=== PATIENT | male | born 1965 | race Caucasian/White ===

== ENCOUNTER → 2017-07-05 11:59 | Outpatient (CLI) | payer OTHER, SELFPAY ==
[2017-07-05 13:11] LABS: Hemoglobin A1c 5.4 % (4.2-6.3)
[2017-07-05 13:17] LABS: Anion Gap 8 (5-15); BUN 14 mg/dL (7-18); Calcium,Total 8.9 mg/dL (8.5-10.1); Chloride 105 mmol/L (98-107); Cholesterol 189 mg/dL (200); Creatinine, Serum 0.94 mg/dL (0.70-1.30); EST Glomerular Filtration Rate 90 mL/min (>60); Est Glom Filt Rate - Afr Amer 109 mL/min (>60); Free T3 3.3 pg/mL (2.18-3.98); Glucose 93 mg/dL (70-110); High Density Lipoprotein 37 mg/dL; Potassium 3.5 mmol/L (3.5-5.1); Sodium Level 140 mmol/L (136-145); T4 Free Direct 0.97 ng/dL (0.76-1.46); Thyroid Stim Hormone (TSH) 0.47 uIU/mL (0.358-3.74); Triglycerides 124 mg/dL; Very Low Density Lipoprotein 25 mg/dL (5-40)
== END ==
PROVIDERS: Family Provider Family Medicine; PCP Family Medicine; Visit Provider Psychiatry & Neurology Psychiatry
DX: F25.9 Schizoaffective disorder, unspecified (principal); Z51.81 Encounter for therapeutic drug level monitoring; Z79.899 Other long term (current) drug therapy
CPT/HCPCS: 36415; 80048; 80061; 80178; 83036; 84439; 84443; 84481

== ENCOUNTER → 2018-01-06 11:14 | Outpatient (CLI) | payer OTHER, SELFPAY ==
[2018-01-06 13:18] LABS: Anion Gap 10 (5-15); BUN 21 mg/dL (7-18); BUN/Creat Ratio 21.8 RATIO (10-20); Calcium,Total 9.1 mg/dL (8.5-10.1); Chloride 106 mmol/L (98-107); Creatinine, Serum 0.96 mg/dL (0.70-1.30); EST Glomerular Filtration Rate 87 mL/min (>60); Est Glom Filt Rate - Afr Amer 105 mL/min (>60); Free T3 3.2 pg/mL (2.18-3.98); Glucose 87 mg/dL (74-106); Potassium 3.7 mmol/L (3.5-5.1); Sodium Level 142 mmol/L (136-145); T4 Free Direct 0.89 ng/dL (0.76-1.46); Thyroid Stim Hormone (TSH) 1.42 uIU/mL (0.358-3.74)
== END ==
PROVIDERS: Family Provider Family Medicine; PCP Family Medicine; Visit Provider Psychiatry & Neurology Psychiatry
DX: F25.9 Schizoaffective disorder, unspecified (principal)
CPT/HCPCS: 36415; 80048; 80178; 84439; 84443; 84481

== ENCOUNTER 2018-01-26 11:40 | Emergency (ER) | payer OTHER, SELFPAY ==
[2018-01-26 11:42] VITALS: BP 154/85; PULSE 63; RESP 18; TEMP 36.9; O2SAT 99; BMI 32.5
--- NOTE | 2018-01-26 12:10 | ED.VISSUMM ---
- ER Visit Summary Date of Service: 01/26/18 Chief Complaint: Nausea, vomiting History of Present Illness: The patient is a 52 M presenting with nausea, vomiting. He states this started around midnight. He has had approximately 8 episodes of vomiting. He denies diarrhea. Denies blood in his emesis. He has epigastric abdominal pain. He had subjective fever initially but he states this has since resolved. He denies sick contacts. He states he ate fried chicken last night. He has a history of hiatal hernia and acid reflux. He was switched from Prevacid to Zantac and would like to be switched back to Prevacid. He has history of appendectomy. No other complaints. Physical Examination: Vitals are stable. Patient is afebrile. Alert no acute distress. HEENT exam scleral icterus Neck is supple. Lungs are clear and equal bilaterally. Heart is regular rate and rhythm. Abdomen is soft mild epigastric tenderness with no rebound or guarding Extremities are unremarkable. Skin is warm and dry. No focal neurologic deficit. Remainder of exam is unremarkable. Emergency Department Course and Treatment: Patient given IV fluids, Zofran. EKG is sinus rate 71 with no acute ischemic changes. CBC shows a white count of 14.4. Chemistries show glucose 153. Liver enzymes show total bili 2.7, direct bili 1.3, alk phos 210, ALT 847, AST 643, lipase 8368. Troponin is negative. CT abdomen and pelvis shows there is new peripancreatic mild inflammation consistent with acute pancreatitis. Gallbladder ultrasound shows there are multiple gallstones and sludge, gallbladder wall thickening, gallbladder distention. Common bile duct is dilated. He is given Zosyn IV. [facility]. Discussed with [facility] for transfer. Disposition: Transfer [facility] Impression: Gallstone pancreatitis This note was generated with [employer] dictation software. It may contain incorrect words, spelling, and punctuation that were not noted in review of the chart prior to signing ED Disposition - Plan for ED Patient: Chief Complaint: Nausea/Vomiting Referrals: Alfred Torres III, MD [Primary Care Provider] -
[2018-01-26] MEDS: 0.9% Normal Saline 1,000 ML 1000 ML IV (12:28)
[2018-01-26] MEDS: Ondansetron 4 MG/2 ML Vial IV ×2 (12:29→16:35)
[2018-01-26 12:31] LABS: Absolute Neutrophil Count 12.8 X10^3/uL (2.0-7.7); Basophil# 0.01 X10^3/uL; Basophil% 0.1 % (0-1); Hemoglobin 14.6 g/dl (13.0-16.5); Lymphocyte % 5.5 % (19-41); Mean Corp Hgb Conc 34.8 g/gl (32-36); Mean Corpuscular Hgb 29.3 pg (27.0-32.0); Mean Corpuscular Volume 84.3 fL (80-94); Mean Platelet Vol. 9.3 fl (6.2-12.0); Monocyte# 0.74 X10^3/uL; Monocyte% 5.1 % (0-10); Neutrophil # 12.84 X10^3/uL (2.7-7.7); Neutrophil % 89.1 % (47-70); Platelet Count 288 K/mm3 (150-450); RBC Distribution Width CV 12.9 % (11.6-14.6); RBC Distribution Width SD 39.5 fl (35.1-43.9); Red Blood Count 4.98 M/mm3 (4.6-6.2); White Blood Count 14.4 K/mm3 (4.4-11.0)
[2018-01-26 12:36] LABS: POSITIVE COUNT NO; POSITIVE DIFFERENTIAL NO; POSITIVE MORPHOLOGY NO
[2018-01-26 12:51] LABS: AST(SGOT) 643 U/L (15-37); Alanine Aminotransfer ALT/SGPT 847 U/L (16-61); Albumin, Serum 3.7 g/dL (3.2-5.0); Alkaline Phosphatase 210 U/L (45-117); Anion Gap 7 (5-15); BUN 15 mg/dL (7-18); BUN/Creat Ratio 16.1 RATIO (10-20); Chloride 104 mmol/L (98-107); Creatinine, Serum 0.93 mg/dL (0.70-1.30); EST Glomerular Filtration Rate 90 mL/min (>60); Est Glom Filt Rate - Afr Amer 109 mL/min (>60); Estimated Creatinine Clearance 92.92 ml/min; Globulin 4.6 g/dL (2.2-4.2); Glucose 153 mg/dL (74-106); Lipase 8368 U/L (73-393); Potassium 3.5 mmol/L (3.5-5.1); Protein, Total 8.3 g/dL (6.4-8.2); Sodium Level 139 mmol/L (136-145)
[2018-01-26 13:24] VITALS: BP 155/79; PULSE 51; RESP 18; O2SAT 97
[2018-01-26 15:47] VITALS: BP 137/76; PULSE 50; RESP 16; O2SAT 97
[2018-01-26] MEDS: Piperacil/Tazobactam 3.375 GM/50 ML ML IV (16:59)
[2018-01-26 17:49] VITALS: BP 153/88; PULSE 87; RESP 16; TEMP 36.6; O2SAT 99
== END 2018-01-26 17:51 | disposition short-term general hospital (02) ==
LOC: ED 12:42
PROVIDERS: Emergency Provider Emergency Medicine; Family Provider Family Medicine; PCP Family Medicine
DX: K85.10 Biliary acute pancreatitis without necrosis or infection (principal); K44.9 Diaphragmatic hernia without obstruction or gangrene; R10.13 Epigastric pain; K21.9 Gastro-esophageal reflux disease without esophagitis; F25.9 Schizoaffective disorder, unspecified; Z79.899 Other long term (current) drug therapy
CPT/HCPCS: 74177; 76705; 80048; 80076; 83690; 84484; 85025; 93005; 96361; 96365; 96375; 96376; 99284; J7030; J7040; Q9967; A4216; J2405

== ENCOUNTER → 2018-04-14 09:05 | Outpatient (CLI) | payer OTHER, SELFPAY ==
[2018-04-14 10:08] LABS: PSA,Total - Annual Screen 4.41 ng/mL (0.00-4.00)
== END ==
PROVIDERS: Family Provider Family Medicine; PCP Family Medicine; Referring Provider Urology; Visit Provider Urology
DX: R97.20 Elevated prostate specific antigen [PSA] (principal)
CPT/HCPCS: 36415; 84153; G0103

== ENCOUNTER → 2018-06-27 11:55 | Outpatient (CLI) | payer OTHER, SELFPAY ==
[2018-06-27 13:34] LABS: Anion Gap 9 (5-15); BUN 17 mg/dL (7-18); BUN/Creat Ratio 15.9 RATIO (10-20); Calcium,Total 8.7 mg/dL (8.5-10.1); Chloride 105 mmol/L (98-107); Creatinine, Serum 1.07 mg/dL (0.70-1.30); EST Glomerular Filtration Rate 77 mL/min (>60); Est Glom Filt Rate - Afr Amer 93 mL/min (>60); Free T3 2.7 pg/mL (2.18-3.98); Glucose 106 mg/dL (74-106); Potassium 3.5 mmol/L (3.5-5.1); Sodium Level 141 mmol/L (136-145); T4 Free Direct 0.88 ng/dL (0.76-1.46); Thyroid Stim Hormone (TSH) 2.04 uIU/mL (0.358-3.74)
== END ==
PROVIDERS: Family Provider Family Medicine; PCP Family Medicine; Referring Provider Psychiatry & Neurology Psychiatry; Visit Provider Psychiatry & Neurology Psychiatry
DX: F25.9 Schizoaffective disorder, unspecified (principal); E03.9 Hypothyroidism, unspecified; Z79.899 Other long term (current) drug therapy
CPT/HCPCS: 36415; 80048; 80178; 84439; 84443; 84481

== ENCOUNTER → 2018-10-10 16:16 | Outpatient (CLI) | payer OTHER, SELFPAY ==
[2018-10-10 17:41] LABS: PSA,Total- Diagnostic 4.02 ng/mL (0.0-4.0)
== END ==
PROVIDERS: Family Provider Family Medicine; PCP Family Medicine; Referring Provider Urology; Visit Provider Urology
DX: R97.20 Elevated prostate specific antigen [PSA] (principal)
CPT/HCPCS: 36415; 84153

== ENCOUNTER → 2019-01-02 07:34 | Outpatient (CLI) | payer OTHER, SELFPAY ==
[2019-01-02 08:58] LABS: Anion Gap 7 (5-15); BUN 16 mg/dL (7-18); BUN/Creat Ratio 14.2 RATIO (10-20); Calcium,Total 9.1 mg/dL (8.5-10.1); Chloride 107 mmol/L (98-107); Creatinine, Serum 1.13 mg/dL (0.70-1.30); EST Glomerular Filtration Rate 72 mL/min (>60); Est Glom Filt Rate - Afr Amer 87 mL/min (>60); Glucose 82 mg/dL (74-106); Potassium 3.9 mmol/L (3.5-5.1); Sodium Level 143 mmol/L (136-145); T4 Free Direct 0.84 ng/dL (0.76-1.46); Thyroid Stim Hormone (TSH) 0.91 uIU/mL (0.358-3.74)
== END ==
PROVIDERS: Family Provider Family Medicine; PCP Family Medicine; Referring Provider Psychiatry & Neurology Psychiatry; Visit Provider Psychiatry & Neurology Psychiatry
DX: E03.9 Hypothyroidism, unspecified (principal)
CPT/HCPCS: 36415; 80048; 80178; 84439; 84443; 84481

== ENCOUNTER → 2019-02-25 07:31 | Outpatient (CLI) | payer OTHER, SELFPAY ==
[2019-02-25 09:29] LABS: T4 Free Direct 0.93 ng/dL (0.76-1.46); Thyroid Stim Hormone (TSH) 0.87 uIU/mL (0.358-3.74)
== END ==
PROVIDERS: Family Provider Family Medicine; PCP Family Medicine; Referring Provider Psychiatry & Neurology Psychiatry; Visit Provider Psychiatry & Neurology Psychiatry
DX: E03.9 Hypothyroidism, unspecified (principal)
CPT/HCPCS: 36415; 84439; 84443; 84481

== ENCOUNTER → 2019-06-30 08:18 | Outpatient (CLI) | payer OTHER, SELFPAY ==
[2019-06-30 10:57] LABS: Anion Gap 2 (5-15); BUN 13 mg/dL (7-18); BUN/Creat Ratio 12.1 RATIO (10-20); Calcium,Total 9.9 mg/dL (8.5-10.1); Chloride 101 mmol/L (98-107); Creatinine, Serum 1.07 mg/dL (0.70-1.30); EST Glomerular Filtration Rate 77 mL/min (>60); Est Glom Filt Rate - Afr Amer 93 mL/min (>60); Free T3 3.1 pg/mL (2.18-3.98); Glucose 74 mg/dL (74-106); Potassium 3.6 mmol/L (3.5-5.1); Sodium Level 134 mmol/L (136-145); T4 Free Direct 1.08 ng/dL (0.76-1.46); Thyroid Stim Hormone (TSH) 0.27 uIU/mL (0.358-3.74)
== END ==
PROVIDERS: PCP Family Medicine; Referring Provider Psychiatry & Neurology Psychiatry; Visit Provider Psychiatry & Neurology Psychiatry
DX: E03.9 Hypothyroidism, unspecified (principal); Z51.81 Encounter for therapeutic drug level monitoring; Z79.899 Other long term (current) drug therapy
CPT/HCPCS: 36415; 80048; 80178; 84439; 84443; 84481

== ENCOUNTER → 2020-01-11 11:18 | Outpatient (CLI) | payer OTHER, SELFPAY ==
[2020-01-11 13:15] LABS: ALB/GLOB Ratio 0.9 RATIO (0.9-2.4); AST(SGOT) 17 U/L (15-37); Alanine Aminotransfer ALT/SGPT 25 U/L (16-61); Albumin, Serum 3.7 g/dL (3.2-5.0); Alkaline Phosphatase 57 U/L (45-117); Anion Gap 6 (5-15); BUN 19 mg/dL (7-18); BUN/Creat Ratio 19.3 RATIO (10-20); Chloride 107 mmol/L (98-107); Cholesterol 177 mg/dL (200); Creatinine, Serum 0.98 mg/dL (0.70-1.30); EST Glomerular Filtration Rate 84 mL/min (>60); Est Glom Filt Rate - Afr Amer 102 mL/min (>60); Free T3 2.9 pg/mL (2.18-3.98); Globulin 3.9 g/dL (2.2-4.2); Glucose 92 mg/dL (74-106); High Density Lipoprotein 39 mg/dL; Potassium 3.7 mmol/L (3.5-5.1); Protein, Total 7.6 g/dL (6.4-8.2); Sodium Level 139 mmol/L (136-145); T4 Free Direct 0.99 ng/dL (0.76-1.46); Thyroid Stim Hormone (TSH) 0.71 uIU/mL (0.358-3.74); Triglycerides 115 mg/dL; Very Low Density Lipoprotein 23 mg/dL (5-40)
== END ==
PROVIDERS: PCP Family Medicine; Visit Provider Psychiatry & Neurology Psychiatry
DX: E03.9 Hypothyroidism, unspecified (principal); Z79.899 Other long term (current) drug therapy
CPT/HCPCS: 36415; 80053; 80061; 80178; 84439; 84443; 84481

== ENCOUNTER → 2020-03-03 12:32 | Outpatient (CLI) | payer OTHER, SELFPAY ==
[2020-03-03 15:33] LABS: PSA,Total- Diagnostic 3.24 ng/mL (0.0-4.0)
== END ==
PROVIDERS: PCP Family Medicine; Referring Provider Urology; Visit Provider Urology
DX: R97.20 Elevated prostate specific antigen [PSA] (principal)
CPT/HCPCS: 36415; 84153

== ENCOUNTER → 2020-08-22 07:30 | Outpatient (CLI) | payer OTHER, SELFPAY ==
[2020-08-22 08:38] LABS: AST(SGOT) 19 U/L (15-37); Alanine Aminotransfer ALT/SGPT 35 U/L (16-61); Albumin, Serum 3.7 g/dL (3.2-5.0); Alkaline Phosphatase 60 U/L (45-117); Anion Gap 4 (5-15); BUN 22 mg/dL (7-18); BUN/Creat Ratio 22.6 RATIO (10-20); Calcium,Total 8.9 mg/dL (8.5-10.1); Chloride 108 mmol/L (98-107); Cholesterol 179 mg/dL (200); Creatinine, Serum 0.97 mg/dL (0.70-1.30); EST Glomerular Filtration Rate 85 mL/min (>60); Est Glom Filt Rate - Afr Amer 103 mL/min (>60); Free T3 2.8 pg/mL (2.18-3.98); Globulin 3.8 g/dL (2.2-4.2); Glucose 95 mg/dL (74-106); High Density Lipoprotein 38 mg/dL; Potassium 4.1 mmol/L (3.5-5.1); Protein, Total 7.5 g/dL (6.4-8.2); Sodium Level 139 mmol/L (136-145); T4 Free Direct 0.93 ng/dL (0.76-1.46); Thyroid Stim Hormone (TSH) 0.85 uIU/mL (0.358-3.74); Triglycerides 105 mg/dL; Very Low Density Lipoprotein 21 mg/dL (5-40)
== END ==
PROVIDERS: PCP Family Medicine
DX: E88.81 Metabolic syndrome and other insulin resistance (principal)
CPT/HCPCS: 36415; 80053; 80061; 84439; 84443; 84481

== ENCOUNTER 2022-12-22 08:55 | Emergency (ER) | payer OTHER, SELFPAY ==
[2022-12-22 08:56] VITALS: BP 123/80; PULSE 73; RESP 16; TEMP 36.2; O2SAT 98; BMI 28.0
--- NOTE | 2022-12-22 09:21 | EX.ED.DYSGE1 ---
HPI History of Present Illness Chief Complaint: Dizziness Narrative Narrative: 57-year-old male past medical history of previous vertigo episode 15 years ago presents with dizziness that he has had since evening, 2-1/2 days ago. He states that at work, he began feeling vertiginous-like symptoms. It was worse when he bent forward, and when he looks up or down. He does describe a mild spinning sensation associated with nausea but no vomiting. No other neurological symptoms, he states he gets more dizzy when he turns his head side to side as well. This is very similar to his vertigo when he states that he had a maneuver performed and was given the medication to take for when it flares up. He really has not had problems in years, but this feels very similar. He denies any paresthesias, or any other symptoms. PFSH PFSH Home Medications lamotrigine 100 mg tablet,extended release 24 hr (Lamictal XR) 100 mg PO DAILY 09/16/16 [History Last Taken 09/16/16 04:00] levothyroxine 88 mcg tablet 88 mcg PO DAILY 09/16/16 [History Last Taken 09/16/16 04:00] liothyronine 5 mcg tablet 10 mcg PO BREAKFAST 09/16/16 [History Last Taken 09/16/16 04:00] lithium carbonate 300 mg tablet,extended release 600 mg PO QHS 09/16/16 [History Last Taken 02/22/17] methylphenidate HCl 10 mg tablet,extended release 10 mg PO BID 09/16/16 [History Last Taken 09/16/16 21:00] propranolol 10 mg tablet 20 mg PO BREAKFAST 09/16/16 [History Last Taken 09/16/16 21:00] risperidone 3 mg tablet (Risperdal) 3 mg PO QHS 09/16/16 [History Last Taken 09/16/16 21:00] liothyronine 5 mcg tablet 5 mcg PO DINNER 09/17/16 [History Last Taken 09/16/16 16:30] propranolol 10 mg tablet 20 mg PO 1700 02/23/17 [History Last Taken Unknown] Ranitidine [Zantac] 150 mg PO DAILY 01/26/18 [History Last Taken Unknown] meclizine 25 mg tablet 25 mg PO 4X/DAY PRN PRN Dizziness #20 tabs 12/22/22 [Rx Last Taken Unknown] Allergy/AdvReac Type Severity Reaction Status Date / Time latex Allergy Rash Verified 12/22/22 08:59 red dye Allergy Rash Verified 12/22/22 08:59 Sulfa (Sulfonamide Allergy Unknown Verified 12/22/22 08:59 Antibiotics) flonase AdvReac Mild nose bleed Uncoded 12/22/22 08:59 Social History Smoking Status: Never smoker ROS ROS ED ROS Narrative Constitutional: No fever, no chills. HEENT: No sore throat. No neck pain. No loss of vision. No rhinorrhea. Cardiovascular: No chest pain. No palpitations. No pedal edema. Respiratory: No cough, no shortness of breath. Abdominal: No abdominal pain. Positive nausea. No vomiting. Genitourinary: No dysuria. No hematuria. Musculoskeletal: No myalgias. No arthralgias. Neurologic: No headaches. Positive vertigo worse with looking up and down, bending forward, and moving head [id number]. No lightheadedness. Skin: No rash. No change in color. Psychiatric: No depression. No anxiety. EXAM Physical Exam Narrative Exam Narrative: Afebrile. Vital signs noted. HEENT: Normocephalic. Atraumatic. PERRL, EOMI. Neck soft and supple. No point tenderness or step off. Cardiovascular: Regular rate and rhythm. No murmurs, rubs, or gallops appreciated. Respiratory: No tachypnea. Lungs clear to auscultation bilaterally. Gastrointestinal: Abdomen soft, nontender, with normoactive bowel sounds. No rebound or guarding. Neurological: Awake. Alert. Oriented x3. Nonfocal, nonlateralizing. DTRs equal and symmetric. Skin: No rash. Normal color. No pallor. Musculoskeletal: No pedal edema. Full range of motion extremities. Const Vital Signs: 12/22/22 08:56 Temperature 97.2 F L Temperature Source Temporal Pulse Rate 73 Respiratory Rate 16 Blood Pressure 123/80 H Blood Pressure Mean 94 Pulse Ox 98 Oxygen Delivery Method Room Air MDM MDM MDM Narrative Medical decision making narrative: I reviewed the patient's prior records. Although he has history of schizoaffective disorder and takes lithium, I do not feel that this is lithium toxicity. Chinyere maneuver was performed, and the patient showed mild to moderate improvement. He was given a meclizine tablet here in the emergency department and I wrote him a prescription to take 4 times a day as needed. I do not feel that CT imaging of the brain is indicated, nor do I feel that currently any laboratory work is indicated. He showed improvement with the maneuver and with meclizine. Upon repeat examination at approximately 10:15 AM, he is feeling improved. His is comfortable taking him home. I feel he can be discharged safely home with follow-up to his primary care provider. He was given a prescription for meclizine as stated previously. Return instructions to the emergency department were reviewed. Disposition is discharged home in improved and stable condition. Discharge Plan Triage Chief Complaint: Dizziness ED Provider: Manoj Fritz Dx/Rx/DC Orders Clinical Impression: Vertigo, Bipolar disorder Instructions: ED BPV Vertigo Prescriptions: New meclizine 25 mg tablet 25 mg PO 4X/DAY PRN PRN (Reason: Dizziness) Qty: 20 0RF No Action methylphenidate HCl 10 MG tablet extended release 10 mg PO BID Patient Comments: helps with concentration - states he usually only takes during week when he needs to concentrate lithium carbonate 300 MG tablet extended release 600 mg PO QHS Patient Comments: supplement liothyronine 5 MCG tablet 10 mcg PO BREAKFAST Patient Comments: thyroid risperidone [Risperdal] 3 MG tablet 3 mg PO QHS Patient Comments: bipolar levothyroxine 88 MCG tablet 88 mcg PO DAILY Patient Comments: thyroid propranolol 10 MG tablet 20 mg PO BREAKFAST Patient Comments: tremors lamotrigine [Lamictal XR] 100 MG tablet extended release 24hr 100 mg PO DAILY Patient Comments: bipolar liothyronine 5 MCG tablet 5 mcg PO DINNER Patient Comments: thyroid propranolol 10 MG tablet 20 mg PO 1700 Patient Comments: TREMORS Ranitidine [Zantac] 150 MG tablet 150 mg PO DAILY Primary Care Provider: Ziyad Antunez Disposition Disposition: Home, Self Care
[2022-12-22] MEDS: Meclizine HCl 25 MG Tablet PO (09:28)
== END 2022-12-22 10:19 | disposition home or self-care (01) ==
PROVIDERS: Emergency Provider Emergency Medicine; PCP Family Medicine; Visit Provider Emergency Medicine
DX: R42 Dizziness and giddiness (principal); F25.9 Schizoaffective disorder, unspecified; F31.9 Bipolar disorder, unspecified; Z79.899 Other long term (current) drug therapy
CPT/HCPCS: 99283

== ENCOUNTER 2023-01-05 21:50 | Emergency (ER) | payer OTHER, SELFPAY ==
[2023-01-05 21:50] VITALS: BP 125/82; PULSE 94; RESP 15; TEMP 36.7; O2SAT 96; BMI 27.3
--- NOTE | 2023-01-05 22:38 | EDS_ITS ---
HPI History of Present Illness Chief Complaint: Nausea/Vomiting/Diarrhea Informant: patient and spouse/S.O. Narrative Narrative: Patient presents with nausea vomiting diarrhea. Patient states he felt fine yesterday. Last evening about 8 PM he had some [place] food. In less than 30 minutes he started with nausea vomiting. He has been vomiting anything he tries to eat or drink since. He has had some watery diarrhea that is also developed. He has never had blood in the stool or vomitus. No fevers. He states his stomach does not hurt he just cannot keep anything down. This is not a recurrent problem or something he has had issues with before. He does have GERD but this does not at all feel like it. He is on medicines for psychiatric illness as well as thyroid disease but none of these are new or different meds or dosages. Prior surgeries include both gallbladder and appendectomy. [facility] Medical History Bipolar 1 disorder Hypothyroid Home Medications lamotrigine 100 mg tablet,extended release 24 hr (Lamictal XR) 100 mg PO DAILY 09/16/16 [History Last Taken 01/04/23] levothyroxine 88 mcg tablet 88 mcg PO DAILY 09/16/16 [History Last Taken 01/04/23] liothyronine 5 mcg tablet 10 mcg PO BREAKFAST 09/16/16 [History Last Taken 01/04/23] methylphenidate HCl 10 mg tablet,extended release 15 mg PO BID 09/16/16 [History Last Taken 09/16/16 21:00] propranolol 10 mg tablet 10 mg PO Q12H 09/16/16 [History Last Taken 01/04/23] risperidone 3 mg tablet (Risperdal) 3 mg PO QHS 09/16/16 [History Last Taken 01/04/23] liothyronine 5 mcg tablet 5 mcg PO DINNER 09/17/16 [History Last Taken 01/04/23] meclizine 25 mg tablet 25 mg PO 4X/DAY PRN PRN Dizziness #20 tabs 12/22/22 [Rx Last Taken Unknown] famotidine 20 mg tablet (Acid Controller) 20 mg PO BID 01/05/23 [History Last Taken Unknown] ondansetron 4 mg disintegrating tablet 4 mg PO Q8H PRN PRN Nausea #10 tabs 01/06/23 [Rx Last Taken Unknown] promethazine 25 mg tablet 25 mg PO Q6H PRN PRN Nausea #10 TABLETS 01/06/23 [Rx Last Taken Unknown] Allergy/AdvReac Type Severity Reaction Status Date / Time latex Allergy Rash Verified 12/22/22 08:59 red dye Allergy Rash Verified 01/05/23 21:54 Sulfa (Sulfonamide Allergy Unknown Verified 01/05/23 21:54 Antibiotics) flonase AdvReac Mild nose bleed Uncoded 12/22/22 08:59 Social History Smoking Status: Never smoker ROS ROS ED ROS Narrative A complete review of systems was performed and is negative except as documented in the history of present illness. Some specific details below. Constitutional: No recent fevers or chills. EYE: No visual complaints or pain. ENT: No difficulty swallowing. No swelling. No pain. No GERD symptoms. CV: No chest pain or palpitations. Respiratory: No dyspnea. No hemoptysis. No difficulty taking breaths. GI: Please see history of present illness. : No frequency dysuria or hematuria. He is still making urine. Musculoskeletal: No recent trauma. No pains. Skin: No rash. Nondiaphoretic. Neuro: No weakness or numbness. Endocrine: No polyuria or polydipsia. EXAM Physical Exam Narrative Exam Narrative: CONSTITUTIONAL: Patient is nontoxic in appearance. The patient looks comfortable. HEENT: No notable trauma. Mucous membranes do look dry. No thrush. No indication of pain with swallowing. EYES: No conjunctival injection. No proptosis. CARDIOVASCULAR: Regular rate. Regular rhythm. No notable murmur. No JVD. He is not tachycardic. RESPIRATORY: No respiratory distress. Breathing is unlabored. No wheezes. No rhonchi. No rales. No pain with a deep breath. GASTROINTESTINAL: Not distended. Bowel sounds are normal to possibly just slightly increased. No tenderness. No guarding. No rebound. No palpable mass. No bruit. Overall his abdomen is quite benign. GENITOURINARY: No tenderness over the bladder. No CVA tenderness. MUSCULOSKELETAL: Atraumatic. No peripheral edema. No cord. No tenderness along the deep venous system. No asymmetry. NEUROLOGICAL: Patient is alert and appropriate. No focal deficit noted. SKIN: No noted rashes. No diaphoresis. PSYCHIATRIC: Patient is calm. Mood is appropriate. Const Vital Signs: 01/05/23 21:50 01/05/23 23:50 Temperature 98.1 F 98.2 F Temperature Source Temporal Oral Pulse Rate 94 66 Respiratory Rate 15 16 Blood Pressure 125/82 H 133/80 H Blood Pressure Mean 96 97 Pulse Ox 96 98 Oxygen Delivery Method Room Air Room Air MDM MDM MDM Narrative Medical decision making narrative: Patient may have viral illness or reaction to food. MSG reaction is possible but he does not have palpitations chest pain headache tingling or, no other symptoms. We will do some basic blood work to make sure he does not have a markedly abnormal white count, anemia or acute kidney injury or electrolyte abnormalities of significance. I did not do a liver function test that there is no indication of jaundice or hepatic tenderness. I did not do lipase as there is no abdominal or back pain or tenderness. There is no history of pancreatitis. 12: 40 Patient has gotten IV fluids and Zofran. He has no nausea at all now. He does feel better. He looks better. We will try him on some p.o. fluids. Patient CBC shows no acute abnormalities. Patient's electrolytes show mild elevation in the BUN and BUN to creatinine ratio consistent with dehydration but creatinine is preserved. Patient's glucose was a bit high at 113 but this should self correct. 01: 40 Patient is rechecked. He has been drinking liquids. The nausea is gone. He is still having some diarrhea with the liquid. But he feels much better. We will get him home. I explained that we usually do not give much stop the diarrhea in the first few days. Hopefully this will be gone within 1 to 3 days. I will write for Zofran and Phenergan so he has options. We discussed reasons to return. Lab Data Attestation: I reviewed the patient's lab results. Labs: Laboratory Results - last 24 hr 01/05/23 23:40 WBC 8.1 RBC 5.27 Hgb 15.1 Hct 46.2 MCV 87.7 MCH 28.7 MCHC 32.7 RDW Std Deviation 43.1 RDW Coeff of Monica 13.3 Plt Count 290 MPV 9.5 Immature Gran % (Auto) 0.200 Neut % (Auto) 60.0 Lymph % (Auto) 24.6 [place] % (Auto) 14.3 H Eos % (Auto) 0.5 Baso % (Auto) 0.4 Absolute Neuts (auto) 4.9 Absolute Lymphs (auto) 2.00 Nucleated RBC % 0 Sodium 141 Potassium 3.6 Chloride 109 H Carbon Dioxide 26.0 Anion Gap 6 BUN 31 H Creatinine 0.98 Estim Creat Clear Calc 83.16 Est GFR (MDRD) Af Amer 101 Est GFR (MDRD) Non-Af 84 BUN/Creatinine Ratio 31.6 H Glucose 113 H Calcium 9.3 Discharge Plan Triage Chief Complaint: Nausea/Vomiting/Diarrhea ED Provider: Zay Olivarez Dx/Rx/DC Orders Clinical Impression: Nausea vomiting and diarrhea, Acute dehydration Instructions: ED Diet Vomiting Diarrhea, ED Food Poisoning (Adult) Prescriptions: New promethazine [promethazine] 25 mg tablet 25 mg PO Q6H PRN PRN (Reason: Nausea) Qty: 10 0RF ondansetron [ondansetron] 4 mg tablet,disintegrating 4 mg PO Q8H PRN PRN (Reason: Nausea) Qty: 10 0RF No Action methylphenidate HCl 10 MG tablet extended release 15 mg PO BID Patient Comments: helps with concentration - states he usually only takes during week when he needs to concentrate liothyronine 5 MCG tablet 10 mcg PO BREAKFAST Patient Comments: thyroid risperidone [Risperdal] 3 MG tablet 3 mg PO QHS Patient Comments: bipolar levothyroxine 88 MCG tablet 88 mcg PO DAILY Patient Comments: thyroid propranolol 10 MG tablet 10 mg PO Q12H Patient Comments: tremors lamotrigine [Lamictal XR] 100 MG tablet extended release 24hr 100 mg PO DAILY Patient Comments: bipolar liothyronine 5 MCG tablet 5 mcg PO DINNER Patient Comments: thyroid meclizine 25 mg tablet 25 mg PO 4X/DAY PRN PRN (Reason: Dizziness) Qty: 20 0RF famotidine [Acid Controller] 20 mg tablet 20 mg PO BID Primary Care Provider: Ziyad Antunez Referrals: Ziyad Antunez MD [Primary Care Provider] - 1-2 Days if not improving Disposition Disposition: Home, Self Care
[2023-01-05 23:50] VITALS: BP 133/80; PULSE 66; RESP 16; TEMP 36.8; O2SAT 98
[2023-01-06 00:03] LABS: Absolute Neutrophil Count 4.9 X10^3/uL (2.0-7.7); Basophil# 0.03 X10^3/uL; Basophil% 0.4 % (0-1); Eosinophil# 0.04 X10^3/uL; Eosinophils% 0.5 % (0-5); Hematocrit 46.2 % (40-54); Hemoglobin 15.1 g/dL (13.0-16.5); Lymphocyte % 24.6 % (19-41); Mean Corp Hgb Conc 32.7 g/dL (32-36); Mean Corpuscular Hgb 28.7 pg (27.0-32.0); Mean Corpuscular Volume 87.7 fL (80-94); Mean Platelet Vol. 9.5 fl (6.2-12.0); Monocyte# 1.16 X10^3/uL; Monocyte% 14.3 % (0-10); NRBC Flagged by Analyzer 0 % (0-5); Neutrophil # 4.89 X10^3/uL (2.7-7.7); Platelet Count 290 K/mm3 (150-450); RBC Distribution Width CV 13.3 % (11.6-14.6); RBC Distribution Width SD 43.1 fl (35.1-43.9); Red Blood Count 5.27 M/mm3 (4.6-6.2); White Blood Count 8.1 K/mm3 (4.4-11.0)
[2023-01-06] MEDS: 0.9% Normal Saline 1,000 ML 1000 ML IV (00:14)
[2023-01-06] MEDS: Ondansetron 4 MG/2 ML Vial IV (00:15)
[2023-01-06 00:20] LABS: Anion Gap 6 (5-15); BUN 31 mg/dL (7-18); BUN/Creat Ratio 31.6 RATIO (10-20); Calcium,Total 9.3 mg/dL (8.5-10.1); Chloride 109 mmol/L (98-107); Creatinine, Serum 0.98 mg/dL (0.70-1.30); EST Glomerular Filtration Rate 84 mL/min (>60); Est Glom Filt Rate - Afr Amer 101 mL/min (>60); Estimated Creatinine Clearance 83.16 ml/min; Glucose 113 mg/dL (74-106); Potassium 3.6 mmol/L (3.5-5.1); Sodium Level 141 mmol/L (136-145)
[2023-01-06 01:00] VITALS: BP 128/80; PULSE 68; RESP 16; TEMP 36.6; O2SAT 98
[2023-01-06 02:08] VITALS: BP 122/80; PULSE 67; RESP 16; TEMP 36.6; O2SAT 99
== END 2023-01-06 02:10 | disposition home or self-care (01) ==
PROVIDERS: Emergency Provider Emergency Medicine; PCP Family Medicine; Visit Provider Emergency Medicine
DX: R11.2 Nausea with vomiting, unspecified (principal); F31.9 Bipolar disorder, unspecified; E86.0 Dehydration; R19.7 Diarrhea, unspecified; E03.9 Hypothyroidism, unspecified; K21.9 Gastro-esophageal reflux disease without esophagitis; Z79.899 Other long term (current) drug therapy; Z79.890 Hormone replacement therapy
CPT/HCPCS: 80048; 85025; 96361; 96374; 99282; J7030; A4216; J2405

== ENCOUNTER 2024-04-22 13:43 | Emergency (ER) | payer OTHER, SELFPAY ==
[2024-04-22 13:44] VITALS: BP 143/89; PULSE 90; RESP 16; TEMP 37.3; O2SAT 98; BMI 30.2
[2024-04-22 14:24] LABS: Absolute Lymphocyte Count 1.47 X10^3/uL (0.83-4.51); Absolute Neutrophil Count 3.3 X10^3/uL (2.0-7.7); Basophil# 0.03 X10^3/uL; Basophil% 0.6 % (0-1); Eosinophil# 0.08 X10^3/uL; Eosinophils% 1.5 % (0-5); Hemoglobin 14.2 g/dL (13.0-16.5); Lymphocyte # 1.47 X10^3/ul (0.83-4.51); Lymphocyte % 27.3 % (19-41); Mean Corp Hgb Conc 33.8 g/dL (32-36); Mean Corpuscular Volume 85.9 fL (80-94); Mean Platelet Vol. 9.1 fl (6.2-12.0); Monocyte# 0.47 X10^3/uL; Monocyte% 8.7 % (0-10); NRBC Flagged by Analyzer 0 % (0-5); Neutrophil # 3.31 X10^3/uL (2.7-7.7); Neutrophil % 61.5 % (47-70); Platelet Count 259 K/mm3 (150-450); RBC Distribution Width SD 40.1 fl (35.1-43.9); Red Blood Count 4.89 M/mm3 (4.6-6.2); White Blood Count 5.4 K/mm3 (4.4-11.0)
[2024-04-22 14:44] VITALS: BP 134/80; PULSE 76; RESP 23; O2SAT 95
[2024-04-22 14:47] LABS: Anion Gap 6 (5-15); BUN 18 mg/dL (7-18); Calcium,Total 9.3 mg/dL (8.5-10.1); Chloride 107 mmol/L (98-107); Creatinine, Serum 1.29 mg/dL (0.70-1.30); EST Glomerular Filtration Rate 61 mL/min (>60); Est Glom Filt Rate - Afr Amer 73 mL/min (>60); Estimated Creatinine Clearance 69.37 ml/min; Glucose 95 mg/dL (74-106); Potassium 4.3 mmol/L (3.5-5.1); Sodium Level 139 mmol/L (136-145); Troponin-I HS (w/2H Reflex) < 3 pg/mL (3.0-78.0)
[2024-04-22 15:00] VITALS: BP 137/74; PULSE 74; RESP 23; O2SAT 96
[2024-04-22 15:20] VITALS: BP 137/74; PULSE 74; RESP 23; TEMP 36.8; O2SAT 96
[2024-04-22 16:17] LABS: Reflex Troponin-HS? (from REC) Y
== END 2024-04-22 15:25 | disposition home or self-care (01) ==
PROVIDERS: Emergency Provider Emergency Medicine; PCP Family Medicine; Referring Provider Emergency Medicine; Visit Provider Emergency Medicine
DX: R07.89 Other chest pain (principal); T47.1X5A Adverse effect of other antacids and anti-gastric-secretion drugs, initial encounter; K21.9 Gastro-esophageal reflux disease without esophagitis; Z79.899 Other long term (current) drug therapy
CPT/HCPCS: 71046; 80048; 84484; 85025; 93005; 99285

== ENCOUNTER 2024-05-25 16:47 | Emergency (ER) | payer OTHER, SELFPAY ==
[2024-05-25 16:48] VITALS: BP 152/74; PULSE 86; RESP 16; TEMP 36.6; O2SAT 96; BMI 28.4
--- NOTE | 2024-05-25 17:10 | EKG12_ITS ---
Test Reason : MEDICAL CLEARANCE Blood Pressure : */* mmHG Vent. Rate : 84 BPM Atrial Rate : 84 BPM P-R Int : 188 ms QRS Dur : 94 ms QT Int : 386 ms P-R-T Axes : 18 9 17 degrees QTcB Int : 456 ms Normal sinus rhythm Inferior infarct , age undetermined Abnormal ECG Confirmed by MILTON JAIME, NAM ([id number]), film and video editor BISI HERNANDEZ ([id number]) on 05/27/2024 6:33:35 AM Referred By: Confirmed By: NAM ROSE MD
--- NOTE | 2024-05-25 17:19 | EX.ED.VIS.PS ---
HPI HPI - Psych History of Present Illness Chief Complaint: Mental Health Narrative Narrative: Chief complaint and HPI: Paranoia. 59-year-old male with past medical history of schizoaffective disorder, bipolar disorder presents for evaluation of paranoia. History taken by patient as well as daughter over the phone and in the room. Patient states that he has not been taking his medication correctly. He states that he has been hearing voices but cannot make out what they are saying. He states that he is worried about the AI on his phone as he is concerned they are going to try and kill people. His daughter over the phone states that her father has had a flat affect today. He told her today that he has been having nightmares that the world is going to end. states that he has been very paranoid today and states that he does not trust her. She states that he is usually not like this. She states he is having difficulty concentrating. He denies any suicidal or homicidal ideations. Denies any visual hallucinations. Denies any fever, chills, shortness of breath, chest pain abdominal pain, nausea, vomiting, dysuria Review of systems: See HPI Medications: As listed on the chart Allergies: As listed on the chart PFSH: Per chart Vital signs: As listed on the chart. Reviewed. Physical exam: Gen: NAD Head: Normocephalic, atraumatic Eyes: No sclera icterus, conjunctiva clear, PERRL,EOMI ENT: Moist mucous membranes Neck: Trachea midline, No JVD CV: RRR, no murmurs, no peripheral edema Resp: Lungs CTA BL, no w/r/c GI: Abd soft, non-distended, non-tender, no r/r/g Musc: Full ROM, no deformity Skin: Warm, dry Neuro: Alert, grossly intact, sensation intact Psych: Paranoid, flat [facility] History Catatonia C. difficile colitis Cholecystectomy planned Thyroid disease Pneumonia High cholesterol Generalized headaches Gastrointestinal problem Gallstones Cataracts, bilateral Bone fracture Back problem Asthma Arthritis Alcohol abuse Bipolar 1 disorder Hypothyroid Home Medications ?Medication ?Instructions ?Recorded ?Last Taken ?Type liothyronine 5 mcg tablet 5 mcg PO BID 09/16/16 01/04/23 History propranolol 10 mg tablet 10 mg PO Q12H 09/16/16 01/04/23 History lamotrigine 100 mg disintegrating 100 mg PO QDAY 01/14/24 Unknown History tablet levothyroxine 100 mcg tablet 100 mcg PO QDAY disorder of 01/14/24 Unknown History thyroid gland alfuzosin 10 mg tablet,extended 10 mg PO DAILY 04/22/24 Unknown History release 24 hr lansoprazole 30 mg capsule,delayed 30 mg PO BID 04/22/24 Unknown History release tadalafil 5 mg tablet 5 mg PO DAILY 04/22/24 Unknown History paliperidone 3 mg tablet,extended 3 mg PO QHS 05/21/24 Unknown History release 24 hr trazodone 50 mg tablet 50 mg PO QHS PRN sleep #30 tabs 05/21/24 Unknown Rx cephalexin 500 mg capsule 500 mg PO Q6H 7 days #28 caps 05/25/24 Unknown Rx esomeprazole magnesium 40 mg 40 mg PO BID 05/25/24 Unknown History capsule,delayed release Allergy/AdvReac Type Severity Reaction Status Date / Time fluticasone (From Flonase) Allergy nose bleed Verified 05/25/24 16:48 latex Allergy Rash Verified 05/25/24 16:48 red dye Allergy Rash Verified 05/25/24 16:48 Sulfa (Sulfonamide Allergy Unknown Verified 05/25/24 16:48 Antibiotics) Family History Other Arthritis Cancer Colon cancer Diabetes Heart disease Hypertension Skin cancer Uterine cancer Surgical History History of appendectomy H/O wisdom tooth extraction Social History Smoking Status: Never smoker alcohol intake: never substance use type: does not use what type of physical activity do you participate in: none EXAM Physical Exam Const Vital Signs: 05/25/24 16:48 05/25/24 17:47 05/25/24 20:30 Temperature 97.8 F 97.9 F Temperature Source Oral Pulse Rate 86 88 Respiratory Rate 16 16 18 Blood Pressure 152/74 H 137/77 H Blood Pressure Mean 100 97 Pulse Ox 96 95 Oxygen Delivery Method Room Air Room Air MDM MDM MDM Narrative Medical decision making narrative: 59-year-old male with past medical history of schizoaffective disorder, bipolar disorder presents for evaluation of paranoia. Patient has a flat affect and admits to auditory hallucinations. He is paranoid. Differential diagnosis includes but is not limited to exacerbation of schizoaffective disorder, exacerbation of his bipolar disorder. Suspect less likely intoxication or electrolyte abnormality. Patient will be pink slipped. Patient would benefit from inpatient psychiatric placement. agrees. Laboratory workup ordered for clearance. CBC unremarkable without leukocytosis or anemia. BMP relatively unremarkable. UA positive for UTI. Patient denies any dysuria. Urine culture sent. Keflex ordered per EMRA recommendations given that patient had no recent antibiotics use and has a low risk for resistance. He will be prescribed a 7-day course. UA positive for benzos. Patient is medically cleared for inpatient psychiatric placement. Patient and were updated at the plan. Patient was evaluated by crisis and they agree. Patient was accepted to [facility]. Patient will be transferred. EKG: Interpreted by me/EM physician: EKG shows normal sinus rhythm without any acute ischemic changes. Heart rate 84. Impression: 1. Schizoaffective disorder exacerbation 2. Acute paranoia 3. UTI Lab Data Labs: Laboratory Results - last 24 hr 05/25/24 05/25/24 05/25/24 17:10 17:13 17:15 WBC 4.6 RBC 4.61 Hgb 13.2 Hct 40.0 MCV 86.8 MCH 28.6 MCHC 33.0 RDW Std Deviation 40.5 RDW Coeff of Monica 12.9 Plt Count 219 MPV 9.3 Immature Gran % (Auto) 0.400 Neut % (Auto) 66.2 Lymph % (Auto) 22.7 [place] % (Auto) 9.7 Eos % (Auto) 0.4 Baso % (Auto) 0.6 Absolute Neuts (auto) 3.1 Absolute Lymphs (auto) 1.05 Nucleated RBC % 0 Sodium 137 Potassium 3.4 L Chloride 106 Carbon Dioxide 24.0 Anion Gap 7 BUN 23 H Creatinine 0.86 Estim Creat Clear Calc 101.22 Est GFR (MDRD) Af Amer 118 Est GFR (MDRD) Non-Af 97 BUN/Creatinine Ratio 26.8 H Glucose 105 Calcium 9.2 Urine Color Yellow Urine Clarity Clear Urine pH 5.0 Ur Specific [place] 1.025 Urine Protein 15 H Urine Glucose (UA) Normal Urine Ketones 150 A* Urine Occult Blood 10 H Urine Nitrite Negative Urine Bilirubin Negative Urine Urobilinogen Normal Ur Leukocyte Esterase 25 H Urine RBC 0-5 SEEN Urine WBC 5-10 SEEN Ur Squamous Epith Cells 0-5 SEEN Urine Bacteria 1+ Urine Mucus 1+ Urine Opiates Screen NEGATIVE Urine Methadone Screen NEGATIVE Ur Barbiturates Screen NEGATIVE Ur Phencyclidine Scrn NEGATIVE Ur Amphetamines Screen NEGATIVE MDMA (Ecstasy) Screen NEGATIVE U Benzodiazepines Scrn POSITIVE H Urine Cocaine Screen NEGATIVE U Cannabinoids Screen NEGATIVE Ur Drug Screen Comment Ethyl Alcohol 5.0 Discharge Plan Triage Chief Complaint: Mental Health ED Provider: Juan Ramon Avalos Dx/Rx/DC Orders Prescriptions: New cephalexin 500 mg capsule 500 mg PO Q6H 7 Days Qty: 28 0RF No Action levothyroxine 100 mcg tablet 100 mcg PO QDAY lamotrigine 100 mg tablet,disintegrating 100 mg PO QDAY paliperidone 3 mg tablet extended release 24hr 3 mg PO QHS trazodone 50 mg tablet 50 mg PO QHS PRN (Reason: sleep) Qty: 30 2RF liothyronine 5 MCG tablet 5 mcg PO BID Patient Comments: thyroid propranolol 10 MG tablet 10 mg PO Q12H Patient Comments: tremors tadalafil 5 mg tablet 5 mg PO DAILY alfuzosin 10 mg tablet extended release 24 hr 10 mg PO DAILY lansoprazole 30 mg capsule,delayed release(DR/EC) 30 mg PO BID esomeprazole magnesium 40 mg capsule,delayed release(DR/EC) 40 mg PO BID Primary Care Provider: Ziyad Antunez Referrals: Ziyad Antunez MD [Primary Care Provider] - Print Language: Azeri Disposition Disposition: Psychiatric Hospital or Unit Discharge Location: [facility] Discharge Date/Time: 05/25/24 20:50
[2024-05-25 17:21] LABS: Absolute Lymphocyte Count 1.05 X10^3/uL (0.83-4.51); Absolute Neutrophil Count 3.1 X10^3/uL (2.0-7.7); Basophil# 0.03 X10^3/uL; Basophil% 0.6 % (0-1); Eosinophil# 0.02 X10^3/uL; Eosinophils% 0.4 % (0-5); Hemoglobin 13.2 g/dL (13.0-16.5); Lymphocyte # 1.05 X10^3/ul (0.83-4.51); Lymphocyte % 22.7 % (19-41); Mean Corpuscular Hgb 28.6 pg (27.0-32.0); Mean Corpuscular Volume 86.8 fL (80-94); Mean Platelet Vol. 9.3 fl (6.2-12.0); Monocyte# 0.45 X10^3/uL; Monocyte% 9.7 % (0-10); NRBC Flagged by Analyzer 0 % (0-5); Neutrophil # 3.05 X10^3/uL (2.7-7.7); Neutrophil % 66.2 % (47-70); Platelet Count 219 K/mm3 (150-450); RBC Distribution Width CV 12.9 % (11.6-14.6); RBC Distribution Width SD 40.5 fl (35.1-43.9); Red Blood Count 4.61 M/mm3 (4.6-6.2); White Blood Count 4.6 K/mm3 (4.4-11.0)
[2024-05-25 17:35] LABS: Anion Gap 7 (5-15); BUN 23 mg/dL (7-18); BUN/Creat Ratio 26.8 RATIO (10-20); Calcium,Total 9.2 mg/dL (8.5-10.1); Chloride 106 mmol/L (98-107); Creatinine, Serum 0.86 mg/dL (0.70-1.30); EST Glomerular Filtration Rate 97 mL/min (>60); Est Glom Filt Rate - Afr Amer 118 mL/min (>60); Estimated Creatinine Clearance 101.22 ml/min; Glucose 105 mg/dL (74-106); Potassium 3.4 mmol/L (3.5-5.1); Sodium Level 137 mmol/L (136-145)
[2024-05-25 17:41] LABS: Color, Urine Yellow (Yellow); Glucose, Dipstick Normal (Normal); Leukocyte Esterase-Dipstick 25 /ul (Negative); Nitrite-Dipstick Negative (Negative); Occult Blood-Urine 10 /ul (Negative); Protein-Dipstick 15 mg/dl (Negative); Specific Gravity, Urine 1.025 (1.002-1.030); Urine Bilirubin Dipstick Negative (Negative); Urine Clarity Clear (Clear); Urine Urobilinogen Normal (Normal)
[2024-05-25 17:47] VITALS: RESP 16
[2024-05-25 17:47] LABS: Amphetamine Urine VISTA NEGATIVE (<1000 ng/mL); Barbiturate Urine VISTA NEGATIVE (< 200 ng/mL); Benzodiazepine Urine VISTA POSITIVE (< 200 ng/mL); Cocaine Urine VISTA NEGATIVE (< 300 ng/mL); Ecstacy Urine VISTA NEGATIVE (< 500 ng/mL); Methadone Urine VISTA NEGATIVE (< 300 ng/mL); PCP Urine VISTA NEGATIVE (< 25 ng/mL); THC Urine VISTA NEGATIVE (< 50 ng/mL); Vista UDS pH Range 5
[2024-05-25 17:57] LABS: Ketone-Dipstick 150 mg/dl (Negative)
[2024-05-25 18:02] LABS: Red Blood Cells-Urine 0-5 SEEN /hpf (0-5); Squamous Epithelial Cells - UA 0-5 SEEN /hpf (0-5); White Blood Cells 5-10 SEEN /hpf (0-5)
[2024-05-25 18:03] LABS: Bacteria 1+ /hpf (None Seen); Mucous, Urine 1+ /hpf (<or=2+)
[2024-05-25] MEDS: Cephalexin 250 MG Capsule 500 MG PO (18:52)
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
--- NOTE | 2024-05-25 19:40 | CM.ED ---
Social Work Patients requesting [facility] as first choice for inpatient treatment. SW called [facility], no male beds open this evening. Referral sent to [facility]. and patient notified of same. Plan: Inpatient psychiatric hospitalization pending acceptance. Zuleyka Gabriel, DIETARY DIRECTOR, SALES OUTFITTER
--- NOTE | 2024-05-25 19:55 | CM.ED ---
Social Work Patient accepted at [facility], going to [facility]. Accepting physician, Dr. Suarez. Nurse to nurse number [phone]. All information given to community mental health social worker. [place] slip faxed. Patient and notified of [facility] accepting patient. Zuleyka Gabriel, SCALP SPECIALIST, MERCHANDISE MANAGER
--- NOTE | 2024-05-25 20:01 | ED.RN ---
Xavier called, spoke with Kim from [facility]. She stated eta is 45-60 min ().
[2024-05-25 20:30] VITALS: BP 137/77; PULSE 88; RESP 18; TEMP 36.6; O2SAT 95
== END 2024-05-25 20:50 ==
LOC: ED 17:19
PROVIDERS: Emergency Provider Surgery; PCP Family Medicine; Visit Provider Surgery
DX: F25.9 Schizoaffective disorder, unspecified (principal); F31.9 Bipolar disorder, unspecified; N39.0 Urinary tract infection, site not specified; E03.9 Hypothyroidism, unspecified; Z79.899 Other long term (current) drug therapy
CPT/HCPCS: 80048; 80307; 81001; 82077; 85025; 87086; 93005; 99285

== ENCOUNTER → 2024-06-18 | Outpatient (CLI) | payer OTHER, SELFPAY | END | disposition home or self-care (01) | LOC: LABSPEC 13:13 | PROVIDERS: PCP Family Medicine; Referring Provider Nurse Practitioner; Visit Provider Nurse Practitioner | DX: R30.0 Dysuria (principal) | CPT/HCPCS: 87086 ==

== ENCOUNTER 2024-11-27 11:01 | Emergency (ER) | payer OTHER, SELFPAY ==
[2024-11-27 11:02] VITALS: BP 122/79; PULSE 95; RESP 16; TEMP 36.6; O2SAT 99; BMI 27.1
[2024-11-27 11:35] VITALS: BP 120/64; PULSE 77; RESP 15; O2SAT 98
--- NOTE | 2024-11-27 11:47 | EDS_ITS ---
HPI <BERNY Smith - Last Filed: 11/27/24 19:09> HPI - Psych History of Present Illness Chief Complaint: Mental Health Narrative Narrative: 59-year-old male with PMH of schizoaffective disorder brought in by EMS for evaluation. He lives with his Christina. She states he has had schizoaffective disorder for over 20 years. Over the last week he has been more anxious, paranoid, and angry at her for trying to help him manage his medications because he is not taking them properly. He is saying that he is trying to take some new sleeping pill but either misses it or it is not working. He denies suicidal or homicidal ideation. He denies hallucinations. His says that he has not been doing well since he quit his job in January 2024 because he does not have a routine. Family has tried to help him become employed again but he is resistant. He sees Dr. Hunter Baumann at [facility] and a counselor but missed his last counseling appointment. She states that he has been admitted 3 times in the last year for inpatient mental health, most recently in May 2024. PFSH <BERNY Smith - Last Filed: 11/27/24 19:09> [facility] Medical History Catatonia C. difficile colitis Cholecystectomy planned Thyroid disease Pneumonia High cholesterol Generalized headaches Gastrointestinal problem Gallstones Cataracts, bilateral Bone fracture Back problem Asthma Arthritis Alcohol abuse Bipolar 1 disorder Hypothyroid Home Medications ?Medication ?Instructions ?Recorded ?Last Taken ?Type alfuzosin 10 mg tablet,extended 10 mg PO DAILY 4 Unknown History release 24 hr paliperidone palmitate 156 mg/mL 156 mg IM QMONTH 28 d ays #1 mL 08/26/24 Unknown Rx intramuscular syringe (Invega Sustenna) olanzapine 5 mg tablet 5 mg PO QHS #30 tabs 5 Unknown Rx levothyroxine 125 mcg tablet 125 mcg PO DAILY disorder of 11/27/24 Unknown History thyroid gland omeprazole 40 mg capsule,delayed 40 mg PO BID 11/27/24 Unknown History release tamsulosin 0.4 mg capsule 0.4 mg PO QHS 11/27/24 Unkno wn History zolpidem 5 mg tablet 5 mg PO QHS PRN PRN insomnia 11/27/24 Unknown History Allergy/AdvReac Type Severity Reaction Status Date / Time fluticasone (From Flonase) Allergy nose bleed Verified 11/27/24 20:07 latex Allergy Rash Verified 11/27/24 20:07 red dye Allergy Rash Verified 11/27/24 20:07 Sulfa (Sulfonamide Allergy Unknown Verified 11/27/24 20:07 Antibiotics) lorazepam (From Ativan) AdvReac Mild paranoid Verified 11/27/24 20:07 Family History Other Arthritis Cancer Colon cancer Diabetes Heart disease Hypertension Skin cancer Uterine cancer Surgical History History of appendectomy H/O wisdom tooth extraction Social History Smoking Status: Never smoker alcohol intake: never substance use type: does not use what type of physical activity do you participate in: none ROS <BERNY Smith - Last Filed: 11/27/24 19:09> ROS ED ROS Narrative Constitutional: Negative for fever, chills, malaise. CVS: Negative for chest pain Respiratory: Negative for shortness of breath. GI: Negative for abdominal pain, nausea, vomiting. EXAM <BERNY Smith - Last Filed: 11/27/24 19:09> Physical Exam Narrative Exam Narrative: CONST: Patient sitting in no acute distress. EYES: Normal inspection. NECK: Normal inspection. RESP: No respiratory distress, CTAB. CVS: Regular rate and rhythm, no murmur, no gallop. SKIN: Color normal, no rash, warm, dry, intact. EXTREMITIES: Normal appearance, no pedal edema. NEURO: Alert and oriented, rambles when asked historical questions. PSYCH: Normal affect. Const Vital Signs: 11/27/24 11:02 11/27/24 11:35 11/27/24 18:50 Temperature 97.9 F 98.9 F Temperature Source Oral Pulse Rate 95 77 83 Respiratory Rate 16 15 16 Blood Pressure 122/79 H 120/64 138/77 H Blood Pressure Mean 93 82 97 Pulse Ox 99 98 97 Oxygen Delivery Method Room Air <Manoj Fritz MD - Last Filed: 11/29/24 00:25> Physical Exam Const Vital Signs: 11/27/24 11:02 11/27/24 11:35 11/27/24 18:50 Temperature 97.9 F 98.9 F Temperature Source Oral Pulse Rate 95 77 83 Respiratory Rate 16 15 16 Blood Pressure 122/79 H 120/64 138/77 H Blood Pressure Mean 93 82 97 Pulse Ox 99 98 97 Oxygen Delivery Method Room Air MDM <BERNY Smith - Last Filed: 11/27/24 19:09> [facility] MDM Narrative Medical decision making narrative: History gathered from: Patient and his Differential includes but not limited to schizoaffective disorder, electrolyte derangement, infection 59-year-old male with schizoaffective disorder and has been noncompliant with his medications and has increasing agitation and paranoia over the last week. He appears well and nontoxic. Vital stable. Overall his exam is benign. He is more calm and cooperative here after receiving IM Versed 5 mg from EMS. CBC and CMP are unremarkable. Urine tox positive for benzodiazepines consistent with Versed administration. Alcohol is negative. Patient is medically cleared for psychiatric treatment. After discussion with patient and his spouse and evaluation by social work he needs placed and is pink slipped. The director of social media marketing is trying to place him at [facility] and they are requesting a CT brain, chest x-ray, EKG and COVID test. All this testing is unremarkable. EKG is norm al sinus rhythm 83 bpm. There are no acute ischemic changes. He is again medically cleared for placement. Lab Data Attestation: I reviewed the patient's lab results. Labs: Laboratory Results - last 24 hr 11/27/24 11/27/24 12:27 12:35 WBC 6.2 RBC 5.10 Hgb 14.8 Hct 43.8 MCV 85.9 MCH 29.0 MCHC 33.8 RDW Std Deviation 39.2 RDW Coeff of Monica 12.6 Plt Count 280 MPV 9.2 Immature Gran % (Auto) 0.300 Neut % (Auto) 65.4 Lymph % (Auto) 24.6 [place] % (Auto) 8.9 Eos % (Auto) 0.3 Baso % (Auto) 0.5 Absolute Neuts (auto) 4.1 Absolute Lymphs (auto) 1.52 Nucleated RBC % 0 Sodium 140 Potassium 3.8 Chloride 104 Carbon Dioxide 22.7 Anion Gap 13 BUN 15 Creatinine 0.84 Estim Creat Clear Calc 94.69 Est GFR (MDRD) Non-Af 101 BUN/Creatinine Ratio 17.6 Glucose 92 Calcium 9.5 Total Bilirubin 0.59 AST 25 ALT 23 Alkaline Phosphatase 78 Total Protein 7.7 Albumin 4.4 Globulin 3.2 Albumin/Globulin Ratio 1.4 Urine Opiates Screen NEGATIVE U Buprenorphine Qual NEGATIVE Ur Oxycodone Screen NEGATIVE Urine Methadone Screen NEGATIVE Urine Fentanyl Screen NEGATIVE Ur Barbiturates Screen NEGATIVE Ur Phencyclidine Scrn NEGATIVE Ur Amphetamines Screen NEGATIVE U Benzodiazepines Scrn PRESUMPTIVE POSITIVE Urine Cocaine Screen NEGATIVE U Cannabinoids Screen NEGATIVE Ethyl Alcohol < 10.1 Radiography Diagnostic Testing: Clinical Impression(s) from Imaging Studies Chest X-Ray 11/27/24 14:44 IMPRESSION: No acute process noted. [facility] Brain [facility] 11/27/24 15:00 IMPRESSION: No acute process detected. Reading [facility] <Manoj Fritz MD - Last Filed: 11/29/24 00:25> [facility] Lab Data Labs: Laboratory Results - last 24 hr 11/27/24 11/27/24 12:27 12:35 WBC 6.2 RBC 5.10 Hgb 14.8 Hct 43.8 MCV 85.9 MCH 29.0 MCHC 33.8 RDW Std Deviation 39.2 RDW Coeff of Monica 12.6 Plt Count 280 MPV 9.2 Immature Gran % (Auto) 0.300 Neut % (Auto) 65.4 Lymph % (Auto) 24.6 [place] % (Auto) 8.9 Eos % (Auto) 0.3 Baso % (Auto) 0.5 Absolute Neuts (auto) 4.1 Absolute Lymphs (auto) 1.52 Nucleated RBC % 0 Sodium 140 Potassium 3.8 Chloride 104 Carbon Dioxide 22.7 Anion Gap 13 BUN 15 Creatinine 0.84 Estim Creat Clear Calc 94.69 Est GFR (MDRD) Non-Af 101 BUN/Creatinine Ratio 17.6 Glucose 92 Calcium 9.5 Total Bilirubin 0.59 AST 25 ALT 23 Alkaline Phosphatase 78 Total Protein 7.7 Albumin 4.4 Globulin 3.2 Albumin/Globulin Ratio 1.4 Urine Opiates Screen NEGATIVE U Buprenorphine Qual NEGATIVE Ur Oxycodone Screen NEGATIVE Urine Methadone Screen NEGATIVE Urine Fentanyl Screen NEGATIVE Ur Barbiturates Screen NEGATIVE Ur Phencyclidine Scrn NEGATIVE Ur Amphetamines Screen NEGATIVE U Benzodiazepines Scrn PRESUMPTIVE POSITIVE Urine Cocaine Screen NEGATIVE U Cannabinoids Screen NEGATIVE Ethyl Alcohol < 10.1 Radiography Chest X-Ray - ED: Read by ED Physician, Read by Radiologist and No Infiltrates Diagnostic Testing: Clinical Impression(s) from Imaging Studies Chest X-Ray 11/27/24 14:44 IMPRESSION: No acute process noted. Reading [facility] 11/27/24 15:00 IMPRESSION: No acute process detected. Reading [facility] Treatment and Re-Evaluation Narrative: Dr. Fritz: I have personally performed a face to face assessment of the patient and have reviewed the MONSTER Note. I performed a substantive portion of the visit including all aspects of the following. My nesbitt findings include: History is schizoaffective disorder. Medication noncompliance according to . Received Versed from EMS for anxiety and mild psychosis. Exam is afebrile. Vital signs noted. Nontoxic-appearing. Cardiovascular examination regular rate and rhythm. Lungs clear to auscultation bilaterally. Abdomen soft and nontender with normoactive bowel sounds. Currently calm, cooperative. Medical Decision Making: Check labs. Discussed with social work/case management. It was felt that he requires admission for stabilization. Being considered as geriatric psychiatric according to [facility] where he is trying to be placed. They requested CT of the brain, COVID swab, and chest x- ray. Chest x-ray interpreted by myself independently shows no evidence of acute process. I reviewed the radiology report which confirms my independent interpretation. I reviewed the radiology report of the CT of the brain and is negative for acute process as well. disposition is transfer. Patient is in stable condition. Other additions or changes: [None] Discharge Plan Triage Chief Complaint: Mental Health ED Midlevel Provider: Alexia Chase ED Provider: Manoj Fritz Dx/Rx/DC Orders Clinical Impression: Schizoaffective disorder, Noncompliance with medications, Acute paranoia Prescriptions: No Action Invega Sustenna 156 mg/mL syringe 156 mg IM QMONTH 28 Days Qty: 1 4RF alfuzosin 10 mg tablet extended release 24 hr 10 mg PO DAILY levothyroxine 125 mcg tablet 125 mcg PO DAILY omeprazole 40 mg capsule,delayed release(DR/EC) 40 mg PO BID tamsulosin 0.4 mg capsule 0.4 mg PO QHS zolpidem 5 mg tablet 5 mg PO QHS PRN PRN (Reason: insomnia) olanzapine 5 mg tablet 5 mg PO QHS Qty: 30 1RF Primary Care Provider: Ziyad Antunez Referrals: Ziyad Antunez MD [Primary Care Provider] - Print Language: Ghanaian Disposition Disposition: Psychiatric Hospital or Unit Discharge Location: [facility] Discharge Date/Time: 11/27/24 21:22
[2024-11-27 12:42] LABS: Absolute Lymphocyte Count 1.52 X10^3/uL (0.83-4.51); Absolute Neutrophil Count 4.1 X10^3/uL (2.0-7.7); Basophil# 0.03 X10^3/uL; Basophil% 0.5 % (0-1); Eosinophil# 0.02 X10^3/uL; Eosinophils% 0.3 % (0-5); Hematocrit 43.8 % (40-54); Hemoglobin 14.8 g/dL (13.0-16.5); Lymphocyte # 1.52 X10^3/ul (0.83-4.51); Lymphocyte % 24.6 % (19-41); Mean Corp Hgb Conc 33.8 g/dL (32-36); Mean Corpuscular Volume 85.9 fL (80-94); Mean Platelet Vol. 9.2 fl (6.2-12.0); Monocyte# 0.55 X10^3/uL; Monocyte% 8.9 % (0-10); NRBC Flagged by Analyzer 0 % (0-5); Neutrophil # 4.05 X10^3/uL (2.7-7.7); Neutrophil % 65.4 % (47-70); Platelet Count 280 K/mm3 (150-450); RBC Distribution Width CV 12.6 % (11.6-14.6); RBC Distribution Width SD 39.2 fl (35.1-43.9); White Blood Count 6.2 K/mm3 (4.4-11.0)
[2024-11-27 13:20] LABS: Amphetamine Urine NEGATIVE (<1000 ng/mL); Barbiturate Urine NEGATIVE (< 200 ng/mL); Benzodiazepine Urine PRESUMPTIVE POSITIVE (< 200 ng/mL); Buprenorphine Urine NEGATIVE (< 200 ng/mL); Cocaine Urine NEGATIVE (< 300 ng/mL); Fentanyl, Urine NEGATIVE; Methadone Urine NEGATIVE (< 300 ng/mL); Opiates Urine NEGATIVE (< 300 ng/mL); Oxycodone, Urine NEGATIVE (< 100 ng/mL); PCP Urine NEGATIVE (< 25 ng/mL); THC Urine NEGATIVE (< 50 ng/mL)
[2024-11-27 13:21] LABS: Alcohol, Blood (Medical)-Serum < 10.1 mg/dL (<=10.0)
[2024-11-27 13:22] LABS: ALB/GLOB Ratio 1.4 RATIO (0.9-2.4); AST(SGOT) 25 U/L (<=37); Alanine Aminotransfer ALT/SGPT 23 U/L (<=46); Albumin, Serum 4.4 g/dL (3.5-5.0); Alkaline Phosphatase 78 U/L (40-129); Anion Gap 13 (5-15); BUN 15 mg/dL (4-19); BUN/Creat Ratio 17.6 RATIO (10-20); Calcium,Total 9.5 mg/dL (7.6-11.0); Carbon Dioxide 22.7 mmol/L (21.0-32.0); Chloride 104 mmol/L (98-108); Creatinine, Serum 0.84 mg/dL (0.70-1.20); EST Glomerular Filtration Rate 101 (>60); Estimated Creatinine Clearance 94.69 ml/min (50-250); Globulin 3.2 g/dL (2.2-4.2); Glucose 92 mg/dL (70-99); Potassium 3.8 mmol/L (3.3-5.1); Protein, Total 7.7 g/dL (5.9-8.4); Sodium Level 140 mmol/L (133-145); Total Bilirubin 0.59 mg/dL (0.00-1.30)
--- NOTE | 2024-11-27 13:49 | CM.ED ---
Social Work Psychiatric Assessment Reason for consult: mental health Informant(s): patient, medical records, patient's (Christina) Chief Complaint: Patient presented to [facility] ED today with patient's , Christina, for increased paranoia. Per EMS, patient presented with increased paranoia and anxiety. Patient was observed by SW sitting comfortably in bed, but patient appeared to be responding to internal stimuli. Patient refused to let patient's leave the room and patient looked to patient's often for answers. Patient's consistently redirected patient's attention to this SW for patient to answer. Patient would smile and then would answer many of the questions. Per patient's , patient has been out of work and out of a routine since January 2024. Patient's stated reported patient's paranoia has been increasing and patient has not been sleeping well. Patient's mental health has reportedly been a struggle for 20 years, though patient has recently been struggling more often with increasing paranoia and lack of sleep. Patient denies hallucinations and delusions. Patient's endorses racing thoughts and what appears to be patient responding to internal stimuli. Patient reports appetite to be decent, though patient's stated it could be better. Patient denies suicidal and homicidal thoughts, plans, intent, or attempts. Marital/Social History/Sexual Orientation/Gender Identity: patient is a 59 year old male. Later this year, patient will be to patient's , Christina, for 36 years. Living Situation: patient lives with patient's , Christina. Support/Resources: patient lists patient's , patient's daughter, and a friend, Osito, as supports. History: none Education and Employment History: patient has a degree in [employer] and patient's states patient graduated top of patient's classes in both high school and college. Patient reportedly has no job currently, though patient states the most recent employment was for a [employer]. Mental Health Treatment/History: patient currently sees Dr. Baumann at [facility] and [facility] at [facility]. Patient currently diagnosed with bipolar and schizoaffective disorders. Patient reportedly has history of 2 inpatient psychiatric placements within the last year with the latest being in May 2024. Patient reportedly has paranoia and this was observed by this SW as well. Patient reportedly has no DD history. Triggers/Stressors to mental health: patient states life stress to be recently stressful, but patient refused to go into detail. Patient's reported patient has had difficulty with being paranoid about everything, including patient's . Patient reportedly quit patient's job in January 2024 which has added to patient's stress level. Coping Skills: patient listed prayer, aidan, and visiting family to be coping skills. History of Abuse (physical/sexual/verbal/emotional): patient denied. Substance Abuse Current/Historical: patient denied. Risk to Self/Others: ? Suicidal (thought/plan/intent/attempt): patient denied. ? Access to Lethal Means: patient denied. ? Homicidal (thought/plan/intent/attempt): patient denied. ? History of Violence (self/others/objects): patient denied. Mental Status Exam: ??? Orientation: patient could not answer orientation questions. ??? Memory: poor Appearance/General Behavior: disheveled, non-directable by SW (more easily directable by ) Mood/Affect: flat, smiling at inappropriate times. Communication Pattern: does not initiate, does not answer at times Thought Process: paranoid General Intellectual Functioning: below average, but not connected to Board of DD (per ) Judgment: poor Insight: poor Assessment Summary: due to patient's reported and witnessed increased paranoia, responses to internal stimuli, report of racing thoughts, inability to care for self properly, poor insight into current situation, and patient's 's unwillingness to safety plan, patient would benefit from inpatient treatment for stabilization and evaluation of medication. Spoke with doctor who agrees. Plan: inpatient mental health treatment. Lee Ann Alexis, MEETING FACILITATOR, ENGAGEMENT EXECUTIVE
--- NOTE | 2024-11-27 14:44 | RAD_ITS ---
PROCEDURE: CHEST PA AND LATERAL 11/27/2024 REASON FOR EXAM: WEAKNESS TECHNIQUE: CHEST PA AND LATERAL COMPARISON: Chest radiograph from April 22, 2024 FINDINGS: Hardware: None. Heart: Normal size Mediastinum: Normal contour Lungs: Clear Bones: No aggressive bone lesion Cholecystectomy clips in the right upper quadrant of the abdomen. RAD/Chest PA and Lateral IMPRESSION: No acute process noted. Reading Location: [facility]
--- NOTE | 2024-11-27 14:56 | EKG12_ITS ---
Test Reason : Blood Pressure : */* mmHG Vent. Rate : 83 BPM Atrial Rate : 83 BPM P-R Int : 174 ms QRS Dur : 96 ms QT Int : 374 ms P-R-T Axes : 31 27 33 degrees QTcB Int : 439 ms Normal sinus rhythm Poor R wave progression Borderline Confirmed by Damaso Leigh ([id number]), publications editor TORRES CADET ([id number]) on 12/01/2024 11:38:53 AM Referred By: Confirmed By: Damaso Leigh
--- NOTE | 2024-11-27 15:00 | CT_ITS ---
PROCEDURE: BRAIN/HEAD WITHOUT CONTRAST 11/27/2024 REASON FOR EXAM: AMS TECHNIQUE: BRAIN/HEAD WITHOUT CONTRAST Coronal and Sagittal reconstruction series were provided. One or more dose reduction techniques were used (e.g., Automated exposure control, adjustment of the mA and/or kV according to patient size, use of iterative reconstruction technique. RADIATION DOSE SUMMARY: CTDlvol: 47.06 mGy DLP: 296.20 mGycm COMPARISON: 996.2 FINDINGS: Brain: No intra-axial or extra-axial hemorrhage, mass, mass effect or midline shift. Ventricles and sulci are mildly enlarged. Mild small-vessel ischemic disease. Sinuses/Mastoids: Predominantly clear Bones: No acute process CT/Brain/Head without Contrast IMPRESSION: No acute process detected. Reading Location[facility]
--- NOTE | 2024-11-27 16:36 | PCA ---
MAN SENT EVERYTHING OVER TO [facility]. WAITING TO HEAR BACK.
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
--- NOTE | 2024-11-27 18:07 | PCA ---
[place] [id number]
--- NOTE | 2024-11-27 18:12 | CM.ED ---
Social [facility] 1430: [facility]: [phone][facility] asking if patient was eligible for rajat-psych due to patient's age. Staff there stated not knowing if age started at 55+ or 60+ but was willing to take patient's information. Staff at [facility] needed additional testing which was asked for by this SW. Patient's referral packet faxed by 1545 once results were in. 1630: SW called [facility] to get an update; staff were still reviewing the documents prior to sending to the physician. 1715: [facility] staff called to see if patient's EKG was signed off on by a doctor due to a discrepancy noted. SW checked with Alexia ARRIETA who made a slight change to documentation. SW called [facility] back to confirm EKG was signed off on. 1800: Alexandria from [facility] called SW back stating ability to accept patient. Accepting physician: Dr. Valente Palacio N2N: [phone] [address] Doctor, RN, and screening unit registered nurse were updated. Patient was sleeping, so patient's was updated as well. Plan: [facility], pending transport. Lee Ann Alexis, VIBRATOR OPERATOR, [employer]
[2024-11-27 18:50] VITALS: BP 138/77; PULSE 83; RESP 16; TEMP 37.2; O2SAT 97
== END 2024-11-27 21:22 ==
PROVIDERS: Physician Assistant; Emergency Provider Emergency Medicine; PCP Family Medicine; Visit Provider Emergency Medicine
DX: F25.9 Schizoaffective disorder, unspecified (principal); F22 Delusional disorders; E78.00 Pure hypercholesterolemia, unspecified; Z91.148 Patient's other noncompliance with medication regimen for other reason; Z90.49 Acquired absence of other specified parts of digestive tract; E03.9 Hypothyroidism, unspecified; Z79.899 Other long term (current) drug therapy
CPT/HCPCS: 70450; 71046; 80053; 80307; 82077; 85025; 87811; 93005; 99285

== ENCOUNTER 2024-12-30 08:00 | Outpatient (RCR) | payer OTHER, SELFPAY ==
--- NOTE | 2024-12-30 10:10 | BH.SGPN.GN ---
Behaviors/Verbalizations/Mental Status: [] Eye contact is good. Motor activity is appropriate. Appearance is casual. Speech is Appropriate. Mood is anxious. Affect is congruent. Thoughts are linear and logical. No evidence of psychosis. Client Response/Progress/Benefit: [] Pt responded well to session AEB actively participating throughout group. Pt was attentive throughout group activity discussing famous individuals and how they overcame failure to be successful. Pt helped group define fear of failure as well as how it can impact mental health and relationships. Participated in experiential activity and worked with group members to problem solve. Appeared to benefit from increased knowledge of what causes fear of failure and how it impacts people. Will continue IOP tx to prevent decompensation, improve healthy coping skills, and challenge negative thoughts.
--- NOTE | 2024-12-30 11:10 | BH.SGPN.GN ---
Behaviors/Verbalizations/Mental Status: []Pt alert and oriented, neatly dressed and groomed. Eye contact good. Motor activity appropriate. Speech within normal limits. Affect congruent, mood anxious and confused. Thoughts linear, logical, no signs of hallucinations or delusions. Client Response/Progress/Benefit: [] Pt responded well to session, engaged in the experiential activity and attentive throughout group processing. Pt reported fear of failure has kept Pt from trying to get a job. Pt completed fear of failure worksheet and was able to identify thoughts and behaviors that reinforce personal fear of failure including not asking for help and being too dependent on others. Pt participated in small group discussion regarding strategies to overcome fear of failure. Identified wanting to work on utilizing dismissing negative self-talk. Appeared to benefit from increased knowledge of strategies to combat fear of failure and gaining self-awareness. Pt will continue IOP tx to prevent decompensation and gain healthy coping skills. Narrative Note: []
--- NOTE | 2025-01-01 07:52 | PCM.BH.PSYEV ---
Intake Vital Signs 12/22/24 14:32 01/01/25 07:53 01/01/25 12:24 Height 5 ft 9 in 5 ft 9 in 5 ft 8 in Weight: 191 lb 186 lb BMI 28.2 BP 105/68 139/86 H Blood Pressure Location Lt brachial Position Sitting Respiration 16 Pulse 90 65 Pulse Source Monitor Intake Visit Reasons: iop intake Allergies fluticasone (From Flonase) Allergy (Verified 12/22/24 14:34) nose bleed latex Allergy (Verified 12/22/24 14:34) Rash red dye Allergy (Verified 12/22/24 14:34) Rash Sulfa (Sulfonamide Antibiotics) Allergy (Verified 12/22/24 14:34) Unknown benztropine Adverse Reaction (Severe, Verified 01/01/25 09:44) vision changes lorazepam (From Ativan) Adverse Reaction (Mild, Verified 12/22/24 14:34) paranoid Medications ?Medication ?Instructions ?Recorded ?Confirmed ?Type olanzapine 5 mg tablet 5 mg PO QHS #30 tabs 11/26/24 12/22/24 Rx omeprazole 40 mg capsule,delayed 40 mg PO BID 11/27/24 01/01/25 History release levothyroxine 125 mcg tablet 100 mcg PO DAILY disorder of 12/10/24 01/01/25 History thyroid gland paliperidone 3 mg tablet,extended 3 mg PO QAM #30 tabs 12/21/24 01/01/25 Rx release 24 hr (Invega) paliperidone palmitate 234 mg/1.5 234 mg (1.5 mL) IM QMONTH 28 days 12/21/24 01/01/25 Rx mL intramuscular syringe #1.5 mL lamotrigine 150 mg tablet 150 mg PO QDAY #30 tabs 12/22/24 01/01/25 Rx zolpidem 10 mg tablet 10 mg PO QHS PRN insomnia #30 tabs 12/22/24 01/01/25 Rx alfuzosin 10 mg tablet,extended 10 mg PO 01/01/25 History release 24 hr meclizine 25 mg tablet 25 mg PO TID PRN dizziness 01/01/25 01/01/25 History PFSH () Medical History Catatonia C. difficile colitis Cholecystectomy planned Thyroid disease Pneumonia High cholesterol Generalized headaches Gastrointestinal problem Gallstones Cataracts, bilateral Bone fracture Back problem Asthma Arthritis Alcohol abuse Bipolar 1 disorder Hypothyroid Surgical History History of appendectomy H/O wisdom tooth extraction Family History Other Arthritis Cancer Colon cancer Diabetes Heart disease Hypertension Skin cancer Uterine cancer Social History Smoking Status: Never smoker alcohol intake: never substance use type: does not use what type of physical activity do you participate in: none HPI () History of Present Illness History provided by: patient HPI: Conner Serrano is a 59 year old male who presents today for IOP intake evaluation. Patient reports that he has been in a lot of pain in the recent past. Patient reports that he feels like his lamotrigine is causing tremor, and previously did better when he split the dosing in the past. Tremor does appear largely similar to previous evaluations. Still having a hard time sleeping even with the use of increased dose of zolpidem at 10 mg. Will be laying in bed for hours before actually falling asleep. Does have some significant pain in neck and back which has been worsening symptoms of sleep. Has felt some dizziness in regards to neck pain. Has physically received his next dose of Invega at the increased dose of 234, but has not actually gotten the injection. Denies significant depression right now. Does admit to intermittent anxiety. Plans to go to marriage counseling with in the near future. Plans to start his alfuzosin in the near future which has helped with sleep in the past. [facility] AND UPDATED APPROPRIATE Developmental History Developmental History: Siblings - admits to having an older brother, and younger sister Born/Raised - [place], [place] Education - [employer], degree in [email or web address] Living Situation - lives with Legal Issues - denies Employment - unemployeed, difficulty with sustaining meaningful work since leaving job last year Psychiatric History Previous psychiatric treatment history: Yes (several admissions in recent past; previously at [facility] ~1999) Previous psychiatric diagnoses: Schizoaffective Disorder, Bipolar Type Previous psychiatric treatment programs: none Family Psychiatric History: Paternal grandfather - committed suicide Paternal uncle - committed suicide Suicidal Ideation Current: No Past: Yes History of suicide attempt: No Suicide Risk Assessment Suicide risk factors: depression, psychosis, isolation and perceived burden to family Suicide protective factors: future looking, responsibility for family and family support Self Injurious Behavior Current: none Past: none Medication Trials Previous psychiatric medication trials: lithium paliperidone Current/Previous Provider Psychiatrist: Myself Other Substance Use History Nicotine- denies Alcohol- denies Marijuana- denies Stimulants- denies Opioids- denies Other- denies Review of systems () Constitutional Denies: fever(s), chills, change in weight or fatigue Eyes Denies: change in vision or blurry vision Ears, Nose, Mouth, Throat Denies: throat pain, neck pain or change in hearing Cardiovascular Denies: chest pain, palpitations or dyspnea Respiratory Denies: dyspnea, cough or wheezing Gastrointestinal Denies: abdominal pain, nausea, vomiting, diarrhea or constipation Genitourinary Denies: dysuria or urinary frequency Musculoskeletal Denies: back pain, neck pain, joint pain or muscle weakness Integumentary/Breast Denies: rash or new lesions Neurological Denies: headache(s), dizziness or confusion Endocrine Denies: fatigue or excessive sweating Hematologic/Lymphatic Denies: easy bruising or easy bleeding Allergic/Immunologic Denies: wheezing Exam () Mental Status Exam- Psych () Appearance unkempt Attitude cooperative Activity/Motor Behavior MSE activity/motor behavior finding no adventitious movements Speech regular rate, regular volume, regular prosody and other (somewhat verbose) Mood OK Affect congruent Thought Process linear, logical and coherent Thought Content no delusions and no hallucinations Suicidal Ideation none Homicidal Ideation none Attention intact Concentration intact Sensorium/Orientation awake, alert and oriented x3 Memory/Cognition other (appropriate for stated age) Insight fair Judgement good Exam () Constitutional Documenting provider has reviewed patient's vital signs: yes Common normals: no acute distress, patient oriented x3 and alert General appearance: well developed Neuro Common normals: patient oriented x3 Sensorium/orientation: alert Gait (neuro): normal gait Assessment & Plan () Assessment & Plan (1) Schizoaffective disorder: Plan: - will increase paliperidone to 234 mg at next injection time; will discontinue oral overlap at that time - reports to feeling like he did better with splitting lamotrigine dosing time; will do so to see if feeling less tremulous - The patient will start the IOP in [facility] at [facility] as the structure, support, education and grou therapy with ideally prevent worsening of patient's symptoms whihc could result in admission to higher level of care such as [facility] or psychiatric admission. I have reasonable expectation that the patient will make timely and significant improvement in the presenting acute symptoms as a result of the program and eventually be discharged to a lower level of care. (2) Catatonia: Plan: - History of; no evidence at this time Charges/Coding Multi Select Codes Behavior Health Behavior Health EST Pt E/M: 13337 Est Pt Level IV
--- NOTE | 2025-01-01 09:05 | BH.SGPN.GN ---
Behaviors/Verbalizations/Mental Status: [] Pt alert and oriented, neatly dressed and groomed. Eye contact good. Motor activity appropriate. Speech within normal limits. Affect congruent, mood anxious. Thoughts linear, logical, no signs of hallucinations or delusions. Reviewed pt?s symptom tracker, no risk for suicidal ideation, plan, or intent 01/01/25. Client Response/Progress/Benefit: []Pt was an active participant in group discussions. Attentive. Able to identify mental health wins including ?I did lots of cleaning and organizing and I like coming here, I like learning.? Pt's stressor today is ?some issues with boundaries in my family.? The group offered pt encouragement and emotional support which pt reported was helpful. Pt is feeling relaxed and tired.? this morning. Pt receptive to feedback from peers. Benefited from group support, encouragement, and feedback. Progress noted. Will continue IOP tx to promote mood stability, reduce negative thinking, and increase self-confidence. Narrative Note: []
--- NOTE | 2025-01-01 09:43 | BH.DR.ITP ---
Initial Treatment Plan Patient Information Visit Information: ADMISSION DATE: EXPECTED LOS: 4-6 weeks Problems/Symptoms Problem #1:: Schizoaffective Disorder Symptom:: restlessness, disorganization, anxiety
--- NOTE | 2025-01-01 10:20 | BH.NA_ITS ---
Physical Data Vital Signs Pulse Rate: 65 Blood Pressure: 139/86 Height/Weight Height: 1.73 m Weight:: 84.368 kg Weight in Pounds: 186.0 lbs Nutritional History Appetite Nutritional Instructions: Describe your appetite:: Good Additional nutritional information:: Client states his appetite is good, but states due to hiatal hernia and GERD, he feels hungry but can not eat a lot. Client states he has had a little weight gain recently. Functional Assessment Sleep Pattern Describe any problems with sleeping: Client states he is sleeping very little, and states he needs to take 10mg of Ambien or he won't sleep at all. Sensory/Communication Assess Vision Problems Do you have any vision problems?: Glasses Medical Problems/History Cardiac Conditions Cardiovascular: Hyperlipidemia Respiratory Conditions Respiratory: Asthma Metabolic Conditions Metabolic: Hypothyroidism Gastrointestinal Conditions Gastrointestinal: Other (See comments) (GERD, hiatal hernia) Pain Assessment Do you have acute or chronic pain?: Yes (neck/back) Family History Family History Other Arthritis Cancer Colon cancer Diabetes Heart disease Hypertension Skin cancer Uterine cancer Additional History Additional comments:: history catatonia, vertigo Surgical History Surgical History Have you had any surgeries? If so, list type and date:: Yes (appendectomy, brett, wisdom teeth) Substance Abuse Substance Abuse Please describe substance abuse in the last 30 days:: Client states he used alcohol heavily in college but denies current use. Client denies tobacco or substance use. Client states he stopped using caffeine due to his medications and his GERD. Mental Status Summary Mental Status Significant Findings/Observations on Appearance and Mood:: Client is alert and oriented. Client is casually groomed with good hygiene. Client makes good eye contact. Clients voice has normal rate and volume. Client has an appropriate affect. Client is able to answer most questions, but gets off topic at times and has somewhat long responses. Client denies SI. Suicide Assessment Suicidal Ideation Are you currently or have you been suicidal in the past?: Yes Suicidal Intentional Rating Scale (SIRS): Suicidal thoughts (past) Physician Notification Past Psychiatric History MH Treatment Hx Past Psychiatric Medications:: Risperdal, Zyprexa Age of first mental health symptoms: Client had first psychosis symptoms in 1997 and states this was the first time he had any issues with mental health. Client was diagnosed with schizoaffective disorder bipolar type. Describe (age, circumstance, etc) any past hospitalizations: one in 1997, two in 2023, and most recent 11/27/24-12/02/24 at [facility] due to paranoia that his was trying to harm him. Current providers for mental health treatment (counselor, psychiatrist, medical case manager, etc.): Dr. Baumann for psychiatry Fall Risk Assessment Age Age: Less than 60 Mental Status Mental Status: Willing & able to ask for assistance when needed Physical Status Physical Status: No problems Impairments Impairments: None Elimination Elimination: Continent AND independent Gait or Balance Gait or Balance: Walks independently Hx of Falls History of falls in the past 6 months: No known history Medications/Substances Psychotropics:: Antipsychotics, Mood stabilizers and Sedatives Medications/substances used within the past 24 hours or ordered to administer: 3 or more of the medications/substances listed above Total Score Total Points:: 2 RN Summary of Impressions Impressions Recommendations Impressions: Psychiatric Issues: schizoaffective disorder, bipolar type Impression: General Medical Conditions: Client reports feeling shortness of breath at times. During conversation, client's breathing is easy and non-labored and he is able to talk in long sentences. Client states he has had issues with asthma in the past but none recently. Denies edema in legs. Client states he has a virtual appointment with his PCP but thinks he will change it to an in person visit to discuss SOB. Level of Care How do the client's current symptoms and functional deficits support need for this level of care?: Client presents at [facility] after a recent hospitalization at [facility] in November 2024 after a period of paranoia that his was trying to harm him (per record). When client was asked what happened prior to hospitalization, he states My medications got all messed up on accident. I don't do well if I miss doses of medication. Client was started on PO Invega inpatient and his dose of his monthly Invega IM has been increased. Client states his biggest stressor is not having a job which has caused financial stress. [facility] will promote gains and prevent further decompensation while providing social support and skills training.
--- NOTE | 2025-01-01 11:15 | BH.MDN ---
Multi-Disciplinary Note Note 30-min Individual: Time Started:: 11:25 Date: 01/01/25 Purpose of session/treatment goals addressed:: Reviewed current symptoms and progress. Utilized the session to obtain pertinent history and goals. Began to develop treatment plan. Eye Contact:: Good Motor Activity:: Appropriate Appearance:: Disheveled Speech:: Pressured Mood:: Anxious Affect:: Congruent Thoughts:: Linear, Logical and No evidence of hallucinations/delusions noted Staff Interventions:: rapport building and treatment planning Client Response:: Pt was engaged in the session. Shared in great detail mental health and physical struggles in the past year. Several psychiatric admissions. Ruminating on his inability to work due to his mental health struggles. Pt was let go from employer on 01/10/24. According to pt this was related to his mental health instability. Inability to work has led to financial struggles which in turn has led to relationship challenges. We are going to go to couple's counseling. Elaborated on ongoing conflicts with and how this impacts his mental health. Medical limitations, mental health instability, and financial struggles how impacted his self-esteem and led to depression. Verbalized several times his desire to work or volunteer. Is linked with local [employer] program is utilizing other resources. I'm just not able to work now. We discussed treatment goals which include improving communication with his , engaging socially with his family (brother, nephew, nieces, daughter), and improve daily functioning. He benefits from being social and feeling appreciated which he is hoping that [facility] will provide. Risks/Concerns:: no risks or concerns noted. Denies suicidal ideations, plan, or intent. He reports history of suicidal ideations. Currently all of his guns are out of his house. Currently locked up at son-in-law's house. Progress Toward Goals/Plan:: This is pt's 2nd day in IOP. I love it. Everyone is so nice and the topics are helpful. Consulted with pt's psychiatrist prior to session who recommended helping pt with mood/sleep tracking to better understand his symptoms. Pt agrees and is open to utilizing mood tracker, sleep tracker, and daily activities tracker. Will continue in IOP to prevent decompensation/re-admission to psych unit, improve functioning, and increase healthy coping. Time Stopped:: 11:55
[2025-01-01 12:24] VITALS: BP 139/86; PULSE 65
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
--- NOTE | 2025-01-01 13:42 | BH.MTP ---
Master Treatment Plan Patient Information Program Physician:: Hunter Baumann Primary Therapist:: Cristian Finch Psychiatric Diagnoses Psychiatric Diagnoses:: Schizoaffective Disorder, Bipolar type Diagnosis Code(s):: F25.0 Estimated LOS Estimated LOS (in weeks):: 8 Problem/Goal #1 Problem/Goal #1 Stated Goal:: Client will reduce depressive symptoms, social withdrawal, and patterns of negative thinking associated with Schizoaffective Disorder, as evidenced by increased engagement in daily activities and improved mood regulation. Client will increase insight into their diagnosis of Schizoaffective Disorder and enhance self-awareness of daily mood patterns and functioning, including sleep, appetite, activities of daily living (ADLs), and task completion. Description of Barriers: Long-standing Schizoaffective disorder with muliple psychiatric admissions, hx of non-compliance with medications, stigma associated with mental illness. Functional Impact: 3 psychiatric admissions since February 2024. Recent was let go from his job due to mental illness. Conflict with his . Financial stressors. Goal Relevant Strengths/Supports: Appears motivated. Reports support from his certain family members Objectives Objective #1: Stated Objective: Client will identify and verbalize at least 2?3 symptoms of Schizoaffective Disorder and how they impact daily functioning within 4 weeks. Interventions: Through group and individual counseling interventions will provide education on Schizoaffective Disorder. Discharge Criteria: Able to identify criteria and warning signs for Schizoaffective Disorder Target Date: 02/24/25 Review Date: 01/27/25 Objective #2: Stated Objective: Client will track mood, sleep, appetite, and task completion using a daily log or cinthia at least 5 days per week for 6 consecutive weeks. Client will increase social interaction by initiating or participating in at least one social activity bi-monthly (e.g., group therapy, community event, or peer interaction) while in iOP Interventions: Through individual and group counseling will provide education on mood tracking benefits and strategies. Will also provide education on behavioral activation, decreasing stigma, and social engagement. Discharge Criteria: Will have completed tracker. Target Date: 02/24/25 Review Date: 01/27/25 Objective #3: Stated Objective: Client will identify and implement at least 2 coping strategies to manage anxiety symptoms, and report a reduction in anxiety levels AEB by self-report and DSM5 cross-cutting scales. Interventions: Through individual and group counseling will provide pt with CBT and DBT techniques to help client gain awareness of thinking errors and learn how to more effectively handle negative thoughts that lead to anxiety. Discharge Criteria: Able to identify and consistently utilize two coping strategies. Target Date: 02/24/25 Review Date: 01/27/25
--- NOTE | 2025-01-04 09:00 | BH.SGPN.GN ---
Behaviors/Verbalizations/Mental Status: [] Client alert and oriented, casual appearance, fair grooming. Eye contact good. Motor activity appropriate. Speech within normal limits. Affect congruent, mood euthymic. Thoughts linear, logical, no signs of hallucinations or delusions. Reviewed client's symptom tracker, no risk for suicidal ideation, plan, or intent. Client Response/Progress/Benefit: [] Client responded well to session AEB listening to others and sharing thoughts/feelings. Pt reported on daily symptom tracer a 0/5 for depression and a 0/5 for anxiety. Patient reported mental positive as getting to spend a lot of time over the weekend with his grandchildren. Patient noted additional mental positives as being able to help out with the grandchildren a lot and not experiencing feelings of being overwhelmed. Client stated current stressor as being out of work which adds financial stress to his plate. Appeared to benefit from support from peers. Will continue IOP tx to improve mood stability, challenge distortions, and prevent decompensation. Narrative Note: []
--- NOTE | 2025-01-06 09:05 | BH.SGPN.GN ---
Behaviors/Verbalizations/Mental Status: [] Eye contact is good. Motor activity is appropriate. Appearance is casual. Speech is Appropriate. Mood is dysthymic. Affect is congruent. Thoughts are linear and logical. No evidence of psychosis. Reviewed daily check in sheet and no reports of suicidal ideations or intent. Client Response/Progress/Benefit: [] Pt participated at times during the group discussions. Attentive. Daily symptom tracker notes limited distress. He reports feeling ? ill? yesterday however is feeling better. When he was ill he spent more time alone which he noticed impacted his mental health. Insight on the importance that being social has on mental health. Progress noted. Has maintained stability. Benefited from group support, encouragement, and feedback. Will continue in IOP to prevent decompensation/re-admission to psych hospital, stabilize mood, and improve functioning. Narrative Note: []
--- NOTE | 2025-01-06 10:10 | BH.SGPN.GN ---
Behaviors/Verbalizations/Mental Status: [] Eye contact is good. Motor activity is appropriate. Appearance is casual. Speech is Appropriate. Mood is content and anxious. Affect is congruent. Thoughts are linear and logical. No evidence of psychosis. Client Response/Progress/Benefit: [] Client engaged participant at times during group session as evidenced by contributions during group discussions, appearing to listen to others, and taking notes. Client engaged in discussion about barriers that keep people from having difficult confrontations. Group identified potential reasons individuals avoid difficult conversations which included; feeling uncomfortable, reaction of others, fear, and avoiding conflict. Group also identified benefits to having crucial conversations. Pt identified things they do that impact their communication making assumptions. Client seemed to benefit from increased awareness and education about importance of having difficult conversations and recognizing the impact of avoiding such conversations. Client to continue IOP to prevent decompensation, increase healthy coping, and improve functioning. Narrative Note: []
--- NOTE | 2025-01-06 11:10 | BH.SGPN.GN ---
Behaviors/Verbalizations/Mental Status: [] Eye contact is good. Motor activity is appropriate. Appearance is casual. Speech is Appropriate. Mood is euthymic. Affect is full. Thoughts are linear and logical. Client Response/Progress/Benefit: [] Pt was an active participant, engaged in activities and discussion. Pt able to identify ways they negatively contribute to crucial conversations and pt was engaged during psychoeducation of the different ways to build interpersonal effectiveness skills. Pt and peers practiced mirroring and active listening with assigned partners. Group reviewed DEAR MAN and used the handout to help map out how they would like a crucial conversation in their life to go. Pt identified an upcoming crucial conversation with his and completed worksheet adhering to DEAR MAN strategies . Pt appeared to benefit from learning and practicing interpersonal effectiveness skills. Pt will continue IOP tx to prevent decompensation/readmission to psych unit, provide support, and improve functioning. Narrative Note: []
== END 2025-01-07 23:59 ==
LOC: BHIOP 08:00
PROVIDERS: PCP Family Medicine; Referring Provider Student in an Organized Health Care Education/Training Program; Visit Provider Student in an Organized Health Care Education/Training Program
DX: F25.0 Schizoaffective disorder, bipolar type (principal); F20.2 Catatonic schizophrenia; G25.9 Extrapyramidal and movement disorder, unspecified; Z79.899 Other long term (current) drug therapy
CPT/HCPCS: S9480; 90832; 90853

== ENCOUNTER 2025-01-04 19:55 | Emergency (ER) | payer OTHER, SELFPAY ==
[2025-01-04 19:56] VITALS: BP 127/80; PULSE 93; RESP 16; TEMP 37.1; O2SAT 97; BMI 28.0
[2025-01-04 20:08] VITALS: O2SAT 100
--- NOTE | 2025-01-04 20:08 | EKG12_ITS ---
Test Reason : CP Blood Pressure : */* mmHG Vent. Rate : 80 BPM Atrial Rate : 80 BPM P-R Int : 190 ms QRS Dur : 90 ms QT Int : 360 ms P-R-T Axes : 30 20 30 degrees QTcB Int : 415 ms Normal sinus rhythm Possible Left atrial enlargement Borderline ECG Confirmed by MILTON JAIME, NAM ([id number]), photography editor BISI HERNANDEZ ([id number]) on 01/05/2025 1:03:57 PM Referred By: TB Confirmed By: NAM ROSE MD
[2025-01-04 20:45] LABS: Hematocrit 39.3 % (40-54); Hemoglobin 13.2 g/dL (13.0-16.5); Immature Granulocytes Count 0.010 X10^3/uL (0.0-0.0); Mean Corp Hgb Conc 33.6 g/dL (32-36); Mean Corpuscular Volume 86.0 fL (80-94); Mean Platelet Vol. 9.3 fl (6.2-12.0); NRBC Flagged by Analyzer 0 % (0-5); Platelet Count 229 K/mm3 (150-450); RBC Distribution Width CV 13.2 % (11.6-14.6); RBC Distribution Width SD 41.1 fl (35.1-43.9); Red Blood Count 4.57 M/mm3 (4.6-6.2); White Blood Count 6.8 K/mm3 (4.4-11.0)
--- NOTE | 2025-01-04 20:48 | RAD_ITS ---
PROCEDURE: CHEST 1 VIEW (PORTABLE) 01/04/2025 REASON FOR EXAM: CHEST PAIN TECHNIQUE: Frontal view of the chest. COMPARISON: 11/27/2024 FINDINGS: Lungs/Pleura: Clear. No pneumothorax or pleural effusion. Heart/Mediastinum: Normal in size. Bones/Soft tissues: Unremarkable. Cholecystectomy surgical clips. RAD/Chest 1 View (Portable) IMPRESSION: No acute cardiopulmonary disease. Reading Location: [id number]
[2025-01-04 21:00] VITALS: BP 135/61; PULSE 81; RESP 18; O2SAT 100
[2025-01-04 21:26] LABS: Anion Gap 11 (5-15); BUN 16 mg/dL (4-19); BUN/Creat Ratio 16.1 RATIO (10-20); Calcium,Total 8.5 mg/dL (7.6-11.0); Carbon Dioxide 23.0 mmol/L (21.0-32.0); Chloride 105 mmol/L (98-108); Estimated Creatinine Clearance 86.51 ml/min (50-250); Glucose 95 mg/dL (70-99); Potassium 3.9 mmol/L (3.3-5.1); Troponin T High Sensitivity 7 ng/L (<=22)
[2025-01-04 22:00] VITALS: BP 120/78; PULSE 80; O2SAT 100
[2025-01-04] MEDS: Lidocaine 2% Viscous15 ML UDC 15 ML PO (22:40)
[2025-01-04 23:00] VITALS: BP 125/77; PULSE 77; O2SAT 100
[2025-01-04 23:00] LABS: Troponin T High Sens 2 HR 12 ng/L (<=22)
--- NOTE | 2025-01-04 23:12 | EDS_ITS ---
HPI History of Present Illness Chief Complaint: Chest Pain Narrative Narrative: Patient is a 59-year-old male with past medical history of hypercholesteremia, hypothyroidism, bipolar 1 disorder, catatonia who presents to the emergency department chief complaint chest pain. He states that his chest discomfort started earlier this evening he states that he was sitting and resting. He states that nothing made this better or worse. He states that he did had a stress test recently and notes that this was normal. Patient thinks that it may be his acid reflux. Denies any recent travel history denies history of blood clots [facility] Medical History Catatonia C. difficile colitis Cholecystectomy planned Thyroid disease Pneumonia High cholesterol Generalized headaches Gastrointestinal problem Gallstones Cataracts, bilateral Bone fracture Back problem Asthma Arthritis Alcohol abuse Bipolar 1 disorder Hypothyroid Home Medications ?Medication ?Instructions ?Recorded ?Last Taken ?Type olanzapine 5 mg tablet 5 mg PO QHS #30 tabs 5 Unknown Rx omeprazole 40 mg capsule,delayed 40 mg PO BID 11/27/24 Unknown History release levothyroxine 125 mcg tablet 100 mcg PO DAILY disorder of 12/10/24 Unknown History thyroid gland paliperidone 3 mg tablet,extended 3 mg PO QAM #30 tabs 12/21/24 Unknown Rx release 24 hr (Invega) paliperidone palmitate 234 mg/1.5 234 mg (1.5 mL) IM Q MONTH 28 days 12/21/24 Unknown Rx mL intramuscular syringe #1.5 mL lamotrigine 150 mg tablet 150 mg PO QDAY #30 tabs 12/08 11/01 Unknown Rx zolpidem 10 mg tablet 10 mg PO QHS PRN insomnia #3 0 tabs 12/22/24 Unknown Rx alfuzosin 10 mg tablet,extended 10 mg PO 01/01/25 Unkn own History release 24 hr meclizine 25 mg tablet 25 mg PO TID PRN dizziness 0 01/01/25 Unknown History Allergy/AdvReac Type Severity Reaction Status Date / Time fluticasone (From Flonase) Allergy nose bleed Verified 01/04/25 19:58 latex Allergy Rash Verified 01/04/25 19:58 red dye Allergy Rash Verified 01/04/25 19:58 Sulfa (Sulfonamide Allergy Unknown Verified 01/04/25 19:58 Antibiotics) benztropine AdvReac Severe vision Verified 01/04/25 19:58 changes lorazepam (From Ativan) AdvReac Mild paranoid Verified 01/04/25 19:58 Family History Other Arthritis Cancer Colon cancer Diabetes Heart disease Hypertension Skin cancer Uterine cancer Surgical History History of appendectomy H/O wisdom tooth extraction Social History housing: house Smoking Status: Never smoker alcohol intake: never substance use type: does not use what type of physical activity do you participate in: none ROS ROS ED ROS Narrative Constitutional: Denies any fevers, chills, headaches Eyes: Denies change in vision double vision Cardiovascular: Complains of chest pressure as noted above denies palpitations Respiratory: Denies cough or wheezing shortness of breath Abdomen: Denies abdominal pain nausea vomit diarrhea : Denies urinary symptoms Neurological: Denies any numbness, wheeze, tingling Musculoskeletal: Denies back pain Skin: Denies any rashes or lesions EXAM Physical Exam Narrative Exam Narrative: General: Patient was lying in bed rest comfortably did not appear to be acute distress Head: Atraumatic, normocephalic Eyes: PERRL bilaterally, EOMI black no conjunctival injection noted Neck: Soft, supple, trachea midline Cardiovascular: Regular rate and rhythm no murmurs gallops rubs noted Respiratory: Clear to auscultation bilaterally Abdomen: Soft, nondistended, nontender to palpation Extremities: +5/5 strength noted in the bilateral upper and lower extremities, radial pulses +2/4 in the bilateral extremities Neurological: Patient follow commands and that he was at [facility] years 2024 Skin: Warm, dry, tact no rashes or lesions noted Const Vital Signs: 01/04/25 19:56 01/04/25 20:08 01/04/25 21:00 Temperature 98.8 F Temperature Source Oral Pulse Rate 93 81 Respiratory Rate 16 18 Blood Pressure 127/80 H 135/61 H Blood Pressure Mean 95 85 Pulse Ox 97 100 100 Oxygen Delivery Method Room Air Room Air 01/04/25 22:00 01/04/25 23:00 Temperature Temperature Source Pulse Rate 80 77 Respiratory Rate Blood Pressure 120/78 125/77 H Blood Pressure Mean 92 93 Pulse Ox 100 100 Oxygen Delivery Method MDM MDM MDM Narrative Medical decision making narrative: Patient is a 59-year-old male who presented to the emergency department chief complaint chest pain. On the differential diagnosis includes but limited to GERD, ACS, PE, pneumonia, pneumothorax. Once workup is obtained reviewed he will be reevaluated. Patient CBC was reviewed showed no evidence leukocytosis white blood cell was noted to be normal at 6.8, hemoglobin stable 13.2, platelet count was noted be 229. Patient sodium is 139, potassium normal 3.9, creatinine was 0.97. Patient's troponin was 7 with a delta troponin of 12. Patient EKG was reviewed showed sinus rhythm with a rate of 80 bpm. Patient chest x-ray reviewed by myself by radiology showed no acute cardiopulmonary processes. Patient was given GI cocktail. [place] Score (Revised) for Pulmonary Embolism from [email or web address] on 01/04/2025 All calculations should be rechecked by clinician prior to use RESULT SUMMARY: 3 points Low risk group: 7-9% incidence of PE from several studies. INPUTS: Age >65 ?> 0 = No Previous DVT or PE ?> 0 = No Surgery (under general anesthesia) or lower limb fracture in past month ?> 0 = No Active malignant condition ?> 0 = No Unilateral lower limb pain ?> 0 = No Hemoptysis ?> 0 = No Heart rate ?> 3 = 75-94 Pain on lower limb palpation and unilateral edema ?> 0 = No Reevaluation patient is feeling much better he would like to go home at this point time. Patient was advised to follow-up with his doctor in outpatient setting return for worsening symptoms or concerns. He is agreeable this plan all question concerns answered he is discharged home in stable condition. Lab Data Labs: Laboratory Results - last 24 hr 01/04/25 01/04/25 20:34 22:16 WBC 6.8 RBC 4.57 L Hgb 13.2 Hct 39.3 L MCV 86.0 MCH 28.9 MCHC 33.6 RDW Std Deviation 41.1 RDW Coeff of Monica 13.2 Plt Count 229 MPV 9.3 Immature Gran % (Auto) 0.100 Neut % (Auto) 65.9 Lymph % (Auto) 22.5 Meagher % (Auto) 10.5 H Eos % (Auto) 0.9 Baso % (Auto) 0.1 Absolute Neuts (auto) 4.4 Absolute Lymphs (auto) 1.52 Nucleated RBC % 0 Sodium 139 Potassium 3.9 Chloride 105 Carbon Dioxide 23.0 Anion Gap 11 BUN 16 Creatinine 0.97 Estim Creat Clear Calc 86.51 Est GFR (MDRD) Non-Af 90 BUN/Creatinine Ratio 16.1 Glucose 95 Calcium 8.5 Troponin T High Sens 7 Troponin T Hi Sens 2 Hr 12 Radiography Diagnostic Testing: Clinical Impression(s) from Imaging Studies Chest X-Ray 01/04/25 20:48 IMPRESSION: No acute cardiopulmonary disease. Reading Location: [id number] Discharge Plan Triage Chief Complaint: Chest Pain ED Provider: Nnamdi Yoder Dx/Rx/DC Orders Clinical Impression: Chest pain, GERD (gastroesophageal reflux disease), Catatonia Prescriptions: No Action lamotrigine 150 mg tablet 150 mg PO QDAY Qty: 30 2RF zolpidem 10 mg tablet 10 mg PO QHS PRN (Reason: insomnia) Qty: 30 2RF alfuzosin 10 mg tablet extended release 24 hr 10 mg PO meclizine 25 mg tablet 25 mg PO TID PRN (Reason: dizziness) omeprazole 40 mg capsule,delayed release(DR/EC) 40 mg PO BID levothyroxine 125 mcg tablet 100 mcg PO DAILY olanzapine 5 mg tablet 5 mg PO QHS Qty: 30 1RF paliperidone palmitate 234 mg/1.5 mL syringe 234 mg IM QMONTH 28 Days Qty: 1.5 4RF paliperidone [Invega] 3 mg tablet extended release 24hr 3 mg PO QAM Qty: 30 0RF Primary Care Provider: Ziyad Antunez Referrals: Ziyad Antunez MD [Primary Care Provider] - Activity Restrictions/Additional Instructions: Your blood work did not show any acute findings here today. Follow-up your doctor in the outpatient setting. Return with worsening symptoms or any other concerns Print Language: Taiwanese Disposition Disposition: Home, Self Care
[2025-01-04 23:16] VITALS: BP 125/77; PULSE 70; RESP 18; TEMP 37.1; O2SAT 96
== END 2025-01-04 23:21 | disposition home or self-care (01) ==
PROVIDERS: Emergency Provider Emergency Medicine; PCP Family Medicine; Visit Provider Emergency Medicine
DX: R07.9 Chest pain, unspecified (principal); F31.9 Bipolar disorder, unspecified; K21.9 Gastro-esophageal reflux disease without esophagitis; F06.1 Catatonic disorder due to known physiological condition; E03.9 Hypothyroidism, unspecified; Z79.890 Hormone replacement therapy; Z79.899 Other long term (current) drug therapy; Z90.49 Acquired absence of other specified parts of digestive tract
CPT/HCPCS: 71045; 80048; 84484; 85025; 93005; 99283; A4216

== ENCOUNTER 2025-01-08 07:51 | Outpatient (RCR) | payer OTHER, SELFPAY ==
--- NOTE | 2025-01-08 09:05 | BH.SGPN.GN ---
Behaviors/Verbalizations/Mental Status: [] Eye contact is good. Motor activity is appropriate. Appearance is casual. Speech is Appropriate. Mood is dysthymic. Affect is congruent. Thoughts are linear and logical. No evidence of psychosis. Reviewed daily check in sheet and no reports of suicidal ideations or intent. Client Response/Progress/Benefit: [] Pt participated at times during the group discussions. Attentive. Daily symptom tracker notes no distress. Able to identify mental health wins and healthy habits. Plans to incorporate spiritual meditation in the AM which he found very helpful this morning. Elaborated on how this can improve his mental health. According to pt he is staying active and being social which are very important to his mental health. Progress noted. Benefited from group support, encouragement, and feedback. Will continue in IOP to prevent decompensation/re-admission to psych unit, increase healthy coping, and improve functioning. Narrative Note: []
--- NOTE | 2025-01-08 10:10 | BH.SGPN.GN ---
Behaviors/Verbalizations/Mental Status: [] Eye contact is good. Motor activity is appropriate. Appearance is casual. Speech is Appropriate. Mood is dysthymic. Affect is congruent. Thoughts are linear and logical. No evidence of psychosis. Client Response/Progress/Benefit: [] Pt was engaged and participating throughout, providing input and taking notes. Attentive during psychoeducation on anxiety and cognitive triangle. Participated in an interactive discussion on defining anxiety and identifying cognitive and physiological symptoms of anxiety. The group discussed helpful vs harmful anxiety. Pt identified their physical/physiological signs of anxiety which includes: upset stomach and increased heart rate. Benefited from increased awareness and insight on anxiety and its impact. Will continue in IOP to prevent decompensation, stabilize mood, and promote use of healthy coping skills.
--- NOTE | 2025-01-08 11:15 | BH.SGPN.GN ---
Behaviors/Verbalizations/Mental Status: [] Eye contact is good. Motor activity is appropriate. Appearance is disheveled. Speech is Appropriate. Mood is anxious and depressed. Affect is congruent. Thoughts are linear and logical. No evidence of psychosis. Client Response/Progress/Benefit: [] Pt was an active participant AEB pt providing input and listening attentively to peers. Attentive during psychoeducation on mindfulness coping skills, body-based coping skills, and mind-based coping skills and their impact on reducing anxiety and improving overall mental health wellness. Group was able to identify self-soothing and mind-based coping skills which included: 5-senses, meditation, deep breathing,walking/exercise, music, engaging with others, opposite-action, and affirmations. Pt verbalized skill to make effort to use this week as coloring or drawing. Pt will continue IOP to prevent decompensation/re-admission to psych unit, stabilize mood, increase healthy coping, and improve functioning.
--- NOTE | 2025-01-08 12:15 | BH.MDN_ITS ---
Multi-Disciplinary Note Note 30-min Individual: Time Started:: 12:15 Date: 01/08/25 Purpose of session/treatment goals addressed:: Reviewed current symptoms and progress in IOP. Addressed treatment objectives 1 and 2. Eye Contact:: Good Motor Activity:: Appropriate Appearance:: Disheveled Speech:: Soft Mood:: Depressed Thoughts:: Linear, Logical and No evidence of hallucinations/delusions noted Staff Interventions:: psychoeducation on: (schizoaffective disorder), rapport building and goal setting Client Response:: Pt continues to perseverate on his inability to work and financial stressors. Mentions that his works on the weekends because I can't work. Guilt associated with his inability to work due to his mental health struggles and several psychiatric admissions in the past year. Responded well to discussion on radical acceptance in his current situation. Reviewed a ffirmations and other strategies to implement to practice acceptance. Rest of the session was spent on education on Schizoaffective disorder, identifying daily goals, and introducing a mood/sleep tracker. Risks/Concerns:: no risks or concerns noted. Progress Toward Goals/Plan:: Consistent and engaged in IOP. He reports benefits from the psychoeducation and support. He benefits a great deal from social interaction, routine, and accountability as well. Pt has a surface understanding of Schizoaffective disorder however struggled with asked to define. irrational thinking. Has limited knowledge of other criteria, warning signs, or jay/hypomania. Education and awareness of criteria and prevalence will help decrease stigma. Introduced mood tracking worksheet. We also developed 3 SMART goals for the next week which include doing laundry for him/, spending 15 minutes cleaning his workspace, and weeding. Responding well to IOP. Will continue to prevent decompensation/re-admission, stabilize mood, and improve functioning. Time Stopped:: 12:45
--- NOTE | 2025-01-11 09:05 | BH.SGPN.GN ---
Behaviors/Verbalizations/Mental Status: [] Eye contact is good. Motor activity is appropriate. Appearance is casual. Speech is Appropriate. Mood is anxious. Affect is congruent. Thoughts are linear and logical. No evidence of psychosis. Reviewed daily check in sheet and no reports of suicidal ideations or intent. Client Response/Progress/Benefit: [] Pt participated at times during the group discussions. Attentive. Daily symptom tracker notes 08/12 for anxiety. Shared with the group that he completed several mental health goals over the weekend which included spending time with his relatives as well as completing SMART goals. He was able to clean an area in his house for at least 15 minutes which he completed over the weekend. He actually spend over 15 minutes. [place] engaged and productive, however reports an argument with his and an unexpected project caused stress. Did not elaborate on either. Sleep continues to be an issue. Reports laying in bed just thinking. Group provided support as well as suggestions to help with ruminations at time which was beneficial. Will continue in IOP to prevent decompensation/re-admission to psych unit, increase healthy coping, and improve functioning. Narrative Note: []
--- NOTE | 2025-01-11 10:10 | BH.SGPN.GN ---
Behaviors/Verbalizations/Mental Status: []Eye contact is fair. Motor activity is appropriate. Appearance is casual. Speech is Appropriate. Mood is anxious and dsythymic. Affect is constricted. Thoughts are linear and logical. No evidence of psychosis. Client Response/Progress/Benefit: []Pt was an active participant in group discussions. Attentive during psychoeducation on the 4 communication styles (Passive, Passive-Aggressive, Aggressive, and Assertive) and the obstacles to effective communication. Contributed during interactive discussion on the benefits of communicating effectively. Worked well with peers to identify the benefits and disadvantages to the different communication styles. Pt believes that he is primarily passive and can become passive-aggressive when feels needs are not met. pt stated when gets overwhelmed and lonely is when he will sometimes lash out. Benefited from increased understanding of communication styles and how these can impact effective communication. Will continue in IOP to improve mood stability, challenge negative thoughts, and prevent decompensation. Narrative Note: []
--- NOTE | 2025-01-11 11:15 | BH.SGPN.GN ---
Behaviors/Verbalizations/Mental Status: []Pt alert and oriented, casually dressed and groomed. Eye contact good. Motor activity restless. Speech within normal limits. Affect congruent, mood engaged. Thoughts linear, logical, no signs of hallucinations or delusions. Client Response/Progress/Benefit: [] Pt responded well to session AEB Pt listening attentively to others and providing input during group discussion on the pay offs and costs of the different communication styles. Pt able to connect how current communication style impacts mental health. Connected with peers? comments about the importance of using assertive communication. Pt seemed to benefit from increasing awareness of healthy strategies to improve communication and worked with peers during the experiential activity to practice assertive communication. Pt reported wanting to work on ?not waiting until I?ve shoved too much to communicate.? Will continue IOP tx to prevent decompensation, increase distress tolerance skills, and improve daily functioning. Narrative Note: []
--- NOTE | 2025-01-13 09:05 | BH.SGPN.GN ---
Behaviors/Verbalizations/Mental Status: [] Eye contact is good. Motor activity is appropriate. Appearance is casual. Speech is Appropriate. Mood is anxious and dysthymic. Affect is congruent. Thoughts are linear and logical. No evidence of psychosis. Reviewed daily check in sheet and no reports of suicidal ideations or intent. Client Response/Progress/Benefit: [] Pt participated at times during the group discussions. Attentive. Able to identify mental health wins and healthy habits. According to pt he was able to work through verbal conflict with his regarding finances. However he has put pressure on himself to return to work as his is currently working 2 jobs. Progress noted. Benefited from group support, encouragement, and feedback. Will continue in IOP to prevent decompensation/re-admission to psych unit, improve functioning, and stabilize mood. Narrative Note: []
--- NOTE | 2025-01-13 10:05 | BH.SGPN.GN ---
Behaviors/Verbalizations/Mental Status: [] Eye contact is good. Motor activity is appropriate. Appearance is casual. Speech is Appropriate. Mood is dysthymic. Affect is congruent. Thoughts are linear and logical. No evidence of psychosis. Client Response/Progress/Benefit: [] Pt participated in the group discussions AEB providing input and taking notes. Attentive during psychoeducation on SMART Goal Setting. Pt worked with group to identify common barriers to goal setting which included; mental health struggles, energy/motivation, limited support, change to routine, lack or resources, having unrealistic goals, and our internal expectations. Group also identified benefits of goals, which included: promotes a sense of accomplishment, it challenges oneself, can boast confidence, and can cause positive change/growth. Pt identified personal benefits to goal setting. Benefited from increased awareness of mental health benefits of goals as well as psychoeducation on SMART goal criteria. Will continue in IOP to prevent decompensation/re-admission to psych unit, increase healthy coping, and improve functioning. Narrative Note: []
--- NOTE | 2025-01-13 11:05 | BH.SGPN.GN ---
Behaviors/Verbalizations/Mental Status: [] Pt alert and oriented. Appearance is casual, hygiene is appropriate. Eye contact good. Motor activity appropriate. Speech within normal limits. Affect is anxious. Mood is congruent. Thoughts linear, logical, no signs of hallucinations or delusions. Client Response/Progress/Benefit: [] Pt was engaged during discussion and experiential activity. Completed the worksheet challenging them to develop a personal SMART goal. Pt chose a SMART goal to pray, read Bible, and record in journal for 15 minutes a day. Believes this goal will benefit him by relieving anxiety and guiding improving his positivity. Identified obstacles such as getting up late and other distractions. Benefited from this group by developing a short-term SMART goal related to mental health. Will continue IOP to prevent decompensation, improve confidence, and stabilize mood.
--- NOTE | 2025-01-13 12:00 | BH.MDN ---
Multi-Disciplinary Note Note 45-min Individual: Time Started:: 12:00 Date: 01/13/25 Purpose of session/treatment goals addressed:: Used the session to review current progress and symptoms. Addressed treatment plan goals 1-3. Eye Contact:: Good Motor Activity:: Appropriate Appearance:: Casual Speech:: Soft Mood:: Anxious and Dysthymic Affect:: Congruent Thoughts:: Linear, Logical and No evidence of hallucinations/delusions noted Staff Interventions:: psychoeducation on: (communication and assertive skills; Use of I statements), rapport building and goal setting Client Response:: Pt has been completing daily mood/sleep tracking since last week. Has also been completed a series of questions which trigger him to reflect on the day. Has found this helpful for his mental health. We developed 3 SMART goals last week and pt has followed through with those as well. Further discussion did reveal that he may become hyper fixated on tasks which can lead to burnout or feeling overwhelmed. Modified certain goals to have a time limit. Communication with continues to be a significant stressor. According to pt she gets frustrated with him often and can be dismissive. Gave example or argument last night which centered around finances. Currently pt has to ask his for money as his debit card is not working. This leads to arguments over if the items are needed. According to pt the items are necessities (gas, groceries, etc.). Pt has been attempting to activate his card however has had obstacles. Problem-solved and role played assertive and appropriate communication strategies. Also spend time during session with psychoeducation on Schizoaffective Disorder. Risks/Concerns:: No risks or concerns noted. Progress Toward Goals/Plan:: Progress noted. Consistent and engaged in IOP. Takes copious notes and follows through with assignments. Medication compliant. Reports focus, concentration, and memory are improving. Reports poor sleep with anywhere from 2-6 hours a night. Continues to have excessive guilt due to not working. Is linked with employment agencies locally through [employer] and [employer] with Disabilities. 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 He would like treatment team including Dr. Baumann to discuss allowing him to return to PT work. Feels it will help with his self-esteem, provide distraction, increase socialization, and alleviate guilt/financial issues. Most recent psychiatric hospitalization was on 12/02/24. Will discuss with Dr. Baumann Time Stopped:: 12:45
--- NOTE | 2025-01-15 09:05 | BH.SGPN.GN ---
Behaviors/Verbalizations/Mental Status: [] Pt alert and oriented, neatly dressed and groomed. Eye contact good. Motor activity appropriate. Speech within normal limits. Affect congruent, mood euthymic. Thoughts linear, logical, no signs of hallucinations or delusions. Reviewed pt?s symptom tracker, no risk for suicidal ideation, plan, or intent 01/15/25. Client Response/Progress/Benefit: []Pt was an active participant in group discussions. Attentive. Able to identify mental health wins including accomplishing a yard work task and getting quality time with his daughter and grandkids. Pt's stressor today is ?the stuff going on with [employer] and I don?t know if I should fight it.? The group offered pt encouragement and emotional support which pt reported was helpful. Pt is feeling tired and happy? this morning. Pt receptive to feedback from peers. Progress noted. Benefited from group support, encouragement, and feedback. Will continue IOP tx to increase distress tolerance skills, gain healthy coping skills, and improve daily functioning. ? Narrative Note: []
--- NOTE | 2025-01-15 10:04 | BH.SGPN.GN ---
Behaviors/Verbalizations/Mental Status: [] Eye contact is good. Motor activity is appropriate. Appearance is casual. Speech is Appropriate. Mood is depressed. Affect is congruent. Thoughts are linear and logical. No evidence of psychosis. Client Response/Progress/Benefit: [] Pt engaged participant AEB listening to others, engaging in activity, and providing feedback throughout. Attentive during psychoeducation and provided insight into obstacles that impede mental wellness. Pt shared with group current mental health reality and desired mental health reality. Identified barriers to desired reality which included difficulties with communication and not asking for help. Benefited from taking look at current mental health state and obstacles for progress. Pt to d/c from IOP today and continue IOP tx to prevent decompensation, stabilize mood, and improve functioning. Narrative Note: []
--- NOTE | 2025-01-15 11:00 | BH.SGPN.GN ---
Behaviors/Verbalizations/Mental Status: []Eye contact is good. Motor activity is appropriate. Appearance is casual. Speech is Appropriate. Mood is euthymic. Affect is congruent. Thoughts are linear and logical. No evidence of psychosis. Client Response/Progress/Benefit: [] Pt was an engaged participant in group discussion and activity. Worked with group to identify strategies to help overcome barriers and obstacles to desired reality. Group developed strategies for the common barriers. Identified personal barriers to desired reality and choose one obstacle to work on. Pt stated wanting to work on barrier of isolation by going to a sikh group at his sister?s house. Pt seemed to benefit from increased repertoire of healthy coping skills/strategies to overcome common barriers to moving forward. Pt is to continue IOP prevent decompensation, improve daily functioning, and monitor mood. Narrative Note: []
--- NOTE | 2025-01-18 09:05 | BH.SGPN.GN ---
Behaviors/Verbalizations/Mental Status: [] Eye contact is good. Motor activity is appropriate. Appearance is casual. Speech is Appropriate. Mood is euthymic. Affect is full. Thoughts are linear and logical. No evidence of psychosis. Reviewed daily check in sheet and no reports of suicidal ideations or intent. Client Response/Progress/Benefit: [] Pt participated at times during the group discussions. Attentive. Symptom tracker shows no significant distress. Able to identify mental health wins and healthy habits. Pt was social this weekend which always improves his mental health. ? I?m happy?. Overall superficial check-in however continues to display stable mood. Progress noted. Benefited from group support, encouragement, and feedback. Will continue in IOP to stabilize mood, improve functioning, and provide support. Narrative Note: []
--- NOTE | 2025-01-18 10:05 | BH.SGPN.GN ---
Behaviors/Verbalizations/Mental Status: []Pt alert and oriented, casually dressed and groomed. Eye contact good. Motor activity appropriate. Speech within normal limits. Affect congruent, mood anxious. Thoughts linear, logical, no signs of hallucinations or delusions. Client Response/Progress/Benefit: [] Pt receptive to session AEB contributing to group discussion, as well as listening attentively to others, and taking notes. Worked with group to brainstorm the positive and negative aspects of stress on physical and mental health as well as the impact of distress on performance, relationships, and mental health. Pt shared their current personal top stressors to be: money, going back to work, and managing his relationships. Shared when feeling overwhelmed with stress pt tends to lash out, not sleep, and forget ?a lot?. Benefited from increased awareness of positive and negative stress as well as how stress impact individuals. Will continue IOP tx to prevent decompensation, improve daily functioning, and gain healthy coping skills. ?? Narrative Note: []
--- NOTE | 2025-01-18 11:10 | BH.SGPN.GN ---
Behaviors/Verbalizations/Mental Status: []Eye contact is good. Motor activity is appropriate. Appearance is casual. Speech is Appropriate. Mood is euthymic. Affect is congruent. Thoughts are linear and logical. No evidence of psychosis. Client Response/Progress/Benefit: [] Pt was an attentive participant in group discussions and actively engaged during experiential activity, doing well to regulate their emotions throughout the activity and work with peers. Attentive during psychoeducation on the 4 A's (Avoid, adapt, alter, accept) of coping with stress. Shared that they would benefit most from practicing avoiding unnecessary stress by saying no when his plate his already full. Was able to identify the connection between the experiential activity and utilization of stress management skills. Benefited from increased awareness of stress management strategies. Pt will continue IOP to improve mood stability, challenge distorted thoughts, and prevent decompensation.
--- NOTE | 2025-01-20 09:05 | BH.SGPN.GN ---
Behaviors/Verbalizations/Mental Status: [] Eye contact is good. Motor activity is appropriate. Appearance is casual. Speech is Appropriate. Mood is anxious. Affect is congruent. Thoughts are linear and logical. No evidence of psychosis. Reviewed daily check in sheet and no reports of suicidal ideations or intent. Client Response/Progress/Benefit: [] Pt participated at times during the group discussions. Attentive. Ruminating on interaction with his last night. Believes that he ? reacted poorly? during a conversation. Continues to be tension and conflict with due to pt?s struggle to maintain employment as the result of his mental health as well as 3 psychiatric admissions in the past year. Pt reports guilt and perceived pressure from to work, however he doesn?t feel confident that he can. Often times reports feeling ? dismissed? and disrespected. Regression noted. Benefited from group support, encouragement, and feedback. Will continue in IOP to stabilize mood, prevent decompensation/re-admission to psych unit, and to provide support. Narrative Note: []
--- NOTE | 2025-01-20 10:10 | BH.SGPN.GN ---
Behaviors/Verbalizations/Mental Status: []Pt alert and oriented, casually dressed and groomed. Eye contact good. Motor activity appropriate. Speech within normal limits. Affect congruent, mood dysthymic. Thoughts linear, logical, no signs of hallucinations or delusions. Client Response/Progress/Benefit: [] Pt participated during the group discussion, providing input and remaining attentive during psychoeducation. Participated in experiential activity. Pt contributed during interactive discussion on the consequences of unhealthy expression of emotions. Worked with group to identify several consequences which included hurting relationships and isolating oneself. Contributing during interactive discussion on common potholes to effectively communicating. Identified personal communication pothole as shutting down. Pt was able to relate and make connections between the experiential activity and the overall topic, managing emotions through activity by using calming skills and self-talk. Benefited from increased awareness of how stress and emotions can impact one's ability to communicate. Will continue in IOP to promote use of healthy coping skills, reduce negative thinking patterns, and improve mood stability. Narrative Note: []
--- NOTE | 2025-01-20 11:10 | BH.SGPN.GN ---
Behaviors/Verbalizations/Mental Status: [] Eye contact is fair. Motor activity is appropriate. Appearance is casual. Speech is Appropriate. Mood is dysthymic. Affect is congruent. Thoughts are linear and logical. No evidence of psychosis. Client Response/Progress/Benefit: [] Client engaged in session AEB client listening attentively to peers and providing input. Attentive during psychoeducation on 4 zones of regulation. Pt able to identify feelings and behaviors for each zone. Pt identified coping skills one can use to support self in each zone. Pt reports skills he wants to practice to get out of the blue zone are: opposite action, watching a movie, and talking to someone. Benefited from increased education on zones of regulation or stages of alertness for emotions and healthy coping skills to use for each zone. Pt will continue IOP tx to prevent decompensation, increase healthy coping, and stabilize mood.
--- NOTE | 2025-01-20 12:10 | BH.MDN ---
Multi-Disciplinary Note Note 45-min Individual: Time Started:: 12:10 Date: 01/20/25 Purpose of session/treatment goals addressed:: Reviewed current symptoms and progress in IOP. Focused on treatment goal 1; obj 1 and 2. Eye Contact:: Good Motor Activity:: Appropriate Appearance:: Casual Speech:: Appropriate Mood:: Anxious Affect:: Congruent Thoughts:: Linear, Logical and No evidence of hallucinations/delusions noted Staff Interventions:: rapport building and taught coping skills (5 senses, breathing techniques) Client Response:: The initial portion of today?s session focused on identifying physiological indicators of anxiety and practicing coping strategies. The patient engaged in breathing exercises and the ?5 senses? grounding technique. We discussed both preventative and [id number] strategies for managing anxiety and panic symptoms. The patient responded positively to these interventions. We reviewed the patient?s mood and sleep tracker for the past week. Although the patient reported poor sleep quality, the tracker indicates an average of six hours of sleep per night. This includes one night of delayed sleep onset due to binge-watching television until 2:00 AM. The patient has established a sleep routine and environment that appear to be supportive of improved sleep hygiene. He continues to engage in daily reflection, identifying coping skills utilized throughout the day. Tracker data highlights primary stressors related to interpersonal conflict with his and financial concerns. The patient previously requested that the program psychiatrist and treatment team consider a part-time return to work; however, he has since reconsidered. He expressed that work responsibilities would be challenging due to ongoing medical issues (e.g., neck pain, knee pain, dizziness, tremors) and mental health concerns (e.g., cognitive difficulties, anxiety, hyperfocus, memory impairment). Risks/Concerns:: No risks or concerns noted. Progress Toward Goals/Plan:: The patient continues to respond well to the Intensive Outpatient Program (IOP) level of care and reports benefiting from the social support and psychoeducational components. He is a diligent note-taker and finds value in the educational material, though he struggles with applying the information in daily life. He continues to experience rumination and guilt related to his inability to return to work but demonstrates insight into his current limitations. Collateral information was obtained from family regarding the patient?s functioning at home (refer to communication note). There is notable tension in the marital relationship. The treatment plan includes reaching out to the patient?s to schedule a family session aimed at providing psychoeducation on Schizoaffective Disorder and discussing prognosis. Time Stopped:: 12:50
--- NOTE | 2025-01-20 14:16 | BH.COMM_ITS ---
Communication Note Communication with Client Communication Note: Spoke with pt's and daughter over the phone on individually. Pt has expressed continued anxiety and distress over being unemployed for the past year which has impacted his mental health. He reports pressure from his to return to work and this has resulted in him increased stress, ruminations, and feelings of guilt/shame. He approached this therapist last week on several occasions asking if he can return to work. This therapist discussed case with Dr. Baumann who recommended seeking collateral from family. Pt's is frustrated and stressed as she is currently working two jobs and believes that him returning to work would alleviate financial burdens. However she is unsure if he can manage a job and responsibilities in his current state. She wanted to talk with their daughter and agreed to call me back. Pt's daughter called the following day. According to her pt's functioning, motivation, mental health, and physical health are inconsistent. One day he presents as functioing well enough to return to
--- NOTE | 2025-01-20 14:16 | BH.COMM ---
Communication Note Communication with Client Communication Note: This therapist spoke individually with the patient?s and daughter via phone to gather collateral information regarding the patient?s current functioning and readiness to return to work. The patient has expressed ongoing anxiety and emotional distress related to being unemployed for the past year, which has significantly impacted his mental health. He reports feeling pressured by his to resume employment, which has led to increased stress, persistent ruminations, and pronounced feelings of guilt and shame. Over the past week, the patient has approached this therapist multiple times to inquire about returning to work. In response, this therapist consulted with Dr. Baumann, who recommended obtaining collateral information from family members to better assess the patient?s readiness and overall functioning. Collateral from : The patient?s expressed frustration and emotional strain, noting that she is currently working two jobs to support the household. She believes that the patient returning to work could help alleviate financial stress. However, she also voiced uncertainty about his ability to manage work-related responsibilities given his current mental and emotional state. She indicated a desire to speak with their daughter before providing further input and agreed to follow up. Collateral from Daughter: The patient?s daughter contacted this therapist the following day. She reported that the patient?s functioning, motivation, and both mental and physical health are inconsistent. She described a pattern in which the patient appears capable of working on some days, but on others, he struggles significantly. He frequently makes contradictory statements such as ?I have to go back to work? followed by ?I can?t work.? The daughter believes that the pressure from the patient?s is contributing to his internal conflict and emotional instability. She also disclosed that there is significant interpersonal conflict within the household and expressed concern that her mother may be considering leaving the relationship due to ongoing frustration. Clinical Impression: Based on the patient?s self-report and collateral information from family members, the overall consensus is that returning to work at this time would likely exacerbate the patient?s psychological distress and interpersonal conflict. His emotional state remains fragile, and his functioning is inconsistent, suggesting that he is not currently equipped to handle the demands of employment. The pressure to return to work appears to be contributing to increased anxiety, guilt, and family tension, rather than serving as a stabilizing or therapeutic goal. Recommendation: Will discuss further with Dr. Baumann and treatment team later this week. At this point is recommended that the patient continue with therapeutic support and refrain from returning to work until there is clear and sustained improvement in his mental health, emotional regulation, and daily functioning. Further family involvement and possibly family therapy may be beneficial to address relational dynamics and reduce conflict. Plan to speak with pt's later this week to set up a family session.
--- NOTE | 2025-01-22 08:22 | PCM.BH.PN_ITS ---
Intake Vital Signs 01/04/25 19:56 01/22/25 08:23 Height 5 ft 8 in 5 ft 8 in Intake Visit Reasons: Medication follow-up Allergies fluticasone (From Flonase) Allergy (Verified 01/04/25 19:58) nose bleed latex Allergy (Verified 01/04/25 19:58) Rash red dye Allergy (Verified 01/04/25 19:58) Rash Sulfa (Sulfonamide Antibiotics) Allergy (Verified 01/04/25 19:58) Unknown benztropine Adverse Reaction (Severe, Verified 01/04/25 19:58) vision changes lorazepam (From Ativan) Adverse Reaction (Mild, Verified 01/04/25 19:58) paranoid Medications ?Medication ?Instructions ?Recorded ?Confirmed ?Type omeprazole 40 mg capsule,delayed 40 mg PO BID 11/27/24 01/01/25 History release levothyroxine 125 mcg tablet 100 mcg PO DAILY disorder of 12/10/24 01/01/25 History thyroid gland paliperidone 3 mg tablet,extended 3 mg PO QAM #30 tabs 12/21/24 01/01/25 Rx release 24 hr ([facility]) paliperidone palmitate 234 mg/1.5 234 mg (1.5 mL) IM Q MONTH 28 days 12/21/24 01/01/25 Rx mL intramuscular syringe #1.5 mL lamotrigine 150 mg tablet 150 mg PO QDAY #30 tabs 12/0801/01/25 Rx zolpidem 10 mg tablet 10 mg PO QHS PRN insomnia #3 0 tabs 12/22/24 01/01/25 Rx alfuzosin 10 mg tablet,extended 10 mg PO 01/01/25 His tory release 24 hr meclizine 25 mg tablet 25 mg PO TID PRN dizziness 0 01/01/25 01/01/25 History trihexyphenidyl 2 mg tablet 1 mg (1/2 x 2 mg) PO BID P RN 01/22/25 Rx tremor #30 tabs HPI () History of Present Illness History provided by: patient Chief complaint: Follow-up HPI: Conner Serrano is a 59 year old male who presents today for follow up ev aluation. Patient reports that he has been doing good. Reports that he has been recognizing things in his life and has been pushing back. Describes some interpersonal difficulties in relationship but is working on communication skills. Has had a somewhat improved relationship with his sister and his mom in the event his relationship fails. Still awaiting disability ruling at this time. Has gotten the increased dose of the paliperidone injection and has stopped the oral overlap. Is sleeping better with the use of zolpidem to this point. Does feel like he has some intermittent symptoms of tremor. Some minor evidence today. Couldn't tolerate benztropine secondary to vision changes. Had low heart rate with propranolol. Otherwise if functioning much better. Denies SI/HI or AVH. Review of systems () Constitutional Denies: fever(s), chills, change in weight or fatigue Eyes Denies: change in vision or blurry vision Ears, Nose, Mouth, Throat Denies: throat pain, neck pain or change in hearing Cardiovascular Denies: chest pain, palpitations or dyspnea Respiratory Denies: dyspnea, cough or wheezing Gastrointestinal Denies: abdominal pain, nausea, vomiting, diarrhea or constipation Genitourinary Denies: dysuria or urinary frequency Musculoskeletal Denies: back pain, neck pain, joint pain or muscle weakness Integumentary/Breast Denies: rash or new lesions Neurological Reports: other (Tremor); Denies: headache(s), dizziness or confusion Endocrine Denies: fatigue or excessive sweating Hematologic/Lymphatic Denies: easy bruising or easy bleeding Allergic/Immunologic Denies: wheezing Exam Mental Status Exam- Psych () Appearance casually dressed Attitude cooperative Activity/Motor Behavior MSE activity/motor behavior finding no adventitious movements Speech regular rate, regular volume, regular prosody and other (somewhat verbose) Mood OK (Good) Affect congruent Thought Process linear, logical and coherent Thought Content no delusions and no hallucinations Suicidal Ideation none Homicidal Ideation none Attention intact Concentration intact Sensorium/Orientation awake, alert and oriented x3 Memory/Cognition other (appropriate for stated age) Insight fair Judgement good Assessment & Plan () Assessment & Plan (1) Schizoaffective disorder: Plan: - Continue paliperidone 234 mg injection monthly - reports to feeling like he did better with splitting lamotrigine dosing time (2) Catatonia: Plan: - History of; no evidence at this time (3) Extrapyramidal and movement disorder: Plan: - Endorses a tremor which is not evident today however has a history with antipsychotic use ? Will try low-dose trihexyphenidyl to control symptoms ? Aware of side effects of anticholinergic medications Medications: Discontinued olanzapine Discontinued Reason: Pt no longer taking 5 mg PO QHS 30 tabs 1RF Charges/Coding Multi Select Codes Behavior Health Behavior Health EST Pt E/M: 30830 Est Pt Level IV
--- NOTE | 2025-01-22 09:00 | BH.SGPN.GN ---
Behaviors/Verbalizations/Mental Status: [] Client alert and oriented, casual appearance. Eye contact good. Motor activity appropriate. Speech within normal limits. Affect congruent, mood euthymic. Thoughts linear, logical, no signs of hallucinations or delusions. Reviewed client's symptom tracker, no risk for suicidal ideation, plan, or intent. Client Response/Progress/Benefit: [] Client responded well to session AEB listening to others and sharing thoughts/feelings. Client reported mental positive as getting up earlier this morning was able to get a few things accomplished before coming to IOP. Client noted additional mental positive as doing spiritual work this morning before IOP. Client noted current stressor as there is a take care of money things today. Client noted current emotion as happy. Appeared to benefit from support from peers. Will continue IOP tx to promote use of healthy coping skills, challenge negative thoughts, and prevent decompensation. Narrative Note: []
--- NOTE | 2025-01-22 10:00 | BH.SGPN.GN ---
Behaviors/Verbalizations/Mental Status: []Pt alert and oriented, casually dressed and groomed. Eye contact good. Motor activity appropriate. Speech within normal limits. Affect congruent, mood calm. Thoughts linear, logical, no signs of hallucinations or delusions. Client Response/Progress/Benefit: [] Pt was an active participant in group discussions. Attentive during psychoeducation on the CBT [place] (Thoughts, Behaviors, Emotions). Engaged in group discussion on how thoughts and behaviors can contribute to maintaining adverse feelings, such as depression, anxiety, and irritability. Completed worksheet in which pt identified obstacles and/or thoughts that are keeping them stuck. Shared obstacles that included; not feeling good enough or like a burden. Pt benefited from increased awareness of the basis of CBT therapy as well as specific thoughts that are impacting pt's progress. Will continue in IOP to prevent decompensation, improve daily functioning, and reduce negative thinking patterns. Narrative Note: []
--- NOTE | 2025-01-22 11:00 | BH.SGPN.GN ---
Behaviors/Verbalizations/Mental Status: []Pt alert and oriented, casually dressed and groomed. Eye contact good. Motor activity appropriate. Speech within normal limits. Affect congruent, mood dysthymic. Thoughts linear, logical, no signs of hallucinations or delusions. Client Response/Progress/Benefit: [] Pt responded well to session, contributing to discussion and attentive throughout. Pt identified a negative thought that has kept them stuck. Pt's thought was I'm too much to handle?. Pt reported when they think this way, pt isolates, over apologies, or shuts down. Pt worked to reframe the thought by finding more rational, realistic ways to look at the thoughts and then processed them within group setting. Pt reframed the thought to ?I have support who wants to be there for me?. Pt appeared to benefit from practicing challenging negative thinking with peers and gaining coping skills. Pt will continue IOP tx to promote mood stability, increase thought challenging, and further increase self-care. Narrative Note: []
--- NOTE | 2025-01-27 09:05 | BH.SGPN.GN ---
Behaviors/Verbalizations/Mental Status: [] Eye contact is good. Motor activity is appropriate. Appearance is casual. Speech is Appropriate. Mood is euthymic. Affect is full. Thoughts are linear and logical. No evidence of psychosis. Reviewed daily check in sheet and no reports of suicidal ideations or intent. Client Response/Progress/Benefit: [] Pt participated when prompted. Attentive. Daily symptom tracker notes no distress. According to pt he volunteered over the weekend and spent time with his family both of which were beneficial to his mental health. Elaborated brief on the mental health benefits. He remains stressed and anxious about SSDI paperwork. According to pt his son-in-law is helping him with organizing and completing the paperwork. Emotion for today is ?happy?. Progress noted. Benefited from group support, encouragement, and feedback. Alen continue in IOP to prevent decompensation/re-admission to psych unit, stabilize mood, and increase healthy coping. Narrative Note: []
--- NOTE | 2025-01-27 10:15 | BH.SGPN.GN ---
Behaviors/Verbalizations/Mental Status: []Eye contact is good. Motor activity is appropriate. Appearance is casual. Speech is Appropriate. Mood is euthymic Affect is congruent. Thoughts are linear and logical. No evidence of psychosis. Client Response/Progress/Benefit: [] Pt receptive to session AEB listening attentively to others and taking notes. Pt attentive and contributed throughout psychoeducation on the cognitive triangle and maintenance cycles. Pt engaged during group discussion reviewing the impact of daily activities and behaviors in either reinforcing unhealthy maintenance cycles and depression or assisting in reducing symptoms (?down? vs ?up? activities). Pt participated during interactive discussion in which pt identified their own common up activities (yard work and being around family) and down activities (isolating and not taking medications). Appeared to benefit from increased awareness of current behaviors and impact these have on mental health. Will continue IOP to prevent decompensation, improve self-confidence, and build social support. Narrative Note: []
--- NOTE | 2025-01-27 15:33 | BH.MTP_ITS ---
Treatment Plan Review Demographics Date of Admission:: 12/30/24 Date of Treatment Plan Review:: 01/27/25 Admitting Diagnoses:: Schizoaffective, Bipolar Type Current Diagnoses:: Schizoaffective, Bipolar Type Patient Status Patient's Response to Treatment:: Consistent and engaged in IOP level of care. Outcomes scores show an overall 46% reduction in symptoms since starting [facility] level of care. Outcomes indicate an 80% reduction on the depression domain, a 63% reduction on the anxiety domain, and a 29% reduction on the jay domain. Insight that daily mood tracker, daily journaling, daily thought reframing exercises, socialization, and support from IOP peers have been very beneficial. Status of Current Problems and Symptoms: Primary stressor is related to marital conflict and his inability to work. Significant daily ruminations on his mental health struggles the past year which included 3 psychiatric admissions and loss of job. Struggling to accept the limitations of current mental health functioning while reporting pressure from his to return to work. According to pt his mental health struggles are most prominent when he is alone. Medication compliant with no reports of psychosis, jay, significant depressive episodes, paranoia, or disorganized thoughts. Progress Problem #1: Problem Name:: Schizoaffective Disorder Status of Goals:: Obj1- Incomplete. Psychoeducation on Schizoaffective Disorder was discussed with patient, however has not completed task to identify 2-3 symptoms which impact daily functioning. Obj 2- Completed, Pt has completed daily mood/sleep tracker since first week, however this is an ongoing objective. Obj 3- Incomplete- Pt can list several anxiety coping skills however struggles to incorporate consistently. Also has limited confidence in his ability to manage his emotions. Overall his scores on the anxiety have decreased 63% Team Recommendations:: Continue with current treatment plan goals. Suggestion to have a session with pt's to address her concerns and provide education on Schizoaffective Disorder.
--- NOTE | 2025-01-28 09:05 | BH.SGPN.GN ---
Behaviors/Verbalizations/Mental Status: [] Eye contact is good. Motor activity is appropriate. Appearance is casual. Speech is Appropriate. Mood is depressed. Affect is flat. Thoughts are linear and logical. No evidence of psychosis. Reviewed daily check in sheet and no reports of suicidal ideations or intent. Client Response/Progress/Benefit: [] Pt participated when prompted. Limited engagement in group. Daily symptom tracker notes 06/14 for anxiety and depression. Reports mood is ?worse? since last visit. Shared that he was very tired and fatigued yesterday stating that he slept for a majority of the day. Continues to feel ?tired? today. Emotion is ?calm? however its unclear if reasons for fatigue are related to mental health, simply being tired, or medical issues. No progress noted. He did mention that he had a job interview today. He set up the interview despite being recommended not to work by his physician. Pt believes he has to still set up interview to appease unemployment. Limited benefit from group today as he appeared disengaged. Will continue in IOP to prevent decompensation/re-admission to psych unit, stabilize mood, and improve functioning. Narrative Note: []
--- NOTE | 2025-01-28 10:10 | BH.SGPN.GN ---
Behaviors/Verbalizations/Mental Status: [] Eye contact is fair. Motor activity is appropriate. Appearance is casual. Speech is Appropriate. Mood is dysthmic. Affect is constricted. Thoughts are linear and logical. No evidence of psychosis. Client Response/Progress/Benefit: [] Pt engaged in session AEB listening attentively to others and providing input throughout. Pt engaged in activity, able to connect how it can be uncomfortable and difficult to practice acceptance when situations are out of one?s own control. Identified what they are struggling to accept in personal life. Worked with peer group to define acceptance and identify the benefits that acceptance can bring. Benefits included; reduce stuckness, reduced stress, helps one to focus on situations we can change, and decreased negative self-talk. Seemed to benefit from increased awareness of the meaning as well as the importance of acceptance. Will continue in IOP to stabilize mood, challenge distortions, and prevent decompensation.
--- NOTE | 2025-01-28 11:15 | BH.MDN_ITS ---
Multi-Disciplinary Note Note 30-min Individual: Time Started:: 11:15 Date: 01/28/25 Purpose of session/treatment goals addressed:: Reviewed 4 week outcomes score with patient. Developed behavioral activation goals. Eye Contact:: Good Motor Activity:: Slowed Appearance:: Casual Speech:: Soft Mood:: Depressed Affect:: Flat Thoughts:: Linear, Logical and No evidence of hallucinations/delusions noted Staff Interventions:: reviewed DSM-5 and goal setting Client Response:: Pt reports increased fatigue for the past few days which has impacted his motivation. Reports that he slept all day yesterday and again has low energy today. No specific trigger noted. Reports feeling low and slightly depressed. Reviewed outcomes scores which show an overall 46% reduction in symptoms since starting IOP level of care. Outcomes indicate an 80% reduction on the depression domain, a 63% reduction on the anxiety domain, and a 29% reduction on the jay domain. Overall outcomes indicate significant reduction in symptoms. Insight that daily mood tracker, daily journaling, daily thought reframing exercises, socialization, and support from IOP peers have been very beneficial. Due to lack of motivation we decided to set SMART goals for this weekend to increase behavioral activation. Set 5 goals and encouraged pt to utilize opposite action if needed to complete the goals. Pt agreeable. Risks/Concerns:: No risks or concerns noted. Denies suicidal ideations, plan, or intent. Progress Toward Goals/Plan:: Progress noted in IOP overall, however struggles in the past two days with avoidance, fatigue, and depression. No specific trigger to worsening symptoms however he continues to ruminate on his inability to work, marital conflict, and his future. He came in today and mentioned he has a job interview scheduled for this afternoon. According to Conner, unemployment benefits require him to apply for two jobs per week, and he received a call for an interview. Although he agrees that he is currently unable to work, he feels compelled to continue applying for jobs until your letter is submitted. I was not aware of this situation until today. We attempted to probl em-solve in the moment. He requested a letter from his psychiatrist to present to unemployment regarding his inability to work. Conner began taking low-dose trihexyphenidyl but discontinued it after two days, reporting dizziness as a side effect. He also mentioned experiencing increased fatigue and slept through the entire day yesterday. While this may not necessarily indicate a decompensation, we will continue to monitor him closely. Will continue in IOP to prevent decompensation/re-admission to psych unit, and provide support. Time Stopped:: 11:45
--- NOTE | 2025-01-29 09:00 | BH.SGPN.GN ---
Behaviors/Verbalizations/Mental Status: [] Pt alert and oriented, neatly dressed and groomed. Eye contact good. Motor activity appropriate. Speech within normal limits. Affect constricted, mood euthymic. Thoughts linear, logical, no signs of hallucinations or delusions. Reviewed pt?s symptom tracker, no risk for suicidal ideation, plan, or intent 01/29/25. Client Response/Progress/Benefit: []Pt was an active participant in group discussions. Attentive. Able to identify mental health wins including ?I had a job interview yesterday and I have one again today.? Pt also noted that he had a good family diner last night with his . Pt's stressor today is ?also the job interview.? The group offered pt encouragement and emotional support which pt reported was helpful. Pt is feeling ?happy.? this morning. Pt receptive to feedback from peers. Benefited from group support, encouragement, and feedback. Progress noted. Will continue IOP tx to promote mood stabiliy, increase self-confidence, and gain routine outisde of IOP. Narrative Note: []
--- NOTE | 2025-01-29 10:10 | BH.SGPN.GN ---
Behaviors/Verbalizations/Mental Status: []Pt alert and oriented, casually dressed and groomed. Eye contact good. Motor activity appropriate. Speech within normal limits. Affect constricted, mood dysthymic. Thoughts linear, logical, no signs of hallucinations or delusions. Client Response/Progress/Benefit: [] Pt responded well to session AEB sharing and listening attentively to others. Group provided examples of types of support (professional, pets, hobbies, community, spouse, aidan, etc) as well as benefits of having social support, including: validation, get perspective, and accountability. Pt also participated in group discussion regarding the barriers to accessing support and pt?s barriers included; unrealistic expectations and fearing he will be a burden. Pt participated in experiential activity illustrating the impact communication, boundaries, and patience play in creating healthy support systems. Pt appeared to benefit from increased knowledge of the benefits of social support and greater self-awareness. Pt to continue IOP to increase self-confidence and reinforce healthy coping skills to improve daily functioning. Narrative Note: []
--- NOTE | 2025-01-29 11:15 | BH.SGPN.GN ---
Behaviors/Verbalizations/Mental Status: []Client alert and oriented, casually dressed and groomed. Eye contact good. Motor activity appropriate. Speech within normal limits. Affect congruent, mood dysthymic. Thoughts linear, logical, no signs of hallucinations or delusions. Client Response/Progress/Benefit: [] Pt participated throughout AEB contributing to discussion, providing examples, and taking notes. Pt provided input during discussion on the types of support our supports can provide. Pt able to identify current support system and barriers that get in the way of using supports. Pt reported after identifying what type of supports pt receives, pt gained awareness that pt could benefit from more emotional support by putting more effort into consistently reaching out to supports. Pt seemed to benefit from identifying the type of support pt needs to work on improving. Pt recommended to continue IOP tx to promote increase mood stability, improve healthy communication, and prevent decompensation. Narrative Note: []
--- NOTE | 2025-02-02 09:05 | BH.SGPN.GN ---
Behaviors/Verbalizations/Mental Status: [] Eye contact is fair. Motor activity is appropriate. Appearance is casual. Speech is Appropriate. Mood is dysthymic. Affect is flat. Thoughts are linear and logical. No evidence of psychosis. Reviewed daily check in sheet and no reports of suicidal ideations or intent. Client Response/Progress/Benefit: [] Pt participated when prompted. Attentive. Daily symptom tracker shows no distress across all emotions. Shared that he spent the weekend with his and did not mention any arguments or pressure to return to work. Did not complete behavior activation goals for the weekend. According to pt his mood is calm. I didn't get anything done and I slept a lot. Pt denies any mental health distress however states that sleeping helps pass the time. Less talkative and engaged in the past week. Will continue to monitor. Reports medication compliance. Limited progress noted as he did not complete goals, however denies ruminations or worry regarding job and future. Benefited from group support,encouragement, and feedback. Will continue in IOP to prevent decompensation, stabilize mood, and improve functioning. Narrative Note: []
--- NOTE | 2025-02-02 10:10 | BH.SGPN.GN ---
Behaviors/Verbalizations/Mental Status: []Pt alert and oriented, neatly dressed and groomed. Eye contact good. Motor activity appropriate. Speech within normal limits. Affect constricted, mood depressed. Thoughts linear, logical, no signs of hallucinations or delusions. Client Response/Progress/Benefit: [] Pt was an active participant AEB taking notes and engaging in group activity. Connected with the topic of pitfalls and listened to group discussion on barriers that prevent from choosing a healthier path to mental wellness. Group worked together to identify examples of personal pitfalls. These examples included; shutting down, not asking for help, negative thinking patterns, avoidance, and isolation. Pt benefited from group as Pt learned to better identify potential barriers to improving mental health symptoms. Identified personal barrier of lack of motivation and shutting down. Pt will continue IOP tx to promote use of healthy coping skills, prevent decompensation, and improve self-confidence. Narrative Note: []
--- NOTE | 2025-02-02 11:10 | BH.SGPN.GN ---
Behaviors/Verbalizations/Mental Status: []Client alert and oriented, casually dressed and groomed. Eye contact good. Motor activity appropriate. Speech within normal limits. Affect congruent, mood depressed. Thoughts linear, logical, no signs of hallucinations or delusions. Client Response/Progress/Benefit: [] Pt receptive of session, engaged throughout AEB Pt actively listening and contributing to discussion as well as taking notes.? Pt participated in the experiential activity and did well to communicate ideas with peers and manage emotions. Pt attentive as group processed how the emotions and perspective of the group impacted the activity. Group worked together to identify different coping skills to help manage pitfalls. Pt identified a pitfall they struggle with as ?lashing out?. Pt plans to work on their pitfall by challenging themselves to reach out for help before the point of lashing out and check-in with himself. Benefited from identifying personal pitfalls and strategies to overcome these pitfalls. Pt will continue IOP tx to prevent decompensation, improve daily functioning and mood stability, and increase healthy communication. ? Narrative Note: []
--- NOTE | 2025-02-03 09:05 | BH.SGPN.GN ---
Behaviors/Verbalizations/Mental Status: [] Eye contact is good. Motor activity is appropriate. Appearance is casual. Speech is Appropriate. Mood is depressed. Affect is flat. Thoughts are linear and logical. No evidence of psychosis. Reviewed daily check in sheet and no reports of suicidal ideations or intent. Client Response/Progress/Benefit: [] Pt participated when prompted. Attentive. Daily symptom tracker shows no significant distress. Marked ?0? for all symptoms. He continues to report excessive fatigue. States that he is tired with limited energy and motivation. He has not followed through with mood tracking or behavioral activation goals. Limited progress noted. He reports fatigue however denies any significant depression or emotional distress. Benefited from group support and encouragement. Will continue in IOP to prevent decompensation and stabilize mood. Narrative Note: []
--- NOTE | 2025-02-03 10:30 | BH.MDN ---
Multi-Disciplinary Note Note 30-min Individual: Time Started:: 10:30 Date: 02/03/25 Purpose of session/treatment goals addressed:: Reviewed current progress and functioning. Focused on behavioral activation. Eye Contact:: Fair Motor Activity:: Appropriate Appearance:: Casual Speech:: Soft Mood:: Dysthymic Affect:: Congruent Thoughts:: Linear, Logical and No evidence of hallucinations/delusions noted Staff Interventions:: psychoeducation on: (behavioral activation) and goal setting (set small behavioral activation goals) Client Response:: Pt continues to report low energy and fatigue. Staff have noticed this for the past 2 weeks. He reports feeling tired throughout the day. I just feel blah. Consistent attendance however less engaged and talkative in IOP. Continues to take notes and is attentive during groups. No difficulties with comprehension or motor skills. He denies feeling depressed, sad, and stressed just tired. He has always reported looking forward to IOP however admits he didn't want to attend today. He overslept and missed holiness this weekend which is another activity he enjoys. According to pt he has had these blah episodes in the past and they typically last a couple weeks. Throughout the summer he was surrounded by his , fidel, and his daughter however last week the grandkids returned to school and his returned to work (she is superintendent of schools) which had left him alone throughout the day. This has resulted in limited social interaction, responsibilities, and purpose. He did not follow through with any of the behavioral activation goals we developed last week. Risks/Concerns:: Denies suicidal ideations, plan, or intent. His daily symptom tracker show no significant emotional distress with O's for depression, anxiety, and irritability. Progress Toward Goals/Plan:: Decompensation in the past two weeks with decreased engagement in IOP, low energy, low motivation, isolation, and increased sleep. Admits to sleeping more to pass the day. Struggling to find purpose throughout the day which leads to sleep. This has impacted his sleep schedule causing him to sleep poorly at night. Therapist continues to provide education on behavioral activation and set small goals. Set small morning goals which include 15-30 minutes on bible meditation outside in the AM with the hopes this will elicit a change in behaviors. It's odd that he is not reporting any emotional distress in addition to being fatigued. Denies any conflict or significant ruminations at home. Pt reports compliance with medications, including thyroid. Will continue in IOP to prevent decompensation, provide support, and encourage use of healthy coping. Time Stopped:: 11:00
--- NOTE | 2025-02-03 11:10 | BH.SGPN.GN ---
Behaviors/Verbalizations/Mental Status: []Eye contact is good. Motor activity is appropriate. Appearance is casual. Speech is Appropriate. Mood is dysthymic. Affect is flat. Thoughts are linear and logical. No evidence of psychosis. Client Response/Progress/Benefit: [] Pt was an engaged participant AEB listening attentively to others and providing input throughout group. Pt along with group members, identified strategies to manage inappropriate guilt. Identified a personal example of inappropriate guilt as ?beating myself up for the past.? Pt wants to work on combatting inappropriate guilt by learning to forgive myself when I fail.? Pt seemed to benefit from learning about strategies to manage appropriate and inappropriate guilt. Pt to continue IOP tx to promote mood stability, increase motivation, and reduce isolation. ? Narrative Note: []
--- NOTE | 2025-02-04 09:00 | BH.SGPN.GN ---
Behaviors/Verbalizations/Mental Status: [] Eye contact is poor. Motor activity is appropriate. Appearance is casual. Speech is Appropriate but limited. Mood is depressed. Affect is constricted. Thoughts are linear and logical. No evidence of psychosis. Reviewed daily check in sheet and no reports of suicidal ideations or intent. Client Response/Progress/Benefit: [] Pt was an inactive participant in group discussions. Looking down at floor the majority of session. Declined to share or offer feedback/suggestions to fellow participants. Did appear to benefit from group support however. Pt recommended continued IOP tx to improve mood stability, prevent decompensation, and promote healthy skill application. Narrative Note: []
--- NOTE | 2025-02-04 10:00 | BH.SGPN.GN ---
Behaviors/Verbalizations/Mental Status: []Pt alert and oriented, neatly dressed and groomed. Eye contact good. Motor activity appropriate. Speech within normal limits. Affect constricted, mood dysthymic. Thoughts linear, logical, no signs of hallucinations or delusions. Client Response/Progress/Benefit: [] Pt was passive participant in group discussion and active in the experiential activity. Attentive during psychoeducation on resilience and provided input throughout. Participated in interactive discussion with peers on the definition of resilience and where it comes from. Group identified that resiliency can be impacted by; past experiences, upbringing, and personality traits. Able to relate experiential activity of group juggle to topics of resilience. Worked with peers in small group in which they identified factors that contribute to resilience and did well providing ideas. Benefited from increased awareness of resilience and the factors that contribute to building resilience. Will continue in IOP tx to reduce isolative behaviors and improve daily functioning. Narrative Note: []
--- NOTE | 2025-02-04 11:00 | BH.SGPN.GN ---
Behaviors/Verbalizations/Mental Status: [] Eye contact is fair. Motor activity is appropriate. Appearance is casual. Speech is Appropriate. Mood is depressed. Affect is congruent. Thoughts are linear and logical. No evidence of psychosis. Client Response/Progress/Benefit: [] Pt responded well to session AEB completing the resilience worksheet provided. Limited participation in the discussion unless prompted however did work cooperatively with group to identify strategies to enhance each of the components discussed. Pt was able to identify resiliency traits they already possess as well as areas related to resilience to focus on in the future which included maintain hopeful outlook. Pt seemed to benefit from discussing strategies for improving personal resilience and identifying resilience traits Pt already possesses. Will continue IOP tx to prevent decompensation/re-admission to psych unit, provide support, and stabilize mood. Narrative Note: []
== END 2025-02-07 23:59 ==
LOC: BHIOP 07:51
PROVIDERS: PCP Family Medicine; Referring Provider Student in an Organized Health Care Education/Training Program; Visit Provider Student in an Organized Health Care Education/Training Program
DX: F25.0 Schizoaffective disorder, bipolar type (principal); F20.2 Catatonic schizophrenia; G25.9 Extrapyramidal and movement disorder, unspecified; Z79.899 Other long term (current) drug therapy
CPT/HCPCS: S9480; 90832; 90834; 90853

== ENCOUNTER 2025-02-09 07:14 | Outpatient (RCR) | payer OTHER, SELFPAY ==
--- NOTE | 2025-02-09 09:05 | BH.SGPN.GN ---
Behaviors/Verbalizations/Mental Status: [] Eye contact is good. Motor activity is appropriate. Appearance is casual. Speech is Appropriate. Mood is dysthymic. Affect is congruent. Thoughts are linear and logical. No evidence of psychosis. Reviewed daily check in sheet and no reports of suicidal ideations or intent. Client Response/Progress/Benefit: [] Pt participated with prompted. Attentive. Daily symptom tracker show no distress today. Shared with the group his activities for the weekend which included spending time with his grandkids. Continues to report low motivation and energy. ? Tired again?. No progress noted. Remains disengaged and tired. Limited benefit from group. Alen continue in IOP to prevent decompensation, provide support, and improve functioning. Narrative Note: []
--- NOTE | 2025-02-09 10:10 | BH.SGPN.GN ---
Behaviors/Verbalizations/Mental Status: [] Eye contact is fair. Motor activity is appropriate. Appearance is casual. Speech is Appropriate. Mood is dysthymic. Affect is congruent. Thoughts are linear and logical. No evidence of psychosis. Client Response/Progress/Benefit: [] Pt was an active participant during interactive group discussions. Attentive during psychoeducation on the six types of boundaries (physical, emotional, intellectual, sexual, time, and material) AEB note-taking and providing input. Along with peers contributed to interactive discussion on defining what a boundary is in mental health. Pt along with peers identified challenges to setting boundaries such as guilt, feeling selfish, negative past experiences, fear of conflict, and limited knowledge on setting boundaries. Pt along with peers identified the benefits to setting boundaries such as better relationships, increased time for self-care, and increased confidence, and feeling more heard. Group discussed the mental health benefits to establishing boundaries at work, school, and home. Pt benefited from increased awareness and insight on the importance/benefit to setting health boundaries. Will continue in IOP to improve mood stability, challenge negative thoughts, and prevent decompensation.
--- NOTE | 2025-02-09 11:10 | BH.SGPN.GN ---
Behaviors/Verbalizations/Mental Status: []Pt alert and oriented, casually dressed and groomed. Eye contact fair to good. Motor activity appropriate. Speech within normal limits. Affect congruent, mood dysthymic. Thoughts linear, logical, no signs of hallucinations or delusions. Client Response/Progress/Benefit: [] Client responded well to session AEB listening attentively to peers, providing input when prompted, as well as taking notes throughout. Group discussed different styles of boundary setting. Participated in small group discussion brainstorming various strategies for improving healthy boundary setting. Pt took time to complete reflection on which skills would like to implement to improve boundaries. Plans to challenge self by using opposite action to say no anyway when tempted to give in or go back on a boundary. Seemed to benefit from increased awareness of how different boundary styles can impact mental health. Will continue IOP tx prevent decompensation, increase use of healthy coping skills, and reduce negative thinking patterns. Narrative Note: []
--- NOTE | 2025-02-10 09:05 | BH.SGPN.GN ---
Behaviors/Verbalizations/Mental Status: [] Eye contact is good. Motor activity is appropriate. Appearance is casual. Speech is Appropriate. Mood is depressed. Affect is flat. Thoughts are linear and logical. No evidence of psychosis. Reviewed daily check in sheet and no reports of suicidal ideations or intent. Client Response/Progress/Benefit: [] Pt participated when prompted. Attentive. Daily symptom tracker notes limited distress 1/5 for depression. Continues to be disengaged from group discussions and report low energy as well as motivation. States that he is tired throughout the day and is sleeping more than usual. Reports mild depression and anxiety. Attending a family event last night. No progress noted. Limited benefit aside from support. Will continue in IOP to prevent decompensation, provide support, and monitor mood. Narrative Note: []
--- NOTE | 2025-02-10 10:10 | BH.SGPN.GN ---
Behaviors/Verbalizations/Mental Status: [] Client alert and oriented, casually dressed and groomed. Eye contact good. Motor activity appropriate. Speech within normal limits. Affect congruent, moodcontent. Thoughts linear, logical, no signs of hallucinations or delusions. Client Response/Progress/Benefit: [] Client responded well to session AEB contributing to discussion, taking notes, and listening attentively to others. Group discussed the benefits of managed anger and anger as a secondary emotion. Client participated in anger iceberg discussion. Group reported outward personal signs of anger as lashing out verbally, physical fights, destruction of property, self-harm, and self-sabotage. Group Identified underlying emotions that contribute to anger including being dismissed, rejection, assumptions, being lied too, and micromanaging. Appeared to benefit from increased knowledge of the underlying emotions that impact anger and increased self-awareness of the internal and external consequences of anger. Client will continue IOP program to stabilize mood, reduce negative self-talk, and prevent decompensation. Narrative Note: []
--- NOTE | 2025-02-10 11:15 | BH.MDN_ITS ---
Multi-Disciplinary Note Note 30-min Individual: Time Started:: 11:15 Date: 02/10/25 Purpose of session/treatment goals addressed:: Reviewed current symptoms and progress in IOP. Continued to work on behavioral activation. Eye Contact:: Good Motor Activity:: Appropriate Appearance:: Casual Speech:: Soft Mood:: Dysthymic Affect:: Flat Thoughts:: Linear, Logical and No evidence of hallucinations/delusions noted Staff Interventions:: motivational interviewing, psychoeducation on: (behavioral activation), discharge planning and goal setting Client Response:: The patient states he is OK... still really tired. He reports increased daytime sleep, often taking a two-hour nap in the afternoon and spending most of the day vegetating. These naps and limited physical activity appear to be negatively impacting his nighttime sleep quality, as he reports frequent awakenings: I'm waking up through the night. The patient has partially followed through with behavioral activation goals from the previous week. He is meditating approximately 2?3 times per week. Since his returned to work and his grandson resumed school, the patient spends most days alone at home. He describes this experience as lonely. Despite efforts to engage him with local [facility] resources, he has not followed through. Attempts to contact his for collateral information and to arrange a family session have been unsuccessful; she has not returned calls. The patient has not attended [employer] in the past two weeks. However, he continues to participate in family events, such as holiday gatherings and his grandson?s football games. He does not initiate social activities independently. Risks/Concerns:: no risks or concerns noted. Symptom tracker shows no suicidal ideations or any mental health distress. Progress Toward Goals/Plan:: The patient reports increased fatigue and low energy over the past two weeks. He is unable to identify any specific trigger. He denies experiencing anxiety, stress, anger, or significant depression, though he acknowledges occasional mild depressive symptoms, stating, Sometimes I'm a little sad and lonely. He denies any psychotic symptoms. The patient reports no issues with focus, concentration, or memory. He continues to take notes during group sessions but demonstrates limited engagement compared to the initial weeks of IOP. The patient remains compliant with prescribed medications. His next scheduled Invega injection is set for this weekend. He did not complete the mood/symptom tracker this week and only partially followed through with behavioral activation goals. Motivational interviewing strategies were utilized to support behavior change. Behavioral activation goals were collaboratively developed for the remainder of the week and weekend. The patient was receptive to reframing current struggles as opportunities to apply learned skills and identified strategies to improve his sleep cycle. Time Stopped:: 11:45
--- NOTE | 2025-02-12 07:39 | PCM.BH.PN_ITS ---
Intake Vital Signs 01/22/25 08:23 Height 5 ft 8 in Intake Allergies fluticasone (From Flonase) Allergy (Verified 01/04/25 19:58) nose bleed latex Allergy (Verified 01/04/25 19:58) Rash red dye Allergy (Verified 01/04/25 19:58) Rash Sulfa (Sulfonamide Antibiotics) Allergy (Verified 01/04/25 19:58) Unknown benztropine Adverse Reaction (Severe, Verified 01/04/25 19:58) vision changes lorazepam (From Ativan) Adverse Reaction (Mild, Verified 01/04/25 19:58) paranoid Medications ?Medication ?Instructions ?Recorded ?Confirmed ?Type omeprazole 40 mg capsule,delayed 40 mg PO BID 11/27/24 01/01/25 History release levothyroxine 125 mcg tablet 100 mcg PO DAILY disorder of 12/10/24 01/01/25 History thyroid gland paliperidone 3 mg tablet,extended 3 mg PO QAM #30 tabs 12/21/24 01/01/25 Rx release 24 hr (Invega) paliperidone palmitate 234 mg/1.5 234 mg (1.5 mL) IM Q MONTH 28 days 12/21/24 01/01/25 Rx mL intramuscular syringe #1.5 mL lamotrigine 150 mg tablet 150 mg PO QDAY #30 tabs 12/0801/01/25 Rx zolpidem 10 mg tablet 10 mg PO QHS PRN insomnia #3 0 tabs 12/22/24 01/01/25 Rx alfuzosin 10 mg tablet,extended 10 mg PO 01/01/25 His tory release 24 hr meclizine 25 mg tablet 25 mg PO TID PRN dizziness 0 01/01/25 01/01/25 History trihexyphenidyl 2 mg tablet 1 mg (1/2 x 2 mg) PO BID P RN 01/22/25 Rx tremor #30 tabs
--- NOTE | 2025-02-12 08:55 | BH.COMM ---
Communication Note Communication with Client Communication Note: Pt called and cancelled for IOP this AM. Was scheduled to meet with psychiatry as well. Per staff who took phone call pt appeared to be tearful on the phone. Therapist called back however no answer. Reached out and spoke with pt's . She has not concerns for safety stating that he verbalized a stomach ache this morning.
--- NOTE | 2025-02-15 09:05 | BH.SGPN.GN ---
Behaviors/Verbalizations/Mental Status: [] Eye contact is good. Motor activity is appropriate. Appearance is casual. Speech is Appropriate. Mood is depressed. Affect is congruent. Thoughts are linear and logical. No evidence of psychosis. Reviewed daily check in sheet and no reports of suicidal ideations or intent. Client Response/Progress/Benefit: [] Pt participated when prompted. Attentive. Daily symptom tracker notes 06/14 for depression. 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 He continues to report fatigue and low energy. He obtained his Invega shot over the weekend as well. Feeling optimistic. Limited progress noted. Benefited from group support, encouragement, and feedback. Will continue in IOP to prevent decompensation/re-admission to psych, improve functioning, and stabilize mood. Narrative Note: []
--- NOTE | 2025-02-15 10:10 | BH.SGPN.GN ---
Behaviors/Verbalizations/Mental Status: []Pt alert and oriented, casually dressed and groomed. Eye contact good. Motor activity appropriate. Speech within normal limits. Affect constricted, mood tired. Thoughts linear, logical, no signs of hallucinations or delusions. Client Response/Progress/Benefit: [] Pt was an attentive and active participant, AEB taking notes and providing input in group discussion. Attentive during psychoeducation. Pt engaged during interactive discussion in which the group defined self-care and discussed its benefits. Group discussed barriers and benefits to self-care. Identified benefits as being more productive, feeling more grounded, feeling happier, less irritability, and being more capable. Pt participated in small groups where they worked to identify and challenged common self-care ?myths?. Benefited from increased awareness of self-care, its benefits, and the consequences of not utilizing self-care strategies. Pt connected with myths of self-care being selfish and too much energy. Will continue IOP tx to promote mood stability, increase social connection, and reinforce healthy coping skills. ? Narrative Note: []
--- NOTE | 2025-02-15 11:10 | BH.SGPN.GN ---
Behaviors/Verbalizations/Mental Status: []Pt alert and oriented, casually dressed and groomed. Eye contact fair. Motor activity appropriate. Speech within normal limits. Affect congruent, mood euthymic. Thoughts linear, logical, no signs of hallucinations or delusions. Client Response/Progress/Benefit: []Pt engaged participant AEB completing self-assessment worksheet and providing input throughout discussion. Participated in group discussion on the various areas of self-care. Pt completed worksheet identifying current self-care practices and what self-care activities pt wants to start using. Pt engaged in self-reflection activity in which pt's were asked to identify one area of self-care they would like to improve upon. Appeared to benefit from completing the self-care evaluation and gaining insights into current self-care practices, as well as identifying areas in which pt ?would like to improve upon.?Will continue IOP to improve mood stability, promote healthy coping, and prevent decompensation.
--- NOTE | 2025-02-15 11:10 | BH.SGPN.GN ---
Behaviors/Verbalizations/Mental Status: []Client alert and oriented, casual appearance. Eye contact fair. Motor activity appropriate. Speech within normal limits. Affect constricted, mood anxious. Thoughts linear, logical, no signs of hallucinations or delusions. Client Response/Progress/Benefit: [] Pt engaged participant AEB completing self-assessment worksheet and providing input throughout discussion. Pt completed worksheet identifying current self-care practices and what self-care activities Pt wants to start using. Pt reported he realizes he uses sleep too often which can be a form of escape. Pt stated he wants to work on decreasing his naps. Appeared to benefit from completing the self-care evaluation and gaining insights into current self-care practices, as well as identifying areas in which Pt would like to improve upon. Pt will continue IOP tx to stabilize moods, increase healthy coping skills, and prevent decompensation.
--- NOTE | 2025-02-17 09:00 | BH.SGPN.GN ---
Behaviors/Verbalizations/Mental Status: [] Eye contact is good. Motor activity is appropriate. Appearance is casual. Speech is Appropriate. Mood is content. Affect is congruent. Thoughts are linear and logical. No evidence of psychosis. Reviewed daily check in sheet and pt reports 0/5 for suicidal thoughts and 0/5 for intent. Client Response/Progress/Benefit: [] Pt participated when prompted. Attentive. Emotion for today is anxious. Mental health wins reported to be using his supports to work through a difficult stressor yesterday. Additional win noted as continuing to make progress in better communicating his needs with supports. Current stressor noted as ongoing issues with processing and coping with past trauma. Progress noted per pt report. Benefited from group support, encouragement, and feedback. Will continue in IOP to prevent decompensation, improve mood stability, and increase healthy coping. Narrative Note: []
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
--- NOTE | 2025-02-17 11:10 | BH.SGPN.GN ---
Behaviors/Verbalizations/Mental Status: []Pt alert and oriented, neatly dressed and groomed. Eye contact good. Motor activity appropriate. Speech within normal limits. Affect full, mood excited-potentially hypomanic. Thoughts linear, logical, no signs of hallucinations or delusions. Client Response/Progress/Benefit: [] Pt responded well to session, taking notes and participating in worksheet discussion. Pt connected with the discussion on action steps, and this helped pt learn how to set goals differently. Pt set a SMART goal that pt will ?go do my social security stuff at [facility] and ask a friend to come with me.? Pt shared that if he does this before Saturday he will be more likely to follow through. Appeared to benefit from identifying a small goal to benefit mental health. Pt is to continue IOP tx to promote mood stability, increase use of healthy coping skills, and provide social support. Narrative Note: []
--- NOTE | 2025-02-18 15:30 | BH.MDN ---
Multi-Disciplinary Note Note Family: Time Started:: 15:30 Date: 02/18/25 Purpose of session/treatment goals addressed:: Family session with with the purpose of providing psychoeducation on Schizoaffective D/O and reviewing pt's progress. Eye Contact:: Good Motor Activity:: Appropriate Appearance:: Neat Speech:: Appropriate Mood:: Irritable and Depressed Affect:: Full Thoughts:: Linear, Logical and No evidence of hallucinations/delusions noted Staff Interventions:: psychoeducation on: Client Response:: Met with patient's , Christina, for the purpose of providing psychoeducation regarding Schizoaffective Disorder, reviewing the patient?s clinical progress, and addressing family concerns. Christina presented as tearful throughout the session, expressing significant emotional distress and frustration related to the challenges of supporting a loved one with severe mental illness. She reported that this year has been particularly difficult, citing three psychiatric hospitalizations due to symptoms including paranoia, disorganized thinking, and catatonia. Additionally, the patient has been unable to maintain employment for over a year, contributing to financial strain and interpersonal tension within the household. Christina described ongoing concerns regarding the patient?s lack of follow-through with daily tasks, medication non-compliance (messes with his medications), and unpredictable mood fluctuations. She shared that she often feels compelled to provide constant reminders and guidance, likening her role to that of a donor relations coordinator rather than a partner. These stressors have negatively impacted their marital relationship, and previous attempts at family counseling have yielded limited benefit. During the session, Christina was receptive to education on how depressive episodes, manic symptoms, and psychosis can impair functioning, motivation, and cognitive abilities. She acknowledged that while the patient is currently functioning better than he has all year, his mood instability remains a barrier to consistent employment. Although she has encouraged him to return to work for the structure it may provide, she recognizes that his current level of functioning may lead to inconsistent performance, increased distress, and potential job loss. Christina agreed that greater clinical stability is necessary before considering a return to work and expressed openness to continued support and education. Risks/Concerns:: n/a Progress Toward Goals/Plan:: Christina reported long-standing concerns regarding the patient?s erratic mood patterns and emotional dysregulation. She noted that the patient experienced a ?bad two weeks,? referring to a depressive episode characterized by low energy and motivation, which has also been observed by IOP staff. She further reported a noticeable shift in the patient?s behavior this week, with increased energy levels suggestive of a possible transition into a hypomanic state. Christina shared that the patient did not take his prescribed sleep medication on 02/16/25 and required prompting to take it on 02/17/25. Despite taking the medication, he only slept approximately four hours. She agreed to monitor for further signs of hypomania or jay and to reach out with any additional concerns. Christina was receptive to the discussion and expressed that the session was helpful. The family is currently focused on pursuing disability benefits for the patient, as it is becoming increasingly evident that he may not be able to maintain consistent employment. The patient reportedly visited a local agency with friends earlier today to obtain the necessary paperwork and instructions to initiate the disability application process. Time Stopped:: 16:15
--- NOTE | 2025-02-19 08:45 | BH.MDN ---
Multi-Disciplinary Note Note 30-min Individual: Time Started:: 08:45 Date: 02/19/25 Purpose of session/treatment goals addressed:: Review current symptoms. Eye Contact:: Good Motor Activity:: Appropriate Appearance:: Casual Speech:: Pressured and Other (circumstantial thought process- off topic but connection to original discussion) Mood:: Euphoric Affect:: Bright Thoughts:: Racing (Racing (racing thoughts however are connected to discussion/topic)) Staff Interventions:: other (support, encouragement) Client Response:: Spoke with the patient this morning at his request. He reported experiencing an auditory hallucination the previous evening while preparing for bed, describing it as hearing voices or people talking. This episode caused significant anxiety and concern about potential decompensation. The patient was able to manage his distress by listening to music but reported poor sleep, estimating only 3?4 hours of rest. Struggling with sleep since 02/16/25. According to pt he is medication compliant. Denies any SI, HI, or paranoia. The patient endorsed increased energy and motivation and has demonstrated symptoms consistent with elevated mood since 02/17/25, including pressured speech, circumstantial and racing thoughts, impulsivity (reached to friend in [place] to discuss shared trauma) and a euthymic affect. These observations raise concern for a possible transition into a hypomanic episode (see note dated 02/17/25 for additional context). Risks/Concerns:: Denies any suicidal ideations. Denies HI or paranoia. Progress Toward Goals/Plan:: Pt was praised for telling staff of hallucinations. In the past I wouldn't have. Stressed the importance of medication adherence and sleep. Reached out to program psychiatrist Dr. Baumann to update on symptoms. He recommends that pt begin to take 3mg oral Invega at bedtime over the weekend in hopes of stabilizing symptoms. Will reach out to family to update them, obtain collateral, and to ensure pt follow through. Time Stopped:: 09:00
--- NOTE | 2025-02-19 09:05 | BH.SGPN.GN ---
Behaviors/Verbalizations/Mental Status: [] Eye contact is good. Motor activity is appropriate. Appearance is casual. Speech is pressured. Mood is euthymic. Affect is full. Circumstantial thought process. No evidence of psychosis. Reviewed daily check in sheet and no reports of suicidal ideations or intent. Client Response/Progress/Benefit: [] Pt was an active participant in group discussions. Attentive. Daily symptom tracker notes 09/12 for anxiety. Pt continues to present as hypomanic this week. Prior to group her reported poor sleep last night as well as an auditory hallucination. Had to be re-directed at times as he was talking over peers however did respond well to redirection. Goal-directed today on completing paperwork and appeal letter for unemployment benefits. These two tasks are causing significant stress, anxiety, and rumination. Presents as hypomanic this week. Spoke with program psychiatrist prior to group who is recommending medication adjustments to prevent decompensation. Plans to speak with pt and family about changes. Will continue in IOP to prevent decompensation. Narrative Note: []
--- NOTE | 2025-02-19 10:15 | BH.SGPN.GN ---
Behaviors/Verbalizations/Mental Status: []Pt alert and oriented, neatly dressed and groomed. Eye contact good. Motor activity appropriate. Speech- more talkative. Affect full, mood excited. Thoughts linear, logical, no signs of hallucinations or delusions. Client Response/Progress/Benefit: [] Pt was attentive during psychoeducation and participated in group activity. Group discussed what influences a person?s perspective and how perspective can positively or negatively impact mental health treatment. Group identified several factors that can influence perspective which include; mood, current stressors, sleep, health, hunger, and several others.?Pt appeared to benefit from increasing awareness of different perspectives and how they can affect mental health. Pt noted that their perspective today is ?positive, I feel like I?m getting support here.? Pt will continue IOP tx to monitor mood, prevent psychosis, and improve daily functioning. Narrative Note: []
--- NOTE | 2025-02-19 11:10 | BH.SGPN.GN ---
Behaviors/Verbalizations/Mental Status: []Pt alert and oriented, casually dressed and groomed. Eye contact fair. Motor activity appropriate. Speech within normal limits. Affect constricted, mood dysthymic. Thoughts linear, logical, no signs of hallucinations or delusions. Client Response/Progress/Benefit: [] Pt was attentive and contributed to group discussion. Pt worked with group to identify strategies that can help with challenging negative perspective. Pt stated he wants to work on seeking input and support from others to help challenge a negative perspective. Benefited from identifying strategies that can help with improving perspective and identifying one strategy to focus on to improve current perspective. Pt will continue IOP tx to stabilize moods, improve daily functioning, and prevent decompensation.
--- NOTE | 2025-02-22 09:05 | BH.SGPN.GN ---
Behaviors/Verbalizations/Mental Status: [] Eye contact is good. Motor activity is appropriate. Appearance is casual. Speech is Appropriate. Mood is euthymic. Affect is full. Thoughts are linear and logical. No evidence of psychosis. Reviewed daily check in sheet and no reports of suicidal ideations or intent. Client Response/Progress/Benefit: [] Pt was an active participant in group discussions. Attentive. Daily symptom tracker notes 3/5 for anxiety and 2/5 for agitation. Presents today no pressured speech and thoughts a less circumstantial. Shared with the group that he completed his spiritual meditation yesterday and hope to make this a more consistent part of his week. He also attended spiritism this weekend which he has missed for the past several weeks. Less conflict with as well stating I had a nice time with my . Focused today on conflict with his sister and mother, however did not elaborate on the cause of the conflict. Insight that he must step back and allow time and space to let things settle. Overalll appears to be stabilizing after medication changes over the weekend. Will continue in IOP to prevent decompensation, stablize mood, and improve functioing. Narrative Note: []
--- NOTE | 2025-02-22 10:10 | BH.SGPN.GN ---
Behaviors/Verbalizations/Mental Status: []Eye contact is fair. Motor activity is appropriate. Appearance is casual. Speech is Appropriate. Mood is euthymic. Affect is congruent. Thoughts are linear and logical. No evidence of psychosis. Client Response/Progress/Benefit: []Pt participated in the group discussions AEB providing input and taking notes. Attentive during psychoeducation on SMART Goal Setting. Pt worked with group to identify common barriers to goal setting which included; mental health struggles, energy/motivation, limited support, change to routine, lack or resources, having unrealistic goals, and our internal expectations. Group also identified benefits of goals, which included: promotes a sense of accomplishment, it challenges oneself, can boast confidence, and can cause positive change/growth. Benefited from increased awareness of mental health benefits of goals as well as psychoeducation on SMART goal criteria. Will continue in IOP to challenge distortions, improve mood stability, and prevent decompensation.
--- NOTE | 2025-02-22 11:10 | BH.SGPN.GN ---
Behaviors/Verbalizations/Mental Status: []Pt alert and oriented. Appearance is casual, hygiene is appropriate. Eye contact good. Motor activity appropriate. Speech within normal limits. Affect is euthymic. Mood is congruent. Thoughts linear, logical, no signs of hallucinations or delusions. Client Response/Progress/Benefit: [] Pt was engaged during discussion and experiential activity. Completed the worksheet challenging them to develop a personal SMART goal. Pt chose a SMART goal to spend quality time with his and write down two positives a day. Believes this goal will benefit pt by giving pt and his time to connect. Identified obstacles such as getting discouraged and finding time in their busy schedule. Brainstormed strategies to help her manage potential barriers. Benefited from this group by developing a short-term SMART goal related to mental health. Will continue IOP to monitor mood, increases self-confidence, and improve daily functioning. ?? Narrative Note: []
--- NOTE | 2025-02-22 12:10 | BH.MDN_ITS ---
Multi-Disciplinary Note Note 45-min Individual: Time Started:: 12:15 Date: 02/22/25 Purpose of session/treatment goals addressed:: Review current symptoms and functioning. Eye Contact:: Good Motor Activity:: Appropriate Appearance:: Casual Speech:: Appropriate Mood:: Dysthymic Affect:: Congruent Thoughts:: Linear, Logical and No evidence of hallucinations/delusions noted Staff Interventions:: thought challenging, psychoeducation on: (Hypomania) and goal setting Client Response:: . The patient presents today with a reduction in hypomanic symptoms compared to the previous week. Sleep and mood tracking data indicate the following sleep durations: 6 hours on Saturday, 2 hours on Saturday, and 5 hours last night. The patient reports not taking his prescribed sleep medication or Invega last night, which contributed to difficulty falling asleep until approximately 2:30 a.m. He stated, ?I was up doing things. While his affect remains slightly elevated, there is notable improvement from last week. The session focused primarily on a situational conflict involving his mother and sister regarding sentimental items belonging to his late father. The patient appears to have initiated this discussion during a hypomanic episode, which escalated into arguments. This situation was used as an opportunity to provide psychoeducation on the impact of hypomania on interpersonal relationships. We discussed how racing thoughts can impair communication and problem-solving abilities. The patient was receptive to this information and expressed agreement. Although he initially blamed himself for the conflict, we worked together to reframe this perspective in a more compassionate and constructive manner. Risks/Concerns:: no risks or concerns noted. Progress Toward Goals/Plan:: The patient presents with continued progress and reduced hypomanic symptoms today, though sleep remains suboptimal. He reports non-compliance with prescribed medication on Saturday. Despite this, he expresses appreciation for the [facility] staff?s support throughout recent depressive and hypomanic episodes.Today?s session was utilized to express frustrations and engage in problem-solving around current situational stressors. Since the last session, his daughter has filed an unemployment appeal on his behalf, which has helped alleviate some of his stress. The remaining administrative task is filing for disability benefits. The patient appears to be stabilizing, though he continues to experience racing thoughts and ruminations. He benefits from opportunities to vent and receive reassurance. He has a scheduled appointment with his psychiatrist tomorrow. The current plan is to discharge the patient from [facility] and transition him to aftercare services, contingent upon continued stability. This humphrey his eighth week in the program. Time Stopped:: 01:00
--- NOTE | 2025-02-24 09:00 | BH.SGPN.GN ---
Behaviors/Verbalizations/Mental Status: [] Client alert and oriented, casual appearance. Eye contact good. Motor activity appropriate. Speech within normal limits. Affect congruent, mood euthymic. Thoughts linear, logical, no signs of hallucinations or delusions. Reviewed client's symptom tracker, no risk for suicidal ideation, plan, or intent. Client Response/Progress/Benefit: [] Client responded well to session AEB listening to others and sharing thoughts/feelings. Client reported mental positive as giving himself self-compassion for making comments to family members while he was manic over the weekend. Client stated he was feeling upset with himself, but recognizes he has to let it go and not beat himself up. Client noted positive as feeling like his mood is stabilizing. Appeared to benefit from support from peers. Will continue IOP tx to stabilize mood, challenge distortions, and prevent decompensation.
--- NOTE | 2025-02-24 10:10 | BH.SGPN.GN ---
Behaviors/Verbalizations/Mental Status: []Pt alert and oriented, neatly dressed and groomed. Eye contact good. Motor activity appropriate. Speech within normal limits. Affect congruent, mood euthymic. Thoughts linear, logical, no signs of hallucinations or delusions Client Response/Progress/Benefit: []Pt took notes and contributed to group discussions. Attentive during psychoeducation on growth mindset. Interactive group discussion on fixed mindset in which group verbalized their current fixed mindsets and how they affect their mental health. Pt shared common fixed mindset thoughts they have. Pt shared a personal fixed thought I will never get along with stephan because I am broken.? Pt able to connect negative impact fixed thoughts have on functioning. Pt benefited from increased awareness of growth mindset and fixed thoughts and how fixed thoughts impact their mental health. Will continue IOP tx to reinforce healthy coping skills, improve daily functioning, and establish aftercare Narrative Note: []
--- NOTE | 2025-02-24 11:15 | BH.SGPN.GN ---
Behaviors/Verbalizations/Mental Status: []Pt alert and oriented, casually dressed and groomed. Eye contact good. Motor activity appropriate. Speech within normal limits. Affect congruent, mood content. Thoughts linear, logical, no signs of hallucinations or delusions. Client Response/Progress/Benefit: [] Pt was an active participant during activity and discussion. Pt did well to remain attentive and participate as group worked on identifying characteristics and benefits of adopting a growth mindset. Worked with fellow participants in reframing the example fixed thoughts into growth mindset thoughts. Pt worked on changing own fixed thought. Pt?s reframed thought was ?Everyone has hard moments. I am continuing to grow.? Pt attentive during discussion about different strategies that can help with fostering a growth mindset. Pt appeared to benefit from challenging own thoughts and engaging in the activity. Pt will continue IOP tx to increase distress tolerance, improve self-compassion, and prevent decompensation. Narrative Note: []
--- NOTE | 2025-02-26 10:10 | BH.SGPN.GN ---
Behaviors/Verbalizations/Mental Status: [] Pt alert and oriented, casually dressed and groomed. Eye contact good. Motor activity appropriate. Speech within normal limits. Mood: depressed. Affect: congruent. Thoughts linear, logical, no signs of hallucinations or delusions. Client Response/Progress/Benefit: [] Pt participated when prompted during group discussions. Attentive during psychoeducation on self-sabotage and its impact on mental health. Attentive as peers worked to define self-sabotage and identify reasons individuals perform self-sabotage behaviors (easy route at the time, feel as those we don't deserve any better, FOF, comfortable, etc). Attentive as peers identified the forms of self-sabotage that impact their mental health. Attentive during psychoeducation on types of self-sabotage; Procrastination, perfectionism, self-medication, poor communication,and chronic cancelling. Seemed to benefit from gaining awareness about the self-sabotage. Pt to continue IOP tx to prevent decompensation/re-admission to psych unit, stabilize mood, increase healthy coping, and improve daily functioning. Narrative Note: []
--- NOTE | 2025-02-26 11:10 | BH.SGPN.GN ---
Behaviors/Verbalizations/Mental Status: []Pt alert and oriented, casually dressed and groomed. Eye contact good. Motor activity appropriate. Speech within normal limits. Affect congruent, mood euthymic and anxious. Thoughts linear, logical, no signs of hallucinations or delusions. Client Response/Progress/Benefit: [] Pt responded well to session, engaged and contributing. Pt discussed with group things that contribute to mental wellness life. With peers, pt discussed things that would sabotage one's mental health wellness. Pt identified things pt personally does to sabotage as people pleasing, poor communication, and not setting boundaries. Pt attentive during psychoeducation on ways to reduce self-sabotage and pt selected asking for help before he gets too overwhelmed ?as the skill that could help pt reduce self-sabotaging behaviors. Pt appeared to benefit from learning skills and gaining awareness of self-sabotaging behaviors. Pt will discharge from IOP tx as pt has accomplished his tx goals and no longer meets criteria for IOP level of care. Narrative Note: []
--- NOTE | 2025-02-26 12:15 | BH.MDN ---
Multi-Disciplinary Note Note 30-min Individual: Time Started:: 12:10 Date: 02/26/25 Purpose of session/treatment goals addressed:: Discharge planning. Review treatment outcomes. Eye Contact:: Good Motor Activity:: Appropriate Appearance:: Casual Speech:: Appropriate Mood:: Anxious Affect:: Congruent Thoughts:: Linear, Logical and No evidence of hallucinations/delusions noted Staff Interventions:: discharge planning, strengths perspective and reviewed DSM-5 Client Response:: Patient presents today appearing anxious and slightly fatigued, stating, ?I overslept today.? He continues to engage with psychiatry for medication management, with a current plan to reduce the interval between Invega injections in an effort to prevent future depressive and hypomanic episodes.The patient remains stable following a recent hypomanic episode. Sleep quality and duration are improving. This humphrey the patient's 8th week in Intensive Outpatient Program (IOP). He completed the DSM outcome measurement, which indicates an overall symptom reduction of 31% since admission on 12/30/2024. Outcome Highlights: Depression domain: 60% reduction Kathy domain: 29% reduction Anxiety domain: 50% reduction Additional reductions noted in the somatic symptoms and repetitive thoughts/urges domains. The patient reported only one brief auditory hallucination over the past 8 weeks. There have been no reports from the patient or family of paranoid delusions. However, a slight increase was observed in the anger domain. Risks/Concerns:: no risks or concerns noted Progress Toward Goals/Plan:: Discussed the patient?s progress in the Intensive Outpatient Program (IOP) level of care. Over the past 8 weeks, the combination of psychoeducation, therapeutic support, and medication management has proven effective in stabilizing symptoms of psychosis. During this period, staff identified both a depressive and a hypomanic episode, which provided valuable clinical insight and allowed psychiatry to make informed adjustments to the patient?s medication regimen. The patient currently presents as stable. Outcome measures and patient self-report indicate that IOP has been instrumental in preventing decompensation, particularly notable given the patient?s last psychiatric hospitalization in late November. The patient agrees with the planned discharge from [facility] today, as he no longer meets criteria and has achieved maximum therapeutic benefit from this level of care. Discharge Plan: Psychiatry follow-up: Dr. Baumann (appointment scheduled for early March) Counseling: Jake Hernandez (appointment scheduled in 2 weeks) Peer support: Plans to engage with [facility] aftercare group and local [facility] chapter Time Stopped:: 12:30
--- NOTE | 2025-02-26 14:00 | BH.DS_ITS ---
Discharge Summary Demographics Date of Admission:: 12/30/24 Discharge Date: 02/26/25 Presenting Problems at Admission:: Pt is a 59 year old male with hx of Schizoaffective Disorder, Bipolar type. Referred by [facility] after recent admission related to psychosis and paranoid thoughts in 11/2024. Hx of four previous psychiatric admissions with three admissions since February 2024. Prior to admission pt verbalized delusions that his was trying to poison and refused to take his psychiatric medications. First episode of psychosis occurred in 1997. Pt has not been able to work due to his mental health since January 2024 which is a significant stressor. Currently linked with local [employer] and [place] [employer] to receive job support. Endorses depressed mood, low motivation, anhedonia, erratic energy, racing thoughts, and memory issues. Excessive ruminations and worry mainly involving finances and his marriage. Discharge Diagnoses:: Schizoaffective disorder F25.9 Reason for Discharge:: The patient currently presents as stable. Outcome measures and patient self-report indicate that [facility] has been instrumental in preventing decompensation, particularly notable given the patient?s last psychiatric hospitalization in late November. The patient agrees with the planned discharge from [facility] today, as he no longer meets criteria and has achieved maximum therapeutic benefit from this level of care Treatment Progress During Treatment & Response: Pt was consistent throughout the program only cancelling one day. His level of engagement fluctuated with mood episodes. Over the past 8 weeks, the combination of psychoeducation, therapeutic support, and medication management has proven effective in stabilizing symptoms of psychosis. During this period, staff identified both a depressive and a hypomanic episode, which provided valuable clinical insight and allowed psychiatry to make informed adjustments to the patient?s medication regimen. e completed the DSM outcome measurement, which indicates an overall symptom reduction of 31% since admission on 12/30/2024. Outcome Highlights: Depression domain: 60% reduction Kathy domain: 29% reduction Anxiety domain: 50% reduction Additional reductions noted in the somatic symptoms and repetitive thoughts/urges domains. The patient reported only one brief auditory hallucination over the past 8 weeks. There have been no reports from the patient or family of paranoid delusions. However, a slight increase was observed in the anger domain. Issues Still to be Addressed:: Marriage conflict, Anger/irritability, isolation, daily structure, anxiety, guilt, depression and overall mood stability. Pt, psychiatrist, and pt's family are continuing to work on adjusting Invega shot to stablize moods (depressive vs hypomanic) however psychotic symptoms have been virtually non-existent for the past 8 weeks. Discharge Recommendations/Instructions:: Discharge Plan: Psychiatry follow-up: Dr. Baumann (appointment scheduled for early March) Counseling: Jake Hernandez (appointment scheduled in 2 weeks) Peer support: Plans to engage with [facility] aftercare group and local [facility] Discharge Handout
== END 2025-02-26 14:01 | disposition home or self-care (01) ==
LOC: BHIOP 07:14
PROVIDERS: PCP Family Medicine; Referring Provider Student in an Organized Health Care Education/Training Program; Visit Provider Student in an Organized Health Care Education/Training Program
DX: F25.9 Schizoaffective disorder, unspecified (principal)
CPT/HCPCS: S9480; 90832; 90834; 90853

== ENCOUNTER 2025-03-04 11:07 | Outpatient (RCR) | payer OTHER, SELFPAY ==
--- NOTE | 2025-03-04 14:00 | BH.COMM ---
Communication Note Communication with Client Communication Note: Patient completed IOP and presents today to start relapse prevention group which meets once weekly (1.5 hours) for 8 weeks. Case discussed with Dr. Baumann with plan to admit with dx of F25.9
== END 2025-03-09 23:59 ==
LOC: BHOG 11:07
PROVIDERS: PCP Family Medicine; Referring Provider Student in an Organized Health Care Education/Training Program; Visit Provider Student in an Organized Health Care Education/Training Program
DX: F25.9 Schizoaffective disorder, unspecified (principal)
CPT/HCPCS: 90853

== ENCOUNTER 2025-03-10 08:02 | Outpatient (RCR) | payer OTHER, SELFPAY ==
--- NOTE | 2025-03-11 17:40 | BH.MTP ---
Master Treatment Plan Patient Information Program Physician:: Dr. Hunter Baumann Primary Therapist:: Connie MCKEON Psychiatric Diagnoses Psychiatric Diagnoses:: Schizoaffective Disorder, Bipolar type Diagnosis Code(s):: F 25.0 Estimated LOS Estimated LOS (in weeks):: 8 Problem/Goal #1 Problem/Goal #1 Stated Goal:: client will maintain or see a reduction in symptoms AEB client score on the DSM 5 cross-cutting measure and improve client's daily functioning. Objectives Objective #1: Stated Objective: Client will continue to consistently apply healthy coping skills to maintain progress made in IOP tx. Interventions: Through group therapy, client will review warning signs and triggers as well as healthy coping skills learned in IOP tx to successfully maintain gains while transitioning into outpatient therapy. Discharge Criteria: Client will have accomplished this goal when client's score on the DSM-5 cross-cutting measure has maintained or reduced over a 8 week period. Target Date: 05/06/25 Review Date: 04/08/25 Status: open Objective #2: Stated Objective: Client will learn and utilize 2-3 maintenance strategies to prevent decompensation from original IOP DSM-5 scores. Interventions: Through group therapy, client will be provided with education on healthy maintenance behaviors, relapse prevention techniques, and healthy coping strategies. Discharge Criteria: Client will have accomplished this goal when can report using at least 2 maintenance skills to prevent decompensation compared to original IOP DSM-5 scores Target Date: 05/06/25 Review Date: 04/08/25 Status: open
--- NOTE | 2025-03-18 14:00 | BH.SGPN.GN ---
Behaviors/Verbalizations/Mental Status: []Pt alert and oriented, neatly dressed and groomed. Eye contact good. Motor activity appropriate. Speech within normal limits. Affect congruent, mood euthymic. Thoughts linear, logical, no signs of hallucinations or delusions. Client Response/Progress/Benefit: [] Pt took notes and contributed to group discussions. Pt reports he has been taking medications consistently and pt has been seeing her therapist. Pt identified coping skills he has been using which included: prayer and devotions, exercise, socializing, and deep breathing. Pt engaged in discussion on habits and how they are formed. Pt gave examples of how to build healthy habits and reported benefitting from habit stacking. Pt shared he wants to work on building the habit of walking for 15 minutes a day. Pt appeared to benefit from learning about building healthy habits and setting a habit goal. Will continue IOP tx to promote mood stability and use of healthy coping skills. Narrative Note: []
--- NOTE | 2025-04-01 16:00 | BH.TPR ---
Treatment Plan Review Demographics Date of Admission:: 03/11/25 Date of Treatment Plan Review:: 04/01/25 Admitting Diagnoses:: Schizoaffective Disorder, Bipolar type F25 Current Diagnoses:: Schizoaffective Disorder, Bipolar type F25 Patient Status Patient's Response to Treatment:: Pt responding well to treatment AEB pt's consistent attendance, active engagement in group discussions, follow up with outpatient providers, and reporting use of skills outside treatment environment. Pt utilizes IOP aftercare to process current stressors, gain social support, and maintain gains. Status of Current Problems and Symptoms: Per pt's DSM-5 assessment, pt is reporting an increase in anxiety symptoms including avoiding things that make pt anxious and feeling nervous/on edge nearly every day. Pt's stressors include family, finances, and maintaining mood stability. Progress Problem #1: Problem Name:: Pt will maintain or decrease symptoms from IOP admission data. Status of Goals:: Obj 1 - in progress as pt's overall DSM-5 scores are 4% less than pt's IOP admission. Pt reports less depression, but more anxiety recently Obj 2- complete with ongoing work encouraged. Pt reports using exercise, opposite action, and mindfulness skills. Team Recommendations:: Recommended pt continue IOP aftercare group to show maintenance of progress. Will continue to encourage pt to attend regular outpatient counseling and psychiatry appointments as well.
== END 2025-04-09 23:59 ==
LOC: BHOG 08:02
PROVIDERS: PCP Family Medicine; Referring Provider Student in an Organized Health Care Education/Training Program; Visit Provider Student in an Organized Health Care Education/Training Program
DX: F25.0 Schizoaffective disorder, bipolar type (principal)
CPT/HCPCS: 90853

== ENCOUNTER 2025-04-12 08:37 | Outpatient (RCR) | payer OTHER, SELFPAY ==
--- NOTE | 2025-04-15 14:00 | BH.SGPN.GN ---
Behaviors/Verbalizations/Mental Status: []Pt alert and oriented, neatly dressed and groomed. Eye contact good. Motor activity appropriate. Speech within normal limits. Affect congruent, mood euthymic. Thoughts linear, logical, no signs of hallucinations or delusions. Client Response/Progress/Benefit: [] Pt took notes and contributed to group discussions. Pt reports following up with their outpatient providers and taking medication. Pt identified coping skills pt has been using which included: socializing at the [facility], DDD, affirmations, and mindfulness. Pt engaged in discussion self-love, what it is, and how it is formed. Pt worked with peers during the experiential activity and connected it back to acceptance and self-love. Pt shared they can work on affirmations. Pt appeared to benefit from learning about self-love strategies and how to accept all parts of themselves. Will continue IOP aftercare to promote gains and reinforce healthy coping skills. Narrative Note: []
--- NOTE | 2025-04-29 16:00 | BH.DS_ITS ---
Discharge Summary Demographics Discharge Date: 04/29/25 Presenting Problems at Admission:: Pt is a 59 year old male with hx of Schizoaffective Disorder, Bipolar type, Pt was admitted to [facility] level of care from 01/01/25 through 02/26/25 and was successfully discharged. Upon complete of [facility] was was admitted to [facility] aftercare program to maintain gains and prevent decompensation. Pt was originally admitted to [facility] after psychiatric admission related to psychosis and paranoid thoughts in 11/2024. Hx of four previous psychiatric admissions with three admissions since February 2024. Prior to admission pt verbalized delusions that his was trying to poison and refused to take his psychiatric medications. Discharge Diagnoses:: Schizoaffective Disorder F25 Reason for Discharge:: Pt has accomplished tx goals AEB ability to maintain mood stability and gains made in [facility]. Treatment Progress During Treatment & Response: Pt responded well to treatment AEB pt's consistent attendance, ongoing attentiveness and engagement in group discussions, and continued reporting use of skills outside treatment environment Issues Still to be Addressed:: Long-standing hx of Schizoaffective Disorder with multiples psychiatric admissions. Pt continues experience infrequent epsiodes of hypomania and depressive episodes (low energy, anhedonia, fatigue, and anxiety). There also continues to be psychosocial stressors (marriage conflict, finacial struggles, and inability to work due mental health). Discharge Recommendations/Instructions:: Encouraged to follow up with outpatient psychiatrist Dr. Baumann. Pt already has appointments scheduled. While in the aftercare program pt was connected with local [facility] chapter for continued support which he has attended. He is also linked with Jake Hernandez for individual counseling. Discharge Handout
== END 2025-04-29 13:55 | disposition home or self-care (01) ==
LOC: BHOG 08:37
PROVIDERS: PCP Family Medicine; Referring Provider Student in an Organized Health Care Education/Training Program; Visit Provider Student in an Organized Health Care Education/Training Program
DX: F25.9 Schizoaffective disorder, unspecified (principal)
CPT/HCPCS: 90853